=== PATIENT | female | born 1930 | race Caucasian/White ===

== ENCOUNTER 2016-12-06 07:14 | Observation (INO) ==
--- NOTE | 2016-12-06 07:37 | Emergency Department Note ---
Disposition Clinical Impression: Left arm pain, Chest pain, rule out acute myocardial infarction Disposition: Admitted As Inpatient Referrals: Denis Pulido MD [Primary Care Provider] - Forms: ED Satisfaction Letter Time of Disposition: 08:32 Extremity Problem HPI - General Chief complaint: ED Extremity Problem,Nontraumatic Stated complaint: Left Arm Pain Time Seen by Provider: 12/06/16 07:24 Source: patient, family Limitations: no limitations Nursing Notes Reviewed: Yes Vital Signs Reviewed: Yes - History of Present Illness HPI Narrative: 86-year-old nontoxic-appearing female presents to the emergency department for a chief complaint of left arm pain. The patient denies any known injury or trauma that could account for this pain. Of note, the patient is a rather poor historian, there is a history of dementia documented. She is unable to describe or rate her pain, however when asked specifically where the pain is located, she points to her elbow and motions from the elbow to her wrist. She does however deny any chest pain, shortness of breath, cough, or fever. The patient's caregiver is at the bedside during my examination. The patient's caregiver states that she is given the patient her regularly prescribed medication without relief of symptoms. Pt Subjective Complaint: extremity pain (Left upper extremity pain) Onset (ago): day(s) (3 days) Consistency: constant Injury Location: left, upper extremity Pain Scale: 0 Radiation: distal (From the elbow distally) Improves with: nothing Worsens with: nothing Associated symptoms: Denies: chest pain, shortness of breath, abdominal pain, back pain, fever - Related Data Home Medications Medication Instructions Recorded Confirmed Atenolol [Tenormin] 100 mg PO DAILY 10/29/15 11/27/16 Cholecalciferol (Vitamin D3) 2,000 unit PO DAILY 10/29/15 11/27/16 [Vitamin D3] Cranberry Fruit Extract [Cranberry] 250 mg PO BID 10/29/15 11/27/16 Docusate Sodium [Colace] 100 mg PO BID PRN 10/29/15 11/27/16 Donepezil [Aricept] 10 mg PO HS 10/29/15 11/27/16 Folic Acid/Multivit-Min/Lutein 1 each PO DAILY 10/29/15 11/27/16 [Adult Multivitamin Gummies] Levothyroxine [Synthroid] 25 mcg PO DAILY 10/29/15 11/27/16 Memantine HCl [Namenda Xr] 21 mg PO DAILY 10/29/15 11/27/16 Ferrous Sulfate 325 mg PO BID 02/28/16 11/27/16 Mirabegron [Myrbetriq] 50 mg PO DAILY 07/04/16 11/27/16 Previous Rx's Medication Instructions Recorded Aspirin 81 mg PO DAILY tab.chew 03/02/16 Amlodipine [Norvasc] 5 mg PO DAILY #30 tablet 07/07/16 Anastrozole [Arimidex] 1 mg PO DAILY #90 tablet 08/28/16 Nitrofurantoin (BID) [Macrobid] 100 mg PO BID #14 capsule 11/27/16 Allergies Allergy/AdvReac Type Severity Reaction Status Date / Time No Known Allergies Allergy Verified 11/27/16 16:07 All systems ED: reviewed and negative except as stated. Constitutional: Denies: fever, chills, weakness, weight change Eyes: Denies: eye pain, eye discharge, vision change ENT ED: Denies: ear pain, throat pain, dental pain, hearing loss, epistaxis, congestion, dysphagia Cardiovascular: Denies: chest pain, palpitations, dyspnea on exertion, edema, syncope Respiratory: Denies: cough, dyspnea, wheezes, hemoptysis, stridor Gastrointestinal: Denies: abdominal pain, nausea, vomiting, diarrhea, constipation, hematemesis, melena, hematochezia Genitourinary: Denies: dysuria, frequency, hematuria, discharge Musculoskeletal: Reports: as per HPI, arthralgia (Left elbow pain), myalgia ( left Arm pain). Denies: back pain, neck pain Integumentary: Denies: rash, abrasion, lesions Neurological: Denies: headache, weakness, numbness, paresthesias, confusion, abnormal gait, vertigo Psychiatric: Denies: anxiety, depression, suicidal thoughts, homicidal thoughts , auditory hallucinations, visual hallucinations Endocrine: Denies: fatigue Hematological/Lymphatic: Denies: easy bleeding, easy bruising Allergic/Immunologic: Denies: facial swelling, urticaria Past Medical History - Past Medical History Attestation: Yes The following information was validated with the patient. 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 Absent: nystagmus - ENT ENT exam: mucous membranes moist - Neck Neck exam: Present: normal inspection, full ROM, trachea midline - Chest Chest inspection: Present: normal inspection, symmetric chest wall rise - Respiratory Respiratory exam: Present: normal lung sounds bilaterally. Absent: respiratory distress, wheezes, stridor, accessory muscle use, prolonged expiratory phase - Cardiovascular Cardiovascular exam: Present: normal rhythm, bradycardia (Ventricular rate of 49 bpm. The patient's caregiver has documentation from the patient's most recent visit at her primary care provider's office, where her heart rate was documented as 50 bpm.), normal heart sounds - Abdominal Exam Abdominal exam: Present: soft, Non-Tender, normal bowel sounds. Absent: tenderness, distention, guarding, rebound, rigidity - Expanded Upper Extremity Exam Shoulder exam: Present: normal inspection, full ROM. Absent: tenderness, tenderness over AC joint Arm exam: Present: normal inspection, full ROM. Absent: tenderness, swelling, abrasion, ecchymosis, deformity, erythema Elbow exam: Present: normal inspection, full ROM. Absent: tenderness (No tenderness to palpation), swelling, ecchymosis, deformity, crepitus, dislocation , erythema, effusion, pain w/ pronation/supination, tenderness over radial head Forearm/Wrist exam: Present: normal inspection, full ROM. Absent: tenderness, swelling, ecchymosis, deformity, crepitus, dislocation, erythema, tenderness over anatomical snuff box, pain with axial thumb loading Hand exam: Present: normal inspection, full ROM. Absent: tenderness, swelling Neuromotor exam: Normal: wrist extension, thumb opposition, fingers 2-5 abduction Neurosensory exam: Normal: radial nerve, ulnar nerve, 2-point discrimination Hand tendon exam: Normal: flexor digitorum profundus (location), extensor tendon (location) Vascular exam: Normal: capillary refill, radial pulse, ulnar pulse - Neurological Exam Neurological exam: Present: alert - Psychiatric Psychiatric exam: Present: normal affect, normal mood - Skin Skin exam: Present: warm, dry, intact, normal color Course Course Narrative: I have discussed with the patient's daughter who is at bedside that has the patient's complaint of nontraumatic left arm pain, we must rule out a cardiac origin of her pain. The patient's daughter is in agreement with this plan. The patient's daughter states she is given her her regularly prescribed extra strength Tylenol without relief of symptoms. The patient's daughter does state that the patient has complained of pain that radiates from the elbow down. We will obtain x-ray imaging of the elbow forearm and wrist as well as a complete cardiac workup. The patient denies any neck, jaw, or left shoulder pain. The patient's daughter he remains in the room states that the patient has not complained of any nausea, vomiting, worsening shortness of breath, or any other complaints at this time. I have discussed this patient's case with Dr. Jack, who recommends admission to the hospital service for observation. I discussed this plan with the patient 's daughter and the patient's daughter is in agreement. 0832: I spoke with Dr. Tellez of the hospital service who accepts the patient for admission for observation. Vital Signs Temperature 98.5 F 12/06/16 07:21 Pulse Rate 50 12/06/16 07:21 Respiratory Rate 18 12/06/16 07:21 Blood Pressure 112/87 12/06/16 07:21 O2 Sat by Pulse Oximetry 97 12/06/16 07:21 Temperature 98.5 F 12/06/16 07:21 Pulse Rate 44 12/06/16 08:34 Respiratory Rate 16 12/06/16 08:34 Blood Pressure 153/92 12/06/16 08:34 O2 Sat by Pulse Oximetry 96 12/06/16 08:34 Oxygen Delivery Oxygen Delivery Room Air Extremity Problem, Nontraumati - MDM Narrative Medical decision making narrative: The patient has a heart-MACE score of 5. - Medical Records Medical records reviewed: Yes I reviewed the patient's medical records. - Lab Data Lab results reviewed: Yes I reviewed the patient's lab results. Lab results narrative: Laboratory Last Values WBC 3.5 K/mcL (4.3-11.1) L 12/06/16 07:37 RBC 3.42 M/mcL (3.82-4.97) L 12/06/16 07:37 Hgb 11.4 g/dL (11.5-15.4) L 12/06/16 07:37 Hct 34.7 % (35.3-44.9) L 12/06/16 07:37 MCV 101.5 fL (83.0-100.0) H 12/06/16 07:37 MCH 33.3 pg (28.0-33.3) 12/06/16 07:37 MCHC 32.9 g/dL (31.6-35.5) 12/06/16 07:37 RDW 13.0 % (11.5-14.5) 12/06/16 07:37 Plt Count 136 K/mcL (140-400) L 12/06/16 07:37 MPV 10.1 fL (9.4-12.4) 12/06/16 07:37 Immature Gran % 0.3 % (0-4) 12/06/16 07:37 Seg Neutrophils % 62.3 % 12/06/16 07:37 Lymphocytes % 23.1 % 12/06/16 07:37 Monocytes % 11.7 % 12/06/16 07:37 Eosinophils % 2.3 % 12/06/16 07:37 Basophils % 0.3 % 12/06/16 07:37 Neutrophils # 2.2 K/mcL (1.6-8.9) 12/06/16 07:37 Lymphocytes # 0.8 K/mcL (0.6-4.6) 12/06/16 07:37 Monocytes # 0.4 K/mcL (0.0-1.3) 12/06/16 07:37 Eosinophils # 0.1 K/mcL (0.0-0.6) 12/06/16 07:37 Basophils # 0.0 K/mcL (0.0-0.2) 12/06/16 07:37 PT 10.6 Seconds (9.4-12.1) 12/06/16 07:37 INR 1.0 12/06/16 07:37 APTT 28.1 Seconds (26.0-36.0) 12/06/16 07:37 Sodium 140 mEq/L (136-145) 12/06/16 07:37 Potassium 4.1 mEq/L (3.5-4.5) 12/06/16 07:37 Chloride 105 mEq/L (98-109) 12/06/16 07:37 Carbon Dioxide 26 mEq/L (19-29) 12/06/16 07:37 BUN 31 mg/dL (7-20) H 12/06/16 07:37 Creatinine 1.55 mg/dL (0.57-1.11) H 12/06/16 07:37 Est GFR ( Amer) 39 (> 60) L 12/06/16 07:37 Est GFR (Non-Af Amer) 32 (> 60) L 12/06/16 07:37 BUN/Creatinine Ratio 20 (6-26) 12/06/16 07:37 Glucose 123 mg/dL (70-99) H 12/06/16 07:37 POC Glucose 148 (58-89) H 12/06/16 08:03 Calculated Osmolality 298 (280-300) 12/06/16 07:37 Calcium 9.3 mg/dL (8.6-10.8) 12/06/16 07:37 Troponin I 0.02 ng/mL (0-0.03) 12/06/16 07:37 Result diagrams: 12/06/16 07:37 12/06/16 07:37 Lab Results 12/06/16 12/06/16 12/06/16 Range/Units 07:37 07:37 07:37 WBC 3.5 L (4.3-11.1) K/mcL RBC 3.42 L (3.82-4.97) M/mcL Hgb 11.4 L (11.5-15.4) g/dL Hct 34.7 L (35.3-44.9) % MCV 101.5 H (83.0-100.0) fL MCH 33.3 (28.0-33.3) pg MCHC 32.9 (31.6-35.5) g/dL RDW 13.0 (11.5-14.5) % Plt Count 136 L (140-400) K/mcL MPV 10.1 (9.4-12.4) fL Immature Gran % 0.3 (0-4) % Seg Neutrophils % 62.3 % Lymphocytes % 23.1 % Monocytes % 11.7 % Eosinophils % 2.3 % Basophils % 0.3 % Neutrophils # 2.2 (1.6-8.9) K/mcL Lymphocytes # 0.8 (0.6-4.6) K/mcL Monocytes # 0.4 (0.0-1.3) K/mcL Eosinophils # 0.1 (0.0-0.6) K/mcL Basophils # 0.0 (0.0-0.2) K/mcL PT 10.6 (9.4-12.1) Seconds INR 1.0 APTT 28.1 (26.0-36.0) Seconds Sodium 140 (136-145) mEq/L Potassium 4.1 (3.5-4.5) mEq/L Chloride 105 (98-109) mEq/L Carbon Dioxide 26 (19-29) mEq/L BUN 31 H (7-20) mg/dL Creatinine 1.55 H (0.57-1.11) mg/dL Est GFR ( Amer) 39 L (> 60) Est GFR (Non-Af Amer) 32 L (> 60) BUN/Creatinine Ratio 20 (6-26) Glucose 123 H (70-99) mg/dL POC Glucose (58-89) Calculated Osmolality 298 (280-300) Calcium 9.3 (8.6-10.8) mg/dL Troponin I (0-0.03) ng/mL 12/06/16 12/06/16 Range/Units 07:37 08:03 WBC (4.3-11.1) K/mcL RBC (3.82-4.97) M/mcL Hgb (11.5-15.4) g/dL Hct (35.3-44.9) % MCV (83.0-100.0) fL MCH (28.0-33.3) pg MCHC (31.6-35.5) g/dL RDW (11.5-14.5) % Plt Count (140-400) K/mcL MPV (9.4-12.4) fL Immature Gran % (0-4) % Seg Neutrophils % % Lymphocytes % % Monocytes % % Eosinophils % % Basophils % % Neutrophils # (1.6-8.9) K/mcL Lymphocytes # (0.6-4.6) K/mcL Monocytes # (0.0-1.3) K/mcL Eosinophils # (0.0-0.6) K/mcL Basophils # (0.0-0.2) K/mcL PT (9.4-12.1) Seconds INR APTT (26.0-36.0) Seconds Sodium (136-145) mEq/L Potassium (3.5-4.5) mEq/L Chloride (98-109) mEq/L Carbon Dioxide (19-29) mEq/L BUN (7-20) mg/dL Creatinine (0.57-1.11) mg/dL Est GFR ( Amer) (> 60) Est GFR (Non-Af Amer) (> 60) BUN/Creatinine Ratio (6-26) Glucose (70-99) mg/dL POC Glucose 148 H (58-89) Calculated Osmolality (280-300) Calcium (8.6-10.8) mg/dL Troponin I 0.02 (0-0.03) ng/mL - Radiology Data Radiology results reviewed: Yes I reviewed the patient's radiology results. Chest X-Ray 12/06/16 07:25 IMPRESSION: 1. Pulmonary vascular congestion and mild cardiomegaly. 2. At least trace left pleural effusion. 3. Bibasilar atelectasis. D/ / Moncho Robles MD / Moncho Robles MD Interpreting Provider: Moncho Robles MD Elbow X-Ray 12/06/16 07:48 IMPRESSION: No acute osseous abnormality of the left elbow. D/ / Bird Randle MD / Bird Randle MD Interpreting Provider: Bird Randle MD Wrist X-Ray 12/06/16 07:48 IMPRESSION: 1. Osteopenia. No acute osseous abnormality of the left wrist. 2. Stable postsurgical changes of the distal left radius and ulna. No evidence of hardware complication. 3. Malalignment of the carpus, with volar displacement of the lunate, similar to 2012. Findings are consistent with ligamentous injury. D/ / Bird Randle MD / Bird Randle MD Interpreting Provider: Bird Randle MD - EKG Data EKG attestation: Yes I reviewed and interpreted this EKG. EKG results narrative: EKG reviewed by Dr. Jack as well. EKG shows a sinus bradycardia with borderline left axis deviation at a rate of 49 beats per minute. No ectopy noted. No STEMI. Attestation Statement - Attestation Attestation: I examined this patient and my medical decision-making was reviewed with the Advanced Practice Nurse. I agree with the documented findings, disposition and treatment plan as described except to the extent set forth below. Clinical suspicion for ischemia is low, but she is a very poor historian who is high-risk for heart disease, HEART score 5. Admit for observation and further evaluation.
[2016-12-06 07:45] LABS: Basophils % 0.3 %; Eosinophils # 0.1 K/mcL (0.0-0.6); Eosinophils % 2.3 %; Hematocrit 34.7 % (35.3-44.9); Hemoglobin 11.4 g/dL (11.5-15.4); Immature Granulocytes % 0.3 % (0-4); Lymphocytes # 0.8 K/mcL (0.6-4.6); Lymphocytes % 23.1 %; Mean Corpuscular HGB Conc 32.9 g/dL (31.6-35.5); Mean Corpuscular Hemoglobin 33.3 pg (28.0-33.3); Mean Corpuscular Volume 101.5 fL (83.0-100.0); Mean Platelet Volume 10.1 fL (9.4-12.4); Monocytes # 0.4 K/mcL (0.0-1.3); Monocytes % 11.7 %; Neutrophils # 2.2 K/mcL (1.6-8.9); Platelet Count 136 K/mcL (140-400); Red Blood Count 3.42 M/mcL (3.82-4.97); Segmented Neutrophils % 62.3 %
[2016-12-06 07:49] LABS: Prothrombin Time 10.6 Seconds (9.4-12.1)
[2016-12-06 07:51] LABS: Activated Partial Thrombo Time 28.1 Seconds (26.0-36.0)
[2016-12-06 07:55] LABS: Calcium 9.3 mg/dL (8.6-10.8); Potassium 4.1 mEq/L (3.5-4.5)
[2016-12-06] MEDS ORDERED: Naloxone 0.4 MG/ML INJ IVP PRN (10:31)
--- NOTE | 2016-12-06 10:42 | Internal Med History&Physical ---
<Weaver,Cintia J - Last Filed: 12/06/16 11:44> Date of Encounter: 12/06/16 Time of Encounter: 10:51 Assessment and Plan (1) Diastolic CHF, acute Current visit: Yes Status: Acute suspected. CXR with pulmonary vascular congestion. With rales and lower extremity edema on exam. Last TTE 02/2016 with EF 60%, normal systolic and diastolic fx. Not on diuretics at home. STAT BNP, repeat echo. (2) Left arm pain Current visit: Yes Status: Acute known left wrist injury with hardware placement in 2011. Now with reported worsening left arm pain however pain resolved on admission. Left wrist x-ray consistent with ligament injury, no hardware displacement. Suspect pain related to known injury, however will trend troponin to rule out ACS. Initial tropoin negative. EKG with SB, no acute ST changes. Cont supportive care with Tylenol, LIZA wrap/splint for left wrist pain. Can follow-up outpatient with PCP (3) CKD (chronic kidney disease), stage III Current visit: No Status: Chronic per hx. Cr 1.5; baseline variable ranging from 1.3-1.9 over the last last year. No further work-up needed. (4) Essential (primary) hypertension Current visit: Yes Status: Acute per hx. BP variable but acceptable. Holding home BB with bradycardia (HRs in 40' s). Hold BB for now, resume at 50mg when HR improved. Cont home amlodipine. Monitor BP and titrate PRN (5) Anemia Current visit: No Status: Chronic per hx. Hgb 11.4 which appears at baseline. Cont home iron supplement Qualifiers: Anemia type: iron deficiency Iron deficiency anemia type: unspecified iron deficiency Qualified Code(s): D50.9 - Iron deficiency anemia, unspecified (6) Hypothyroidism Current visit: No Status: Chronic per hx. Cont home synthyroid Qualifiers: Hypothyroidism type: unspecified Qualified Code(s): E03.9 - Hypothyroidism , unspecified (7) Dementia Current visit: No Status: Chronic per hx. Appears at baseline. Cont home aricept. Supportive care Qualifiers: Dementia type: vascular dementia Dementia behavioral disturbance: without behavioral disturbance Qualified Code(s): F01.50 - 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 disturbance (8) DVT prophylaxis Current visit: No Status: Acute heparin Internal Medicine - H&P: HPI Chief complaint: left arm pain Admitted From: Home Plans for Post Hospital Care: Home History of present illness: Ms. Nice is a 86 year old female with PMH HTN, hypothyroidism, anemia, CKD, dementia and known left wrist injury who presents to [facility] on 12/06/2016 with complaints of left wrist pain. CXR showed pulm congestion and exam revaled lower ext edema. She was placed in observation status to trend toponin and repeat echo to evaluate for acute CHF. Information obtained from chart review and daughter as patient has dementia and is poor historian. Per daughter, patient complained of left arm pain from elbow to wrist. Daughter gave extra strength Tylenol and used topical numbing spray which typically alleviates pain. Pain persisted so daughter brought to ED. On my exam, the patient has no complaints. Denies left arm pain, no CP, no SOB, no ABD pain, no N/V/D. Daughter does endorses and intermittent dry cough, has not noticed SOB Past Med Surg Social Fam HX - Past Medical History Medical history: CHF, dementia, hypertension, renal disease, thyroid disease Psychiatric history: no psych history - Past Surgical History Surgical History: orthopedic, other, other, vascular surgery - Social History Smoking Status: Never smoker Smokeless Tobacco Status: No Alcohol use: none Drug use: none - Family History Mother Living Status: Hx Family Cardiac Disorders: Yes Internal Medicine - H&P: Meds RX: Atenolol [Tenormin] 100 mg PO DAILY 10/29/15 [History] RX: Cholecalciferol (Vitamin D3) [Vitamin D3] 2,000 unit PO DAILY 10/29/15 [ History] RX: Cranberry Fruit Extract [Cranberry] 250 mg PO BID 10/29/15 [History] RX: Docusate Sodium [Colace] 100 mg PO BID PRN 10/29/15 [History] RX: Donepezil [Aricept] 10 mg PO HS 10/29/15 [History] RX: Folic Acid/Multivit-Min/Lutein [Adult Multivitamin Gummies] 1 tab PO DAILY 10/29/15 [History] RX: Levothyroxine [Synthroid] 25 mcg PO DAILY 10/29/15 [History] RX: Memantine HCl [Namenda Xr] 21 mg PO DAILY 10/29/15 [History] RX: Ferrous Sulfate 325 mg PO BID 02/28/16 [History] RX: Aspirin 81 mg PO DAILY tab.chew 03/02/16 [Rx] RX: Amlodipine [Norvasc] 5 mg PO DAILY #30 tablet 07/07/16 [Rx] Anastrozole [Arimidex] 1 mg PO DAILY #90 tablet 08/28/16 [Rx] Allergies No Known Allergies Allergy (Verified 11/27/16 16:07) All Systems PM: A 10-system review of systems was performed and is negative for pertinent findings except as documented above in the HPI. - Constitutional Constitutional: no chills, no fever(s), no night sweats - EENT Eyes: no change in vision, no discharge, no pain, no photophobia Ears: no ear discharge, no ear pain, no tinnitus Nose, mouth and throat: no dysphagia, no nasal discharge, no neck pain, no sore throat - Cardiovascular Cardiovascular ROS IM: no chest pain, no diaphoresis, no dyspnea, no lightheadedness, no palpitations, no syncope - Respiratory Respiratory: no cough, no dyspnea, no wheezing, no excessive phlegm production - Gastrointestinal Gastrointestinal: no abdominal pain, no diarrhea, no hematemesis, no hematochezia, no melena, no nausea, no vomiting - Genitourinary Genitourinary: no change in urinary stream, no dysuria, no flank pain, no hematuria - Musculoskeletal Musculoskeletal ROS IM: no numbness, no tingling - Integumentary Integumentary IM: no rash, no unusual bruising - Neurological Neurological ROS: no confusion, no convulsions, no focal weakness, no numbness, no tingling, no tremor(s) - Hematologic/Lymphatic Hematologic/Lymphatic: no easy bruising - Constitutional Vitals: Temp Pulse Resp BP Pulse Ox 98.3 F 46 16 169/58 98 12/06/16 09:40 12/06/16 09:40 12/06/16 09:40 12/06/16 09:40 12/06/16 09:40 General appearance: Present: cooperative, A&O X 1, morbidly obese, no acute distress - Head Head exam: Present: atraumatic, normocephalic - Eye Eye exam: Present: PERRL, conjuntiva pink, sclera anicteric Pupils: Present: PERRL - Neck Neck exam general surgery: Present: supple, trachea midline. Absent: lymphadenopathy - Respiratory Respiratory exam: Present: rhonchi, wheezes. Absent: accessory muscle use, rales - Cardiovascular Cardiovascular exam: Present: RRR, +S1, +S2. Absent: diastolic murmur, gallop, rubs, systolic murmur - GI/Abdominal GI/Abdominal exam: Present: normal bowel sounds, soft, no peritoneal signs. Absent: distended, tenderness - Extremities Exam Extremities exam: Present: pedal edema, warm, radial pulses palpable and symetrical. Absent: calf tenderness, cyanotic - Neurological Exam Neurological exam: Present: alert, CN II-XII intact, no focal deficits. Absent : pronater drift, facial droop, speech deficit Additional comments: alert to self only, knows she is in hospital - Skin Skin exam: Present: dry, intact, pallor Internal Med - H&P Results - Labs CBC & Chem 7: 12/06/16 07:37 12/06/16 07:37 <Denisse Tellez - Last Filed: 12/06/16 12:12> Date of Encounter: 12/06/16 Time of Encounter: 11:00 Internal Medicine - H&P: HPI History of present illness: Ms. Nice is a 86 year old female All Systems PM: A 10-system review of systems was performed and is negative for pertinent findings except as documented above in the HPI. - Constitutional Vitals: Temp Pulse Resp BP Pulse Ox 97.9 F 78 17 156/84 99 12/06/16 11:11 12/06/16 11:11 12/06/16 11:11 12/06/16 11:11 12/06/16 11:11 Internal Med - H&P Results - Labs CBC & Chem 7: 12/06/16 07:37 12/06/16 07:37 Labs: Cardiac Enzymes 12/06/16 Range/Units 10:53 Troponin I 0.01 (0-0.03) ng/mL - Attending Attestation I examined this patient and my medical decision-making was reviewed with the nurse practitioner. I agree with the documented history of present illness, review of systems, past medical, surgical social and family histories and examination findings, disposition and treatment plan as described above except to any changes set forth below. 86-year-old female patient with history of hypertension, prior left wrist fracture status post surgery presented with left forearm and hand pain. Chest x -ray done here but shows possible ligamentous injury Which is chronic. Likely cause for the patient's pain. Chest x-ray shows pulmonary congestion and atelectasis and patient does have some rhonchi and pedal edema on exam. No orthopnea or PND. EKG shows sinus bradycardia. Possible chronic diastolic congestive heart failure: Will get 2-D echo. Trend troponins. If troponins are negative, and echo does not show any significant changes compared to the one done last year, patient may be discharged home for follow-up with primary care provider for further management. Left forearm and hand pain: Likely related to chronic ligament injury. Supportive care. Pain control. Outpatient physical therapy. Essential hypertension: Monitor blood pressure. Asymptomatic sinus bradycardia: Asymptomatic. Hold atenolol for now and decrease dosage at discharge.
[2016-12-06] MEDS: *HR* Heparin 5,000 UNIT/ML VIAL SQ SCH ×2 (14:15→20:53)
--- NOTE | 2016-12-06 15:28 | Electrocardiograph Report ---
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
[2016-12-07 05:14] LABS: Basophils % 0.3 %; Eosinophils # 0.1 K/mcL (0.0-0.6); Eosinophils % 2.4 %; Hematocrit 31.5 % (35.3-44.9); Hemoglobin 10.5 g/dL (11.5-15.4); Immature Granulocytes % 0.3 % (0-4); Lymphocytes # 1.1 K/mcL (0.6-4.6); Lymphocytes % 31.9 %; Mean Corpuscular HGB Conc 33.3 g/dL (31.6-35.5); Mean Corpuscular Hemoglobin 33.7 pg (28.0-33.3); Mean Platelet Volume 10.7 fL (9.4-12.4); Monocytes # 0.6 K/mcL (0.0-1.3); Monocytes % 16.7 %; Neutrophils # 1.6 K/mcL (1.6-8.9); Platelet Count 126 K/mcL (140-400); Red Blood Count 3.12 M/mcL (3.82-4.97); Red Cell Distribution Width 13.1 % (11.5-14.5); Segmented Neutrophils % 48.4 %
[2016-12-07 05:52] LABS: Calcium 9.2 mg/dL (8.6-10.8); Chol/HDL Ratio 6.6 (0-4.9); Potassium 4.2 mEq/L (3.5-4.5)
[2016-12-07] MEDS: *HR* Heparin 5,000 UNIT/ML VIAL SQ SCH ×3 (06:28→21:11)
[2016-12-07] MEDS: MEMANTINE HCL 21 MG PO SCH (08:12)
[2016-12-07] MEDS: Levothyroxine 25 MCG TABLET PO SCH (08:19)
[2016-12-07] MEDS: Anastrozole 1 MG TABLET PO SCH (08:19)
[2016-12-07] MEDS: Aspirin 81 MG TAB.CHEW PO SCH (08:19)
[2016-12-07] MEDS: Multivit/Ca/Min/Fe/FA 1 TAB TABLET PO SCH (08:19)
[2016-12-07] MEDS: Cholecalciferol (D-3) 1,000 UNIT TABLET PO SCH (08:19)
[2016-12-07] MEDS: amLODIPine 5 MG TABLET PO SCH (08:19)
--- NOTE | 2016-12-07 08:51 | Electrocardiograph Report ---
[place] [id number] Test Date: 2016-12-06 Pat Name: Sary Nice Department: 102 Room: 3B47 Gender: F [employer] Instructor: Malissa : 1930 Requested By: Asia Nash Order Number: [id number] Reading MD: Adri Roche Measurements Intervals [place] Rate: 49 P: 65 VT: 204 QRS: -22 QRSD: 94 T: 67 QT: 453 QTc: 423 Interpretive Statements SINUS BRADYCARDIA BORDERLINE LEFT AXIS DEVIATION [QRS AXIS < -20] LEFT VENTRICULAR HYPERTROPHY AND ST-T CHANGE [VOLTAGE CRITERIA PLUS ST/T ABNORMALITY] Electronically Signed On 12-07-2016 8:50:00 EDT by Adri Roche
--- NOTE | 2016-12-07 10:58 | ECHO - Doppler Report ---
Echocardiogram Name: Sary Nice Date of Study: 12/06/2016 Date: 1930 Ht: 62.0 in Medical Record#: [id number] Age: 86 Wt: 224.0 lb Gender: Female BSA: 2.01 Order #: [id number] Location: [facility] Room #: [facility] Reading Physician: Zackery Lawler DO, FACMarisa, APARNA Pouch Making Machine Operator: Hanh Cisse RDCS Ordering Physician: Cintia Weaver CNP Primary Physician: Denis Pulido MD Indications: Acute heart failure Impressions: LVEF 60%. Normal LV chamber size and function. Mild concentric left ventricular hypertrophy. Mild left ventricular diastolic dysfunction. Atypical septal motion consistent with bundle branch block. Normal right ventricular structure and function. No evidence of pulmonary hypertension identified. Left Ventricular Wall Motion: Rest Echo Findings All wall segments showed normal motion. Findings: Study Quality * Technically sub-optimal due to poor echocardiographic windows. ECG Findings * Sinus bradycardia. Left Ventricle * LVEF 60%. * Normal LV chamber size and function. * Mild concentric left ventricular hypertrophy. * Mild left ventricular diastolic dysfunction. * Atypical septal motion consistent with bundle branch block. Right Ventricle * Normal right ventricular structure and function. Left Atrium * Mildly dilated left atrium. Right Atrium * Normal right atrial size. Interatrial Septum * Interatrial septum not well evaluated. Aortic Valve * Aortic valve not well visualized. * No aortic regurgitation. * No aortic stenosis. Mitral Valve * Normal mitral valve structure and function. * No mitral regurgitation. * No mitral stenosis. Tricuspid Valve * Normal tricuspid valve structure and function. * Trace tricuspid regurgitation. * No evidence of pulmonary hypertension. Pulmonic Valve * Normal pulmonic valve structure and function. * No pulmonic regurgitation. Aorta * Normally sized aortic root. Pericardium * The pericardium appears normal. IVC * Normal IVC dimensions and inspiratory collapse. Pulmonary Artery * Normal visualized portions of the main pulmonary artery. History Hypertension Family History of CAD Congestive Heart Failure 02/29/2016 a Previous Echo was performed. Measurements: BP: 161/ 72 2D Normal Values RVIDd: 4.12 cm <2.7 cm IVSd: 1.20 cm 0.6 - 1.0 cm LVIDd: 4.15 cm 3.7 - 5.6 cm LVPWd: 1.21 cm 0.6 - 1.1 cm LVIDs: 2.27 cm 1.5 - 3.6 cm AO: 2.80 cm < 4.0 cm LA: 3.60 cm 2.0 - 4.0cm %FS: 45.30 cm >25 % LA volume: 60 Mitral Valve Peak E:.57 m/sec Peak A:.63 m/sec E/A Ratio:0.9 Peak E' Lat Bhupendra:7.71 cm/s Peak E' Med Bhupendra:6.59 cm/s E/E' Lat Ratio:7.4 E/E' Med Ratio:8.7 Tricuspid Valve TV Regurg Peak Grad: 20.00mmHg TV Regurg Peak Bhupendra: 2.25m/sec Updated by Zackery Lawler DO, FACMarisa, APARNA, KETTY on 12/07/2016 10:54:35 AM electronically signed on 12/07/2016 10:54:55 AM with status of Final Wall Motion Martin: 1=Normal, 2=Hypokinesis, 3=Akinesis, 4=Dyskinesis, 5=Aneurysmal, 6=Hyperkinetic, X=Not Visualized (Blank)=Missing
[2016-12-07] MEDS ORDERED: Albuterol 2.5 MG/3 ML NEBULIZER IH PRN (13:27)
[2016-12-07] MEDS ORDERED: Albuterol 2.5 MG/3 ML NEBULIZER IH ONE (13:28)
--- NOTE | 2016-12-07 13:29 | Internal Med Progress Note ---
Date of Encounter: 12/07/16 Time of Encounter: 08:55 - Assessment and plan (1) Diastolic CHF, acute Current Visit: Yes Status: Acute Assessment and plan: BNP> 300. CXR with pulmonary vascular congestion. Patient had rails on admission exam. Today she has diminished lung sounds with expiratory wheezing audibly. Patient does have minimal lower extremity edema. Patient daughter both say that her legs look unchanged from normal. He is not take diuretics at home. Echocardiogram shows LVEF of 60%, normal LV size and function. Mild concentric LV hypertrophy, mild LV diastolic dysfunction. Atypical septal motion consistent with bundle branch block. She has normal right ventricular structure and function, no evidence of pulmonary hypertension. Patient denies chest pain. (2) Left arm pain Current Visit: Yes Status: Resolved Assessment and plan: Patient denies left arm pain today. She says, "it must be the way I have not lying on the table." X-rays of arm are negative from the ER. She has a palpable pulse. She has passive and active range of motion. Capillary refill is brisk. Continue to monitor (3) Essential (primary) hypertension Current Visit: Yes Status: Chronic Assessment and plan: Chronic. Continue home medications. Within normal limits in inpatient setting. (4) Dementia Current Visit: No Status: Chronic Assessment and plan: Patient is alert and oriented to name. Chronic. Continue Aricept. Qualifiers: Dementia type: vascular dementia Dementia behavioral disturbance: without behavioral disturbance Qualified Code(s): F01.50 - 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 disturbance (5) Anemia Current Visit: Yes Status: Chronic Assessment and plan: Hemoglobin 10.5 today. Appears to be near patient's baseline. Continue iron supplementation. Continue to monitor labs Prepared to transfuse if hemoglobin less than 8. Qualifiers: Anemia type: iron deficiency Iron deficiency anemia type: unspecified iron deficiency Qualified Code(s): D50.9 - Iron deficiency anemia, unspecified (6) Hypothyroidism Current Visit: No Status: Chronic Assessment and plan: Chronic. Continue home medication. Qualifiers: Hypothyroidism type: unspecified Qualified Code(s): E03.9 - Hypothyroidism , unspecified (7) DVT prophylaxis Current Visit: No Status: Acute Assessment and plan: Subcutaneous heparin daily. - Time Spent With Patient less than 15 minutes - Subjective Interval history: Patient was seen and examined at about 8:55 AM. Patient is sitting up in her bed alert answers questions appropriately. Daughter at bedside answers most questions for patient, despite the fact patient can answer some questions by herself. Patient has intermittent, infrequent dry cough. Effort is cough is weak. She does have audible faint expiratory wheezing. Daughter states that she is very concerned about patient's cough. I did order 1 albuterol treatment for now and when necessary wheezing. I also will order Mucinex when necessary cough. I did discuss patient's lipid panel results with patient and daughter. Daughter states the patient was on Lipitor for a short time and had very bad leg pain. I said we could change classifications if she was interested, and explained that with patient's age that the side effects may not necessarily be worth it. She was unwilling to discuss anything else and said they would talk about it tomorrow. Daughter lives with patient and is resistant to any assistance from social research assistant. To me she said she did not want PT or OT, however, to the primary nurse she did agree to PT and OT. - Constitutional Vitals: Temp Pulse Resp BP Pulse Ox 98.2 F 52 16 149/81 95 12/07/16 11:50 12/07/16 11:50 12/07/16 11:50 12/07/16 11:50 12/07/16 11:50 General appearance: Present: cooperative, A&O X 1, morbidly obese, no acute distress - Head Head exam: Present: normal inspection - Eye Eye exam: Present: normal appearance, conjuntiva pink - ENT ENT exam: Present: mucous membranes moist, normal exam - Neck Neck exam general surgery: Present: normal inspection. Absent: lymphadenopathy , tenderness - Respiratory Respiratory exam: Present: wheezes. Absent: accessory muscle use, decreased breath sounds, respiratory distress, rhonchi, stridor - Cardiovascular Cardiovascular exam: Present: RRR, +S1, +S2. Absent: diastolic murmur, systolic murmur - GI/Abdominal GI/Abdominal exam: Present: normal bowel sounds. Absent: distended, hepatomegaly, tenderness - Extremities Exam Extremities exam: Present: normal capillary refill, normal inspection, pedal edema, warm, radial pulses palpable and symetrical. Absent: tenderness Additional comments: Minimal pedal edema, perhaps +1, nonpitting - Neurological Exam Neurological exam: Present: alert, no focal deficits, strengths equal and symetr throughout. Absent: oriented X3, facial droop, speech deficit Internal Medicine: Result - Labs CBC & Chem 7: 12/07/16 04:48 12/07/16 04:48 Labs: Short CBC 12/07/16 Range/Units 04:48 WBC 3.4 L (4.3-11.1) K/mcL Hgb 10.5 L (11.5-15.4) g/dL Hct 31.5 L (35.3-44.9) % Plt Count 126 L (140-400) K/mcL Neutrophils # 1.6 (1.6-8.9) K/mcL BMP 12/07/16 04:48 Sodium 139 Potassium 4.2 Chloride 107 Carbon Dioxide 21 BUN 27 H Creatinine 1.46 H Glucose 90 Calcium 9.2 Cardiac Enzymes 12/06/16 12/06/16 Range/Units 16:47 22:46 Troponin I 0.01 0.02 (0-0.03) ng/mL - ABG Interpretation ABG results: PT/INR, D-dimer PT 10.6 Seconds (9.4-12.1) 12/06/16 07:37 Consult Discharge Plan - Plan Referrals: Karen Salomon, [facility] [Advanced Practice Nurse] - 12/14/16 3:00 pm
[2016-12-07 18:40] LABS: Basophils % 0.6 %; Eosinophils # 0.1 K/mcL (0.0-0.6); Eosinophils % 1.4 %; Hematocrit 32.7 % (35.3-44.9); Immature Granulocytes % 0.3 % (0-4); Lymphocytes # 1.1 K/mcL (0.6-4.6); Lymphocytes % 29.6 %; Mean Corpuscular HGB Conc 33.6 g/dL (31.6-35.5); Mean Corpuscular Hemoglobin 33.5 pg (28.0-33.3); Mean Corpuscular Volume 99.7 fL (83.0-100.0); Mean Platelet Volume 10.9 fL (9.4-12.4); Monocytes # 0.6 K/mcL (0.0-1.3); Monocytes % 17.5 %; Neutrophils # 1.8 K/mcL (1.6-8.9); Platelet Count 135 K/mcL (140-400); Red Blood Count 3.28 M/mcL (3.82-4.97); Segmented Neutrophils % 50.6 %
[2016-12-07 18:52] LABS: Calcium 9.3 mg/dL (8.6-10.8); Potassium 4.1 mEq/L (3.5-4.5)
[2016-12-08] MEDS: *HR* Heparin 5,000 UNIT/ML VIAL SQ SCH (05:53)
[2016-12-08 08:27] LABS: Basophils % 0.3 %; Hematocrit 31.8 % (35.3-44.9); Hemoglobin 10.6 g/dL (11.5-15.4); Immature Granulocytes % 0.3 % (0-4); Lymphocytes # 1.1 K/mcL (0.6-4.6); Lymphocytes % 35.7 %; Mean Corpuscular HGB Conc 33.3 g/dL (31.6-35.5); Mean Corpuscular Hemoglobin 33.5 pg (28.0-33.3); Mean Corpuscular Volume 100.6 fL (83.0-100.0); Mean Platelet Volume 10.8 fL (9.4-12.4); Monocytes # 0.6 K/mcL (0.0-1.3); Monocytes % 19.5 %; Neutrophils # 1.3 K/mcL (1.6-8.9); Platelet Count 124 K/mcL (140-400); Red Blood Count 3.16 M/mcL (3.82-4.97); Segmented Neutrophils % 43.2 %
[2016-12-08 08:38] LABS: Calcium 9.1 mg/dL (8.6-10.8); Potassium 4.1 mEq/L (3.5-4.5)
[2016-12-08 08:57] LABS: Anisocytosis 1+ (Not Present); Platelet Estimate Slight Decrease (Normal)
[2016-12-08] MEDS: Anastrozole 1 MG TABLET PO SCH (09:13)
[2016-12-08] MEDS: amLODIPine 5 MG TABLET PO SCH (09:13)
[2016-12-08] MEDS: Levothyroxine 25 MCG TABLET PO SCH (09:13)
[2016-12-08] MEDS: Cholecalciferol (D-3) 1,000 UNIT TABLET PO SCH (09:13)
[2016-12-08] MEDS: Aspirin 81 MG TAB.CHEW PO SCH (09:13)
[2016-12-08] MEDS: Multivit/Ca/Min/Fe/FA 1 TAB TABLET PO SCH (09:13)
[2016-12-08] MEDS: MEMANTINE HCL 21 MG PO SCH (09:16)
[2016-12-08 11:45] VITALS: BP 167/83
--- NOTE | 2016-12-08 12:08 | Discharge Summary ---
Date of Encounter: 12/08/16 Time of Encounter: 09:00 - Discharge Diagnosis (1) Diastolic CHF, acute Priority: Primary Status: Acute Comments: BMP was greater than 300 admission. Chest x-ray showed pulmonary vascular congestion. Daughter has been concerned about patient having a cough, site ordered a repeat chest x-ray today. Repeat chest x-ray today shows stable mild bibasilar atelectasis, which was present in the original chest x-ray, left greater than right. Lungs are otherwise clear without acute airspace consolidation. Patient had some faint expiratory wheezing audibly yesterday. There are no rails present today there is no wheezing. Patient does have a dry infrequent cough. Echocardiogram showed LVEF of 60%, normal LV size and function. There is mild concentric LV hypertrophy, mild LV diastolic dysfunction. There is atypical septal wall motion consistent with bundle branch block. Ventricular structure and function, no evidence of pulmonary hypertension. Patient has no peripheral edema. I will send patient home with Mucinex for cough. Labs otherwise are at patient's baseline. (2) Left arm pain Priority: Secondary Status: Resolved Comments: Resolved. Patient denies any arm pain at all today. She says yesterday she feels it was probably just the way she was holding her arm on the bed when she was in the emergency department. X-rays were negative in the emergency department. She does have both active and passive range of motion, she also has good pulses and capillary refill. (3) Essential (primary) hypertension Priority: Secondary Status: Chronic Comments: Chronic. Continue home medications. (4) Dementia Priority: Secondary Status: Chronic Comments: Chronic. Continue Aricept at home . Qualifiers: Dementia type: vascular dementia Dementia behavioral disturbance: without behavioral disturbance Qualified Code(s): F01.50 - 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 disturbance (5) Anemia Priority: Secondary Status: Chronic Comments: Hbg 10.6 today, appears that this is close to pt's baseline. Continue Iron supplementation at home. Follow up with PCP outpatient. Qualifiers: Anemia type: iron deficiency Iron deficiency anemia type: unspecified iron deficiency Qualified Code(s): D50.9 - Iron deficiency anemia, unspecified (6) Hypothyroidism Priority: Secondary Status: Chronic Comments: Chronic. Continue home medications. Qualifiers: Hypothyroidism type: unspecified Qualified Code(s): E03.9 - Hypothyroidism , unspecified (7) DVT prophylaxis Priority: Secondary Status: Acute Comments: Heparin SQ - Discharge Medications Prescriptions: GuaiFENesin ER [Mucinex] 600 mg PO BID PRN #30 tbbp.12hr PRN Reason: Congestion Home Medications: Atenolol [Tenormin] 100 mg PO DAILY 10/29/15 [History] Cholecalciferol (Vitamin D3) [Vitamin D3] 2,000 unit PO DAILY 10/29/15 [History] Cranberry Fruit Extract [Cranberry] 250 mg PO BID 10/29/15 [History] Docusate Sodium [Colace] 100 mg PO BID PRN 10/29/15 [History] Donepezil [Aricept] 10 mg PO HS 10/29/15 [History] Folic Acid/Multivit-Min/Lutein [Adult Multivitamin Gummies] 1 tab PO DAILY 10/28 [History] Levothyroxine [Synthroid] 25 mcg PO DAILY 10/29/15 [History] Memantine HCl [Namenda Xr] 21 mg PO DAILY 10/29/15 [History] Ferrous Sulfate 325 mg PO BID 02/28/16 [History] Aspirin 81 mg PO DAILY tab.chew 03/02/16 [Rx] amLODIPine [Norvasc] 5 mg PO DAILY #30 tablet 07/07/16 [Rx] Anastrozole [Arimidex] 1 mg PO DAILY #90 tablet 08/28/16 [Rx] GuaiFENesin ER [Mucinex] 600 mg PO BID PRN #30 tbbp.12hr 12/08/16 [Rx] Multivit/Ca/Min/Fe/FA [Thera M Plus] 1 tab PO DAILY tablet 12/08/16 [Rx] Allergies/Adverse Reactions: Allergies No Known Allergies Allergy (Verified 11/27/16 16:07) Procedures/tests Complete & Pending: Procedures Performed prior 72 hours Category Date Time Status ECG 12 lead ECG [ECG] Routine Y 12/06/16 07:29 Completed EV echocardiogram Stat Y 12/06/16 10:35 Completed Date of admission: 12/06/16 09:01 Primary care physician: Denis Pulido MD Consults: 12/07/16 10:09 Consult to Occupational Therapy [CONS] Routine Comment: Evaluate, develop and implement POC Reason for Consult: eval and treat Consult to Physical Therapy [CONS] Routine Comment: Evaluate, develop and implement POC Reason for Consult: eval and treat Discharging clinician: Asia Nash Anticipated date of discharge: 12/08/16 - Patient Status Disposition: Home, Self-Care Condition: Fair Functional capacity at discharge: uses cane/walker Overall status at discharge: patient is back to baseline - Discharge Instructions Follow Up With: Karen Salomon [employer] [Advanced Practice Nurse] - 12/14/16 3:00 pm Additional Instructions: Please follow up with your PCP as scheduled for a follow up visit. Return to the ER as needed for any other problems or concerns or if your condition changes or worsens. Take Mucinex as needed only as needed for cough. Use the incentive spirometer 10x hourly while awake. Hospital course: Ms. Nice is a 86 year old female who lives at home with her daughter. She has a PMHx of HTN, Hypothyroidism, anemia, CKD, demenita. She presented to the ED from home with c/o L wrist pain. Xrays were negative. Patient denied wrist pain the last 2 days. She has normal range of motion and palpable pulses bilaterally. There is no bruising or deformity. Initial x-ray showed pulmonary congestion patient was admitted for congestive heart failure. Her troponins were negative 3 and her echocardiogram showed LVEF of 60% with mild concentric left ventricular hypertrophy. There is mild left ventricular diastolic dysfunction. Atypical septal motion is consistent with bundle branch block there is no evidence of pulmonary hypertension. Normal right ventricular structure and function. Daughter is very concerned about patient having a cough. The cough is dry and infrequent. Her lungs are clear anteriorly and posteriorly. Yesterday she did have some audible expiratory wheezing, I ordered albuterol nebulizer 1 and then when necessary. Wheezing has resolved today. Patient has no pedal or pretibial edema bilaterally. Daughter states that her legs look normal and are unchanged. I did do a repeat chest x-ray today that shows stable mild bibasilar atelectasis, left greater than right. Patient has chronic anemia and is on iron supplementation. This will be continued at home. Her hemoglobin today and throughout stay remains right around baseline. White count also remains near what is patient's baseline. Patient was stage III CKD. Creatinine is 1.35 and GFR is 37. Renal function is improved from admission. Daughter has declined help from social media content manager. She says that she cares for at home and does not need help. She did finally consent to PT and OT and the recommendation is that patient go home and continue current care. Patient is stable for discharge. - Time Spent with Patient Total time spent providing and/or coordinating discharge services: Less than 30 minutes - Constitutional Vitals: Temp Pulse Resp BP Pulse Ox 99.0 F 57 16 167/83 96 12/08/16 07:34 12/08/16 07:34 12/08/16 03:40 12/08/16 11:44 12/08/16 08:57 General appearance: Present: cooperative, A&O X 1, morbidly obese, no acute distress, obese. Absent: answers questions appropriately - Head Head exam: Present: normal inspection - Eye Eye exam: Present: normal appearance, PERRL, conjuntiva pink - ENT ENT exam: Present: mucous membranes moist, normal exam, normal external ear exam - Neck Neck exam general surgery: Present: normal inspection. Absent: lymphadenopathy , tenderness - Respiratory Respiratory exam: Present: CTAB. Absent: accessory muscle use, chest wall tenderness, decreased breath sounds, rales, rhonchi, wheezes - Cardiovascular Cardiovascular exam: Present: RRR, +S1, +S2. Absent: diastolic murmur, systolic murmur - GI/Abdominal GI/Abdominal exam: Present: distended, normal bowel sounds, soft. Absent: firm , hepatomegaly, tenderness - Extremities Exam Extremities exam: Present: normal capillary refill, normal inspection, warm, radial pulses palpable and symetrical. Absent: pedal edema, tenderness - Neurological Exam Neurological exam: Present: alert, oriented X3, no focal deficits, strengths equal and symetr throughout. Absent: facial droop, speech deficit
== END 2016-12-08 13:11 | disposition home or self-care (01) ==
LOC: EMEROO 07:14 → 3BNU 07:14
PROVIDERS: ADMIT Internal Medicine; ATTEND Registered Nurse

== ENCOUNTER 2017-07-15 02:33 | Inpatient (IN) ==
[2017-07-15] MEDS ORDERED: 0.9 % Sodium Chloride 1,000 ML IVC ONE ×2 (03:11→05:11)
--- NOTE | 2017-07-15 03:11 | Emergency Department Note ---
Disposition Clinical Impression: Dehydration, Unable to ambulate Diarrhea Qualifiers: Diarrhea type: unspecified type Qualified Code(s): R19.7 - Diarrhea, unspecified Disposition: Admitted As Inpatient Condition: Good Referrals: Karen Salomon CNP [Primary Care Provider] - Forms: ED Satisfaction Letter Time of Disposition: 06:02 Nausea/Vomiting/Diarrhea HPI - General Chief complaint: ED Nausea/Vomiting/Diarrhea Stated complaint: diarrhea Time Seen by Provider: 07/15/17 02:47 Source: patient, family, EMS Mode of arrival: EMS Limitations: no limitations Nursing Notes Reviewed: Yes Vital Signs Reviewed: Yes - History of Present Illness HPI Narrative: Patient is an 86-year-old female with past medical history of hypertension, dementia, thyroid disease. She presents today via EMS accompanied by her daughter. Daughter states that the patient has had diarrhea for the past 2-3 days. She was diagnosed with a UTI about a week ago and finished up a course of ciprofloxacin recently. Daughter states that the patient is near baseline for her dementia. However, she has had decreased food or water intake as of yesterday and has had profuse watery diarrhea. Daughter is concerned that she is very dehydrated. The patient herself is complaining of shortness of breath and generalized weakness. Daughter says that she is usually able to ambulate with a walker. However, patient can no longer even stand due to generalized weakness. Otherwise, she denies any chest pain, abdominal pain, fevers, blood in stool, dysuria, hematuria. - Related Data Home Medications Medication Instructions Recorded Confirmed Atenolol [Tenormin] 100 mg PO DAILY 10/29/15 07/15/17 Cholecalciferol (Vitamin D3) 2,000 unit PO DAILY 10/29/15 07/15/17 [Vitamin D3] Cranberry Fruit Extract [Cranberry] 250 mg PO BID 10/29/15 07/15/17 Docusate Sodium [Colace] 100 mg PO BID PRN 10/29/15 07/15/17 Donepezil [Aricept] 10 mg PO HS 10/29/15 07/15/17 Levothyroxine [Synthroid] 25 mcg PO DAILY 10/29/15 07/15/17 Memantine HCl [Namenda Xr] 21 mg PO DAILY 10/29/15 07/15/17 Ferrous Sulfate 325 mg PO BID 02/28/16 07/15/17 Previous Rx's Medication Instructions Recorded Aspirin 81 mg PO DAILY tab.chew 03/02/16 amLODIPine [Norvasc] 5 mg PO DAILY #30 tablet 07/07/16 Multivit/Ca/Min/Fe/FA [Thera M 1 tab PO DAILY tablet 12/08/16 Plus] Anastrozole [Arimidex] 1 mg PO DAILY #90 tablet 06/06/17 metroNIDAZOLE [Flagyl] 500 mg PO BID #10 tablet 06/27/17 Allergies Allergy/AdvReac Type Severity Reaction Status Date / Time No Known Allergies Allergy Verified 06/27/17 15:43 All systems ED: reviewed and negative except as stated. Constitutional: Denies: fever Cardiovascular: Denies: chest pain, palpitations Respiratory: Reports: dyspnea. Denies: cough Gastrointestinal: Reports: diarrhea. Denies: abdominal pain, nausea, vomiting, constipation, hematemesis, melena, hematochezia Genitourinary: Denies: urgency, dysuria Neurological: Denies: headache, weakness, numbness, paresthesias Endocrine: Reports: fatigue Past Medical History - Past Medical History Attestation: Yes The following information was validated with the patient. Source: patient Medical history: Reports: cancer, dementia, hypertension, thyroid disease Surgical history: Reports: non-contributory, orthopedic, other, other, vascular surgery Psychiatric history: Reports: no psych history MORTGAGE SPECIALIST history: Reports: non-contributory - Social History Smoking Status: Never smoker Smokeless Tobacco Status: No Alcohol use: Reports: none Drug use: Reports: none Physical Exam - General Limitations: other (Dementia) General appearance: alert, in no apparent distress - Head Head exam: atraumatic, normocephalic, normal inspection - Eye Eye exam: Present: normal appearance, PERRL, EOMI - ENT ENT exam: normal oropharynx, mucous membranes dry - Neck Neck exam: Present: normal inspection, full ROM, trachea midline - Chest Chest inspection: Present: normal inspection, symmetric chest wall rise - Respiratory Respiratory exam: Present: normal lung sounds bilaterally - Cardiovascular Cardiovascular exam: Present: regular rate, normal rhythm, normal heart sounds - Abdominal Exam Abdominal exam: Present: soft, Non-Tender. Absent: tenderness, distention, guarding, rebound, rigidity - Extremities Exam Extremities exam: Present: normal inspection, full ROM. Absent: tenderness, pedal edema - Neurological Exam Neurological exam: Present: alert, CN II-XII intact, other. Absent: motor sensory deficit - Psychiatric Psychiatric exam: Present: normal affect, normal mood - Skin Skin exam: Present: warm, dry, intact, normal color Course Course Narrative: Patient mildly hypertensive. Otherwise, the rest of the vitals within normal limits. Physical exam shows a pleasantly demented patient in no acute distress. Heart regular rate and rhythm, lungs clear to auscultation, abdomen soft and benign. She does have very dry mucous membranes on exam. Does appear to be generally weak and is lying on the bed with her eyes closed. I discussed obtaining basic blood work, EKG, chest x-ray, troponin, electrolytes and giving the patient fluids for dehydration. If the patient is still too weak to ambulate, will consider admission for dehydration. 06:00 no elevation in white blood cell count. Hemoglobin within normal limits. LFTs within normal limits. Creatinine near baseline for the patient. Urinalysis negative. Patient is clinically dehydrated, we will give an additional 1 L normal saline bolus. Patient is still unable to ambulate, has generalized weakness. This is not her baseline. She is usually able to ambulate with a walker. We will admit for dehydration, diarrhea, generalized weakness, inability to ambulate. Vital Signs Temperature 99.1 F 07/15/17 02:36 Pulse Rate 56 07/15/17 02:36 Respiratory Rate 18 07/15/17 02:36 Blood Pressure 139/126 07/15/17 02:36 O2 Sat by Pulse Oximetry 95 07/15/17 02:36 Temperature 99.1 F 07/15/17 02:36 Pulse Rate 60 07/15/17 05:32 Respiratory Rate 18 07/15/17 05:32 Blood Pressure 124/60 07/15/17 05:32 O2 Sat by Pulse Oximetry 92 07/15/17 05:32 Oxygen Delivery Oxygen Delivery Room Air Nausea/Vomiting/Diarrhea - MDM Narrative Medical decision making narrative: no elevation in white blood cell count. Hemoglobin within normal limits. LFTs within normal limits. Creatinine near baseline for the patient. Urinalysis negative. Patient is clinically dehydrated, we will give an additional 1 L normal saline bolus. Patient is still unable to ambulate, has generalized weakness. This is not her baseline. She is usually able to ambulate with a walker. We will admit for dehydration, diarrhea, generalized weakness, inability to ambulate - Medical Records Medical records reviewed: Yes I reviewed the patient's medical records. - Lab Data Lab results reviewed: Yes I reviewed the patient's lab results. Result diagrams: 07/15/17 03:50 07/15/17 04:55 Lab Results 07/15/17 07/15/17 07/15/17 Range/Units 03:50 03:50 03:50 WBC 7.6 (4.3-11.1) K/mcL RBC 3.47 L (3.82-4.97) M/mcL Hgb 11.5 (11.5-15.4) g/dL Hct 35.1 L (35.3-44.9) % MCV 101.2 H (83.0-100.0) fL MCH 33.1 (28.0-33.3) pg MCHC 32.8 (31.6-35.5) g/dL RDW 13.0 (11.5-14.5) % Plt Count 143 (140-400) K/mcL MPV 11.7 (9.4-12.4) fL Immature Gran % 0.0 (0-4) % Seg Neutrophils % 76.7 % Lymphocytes % 10.4 % Monocytes % 12.2 % Eosinophils % 0.4 % Basophils % 0.3 % Neutrophils # 5.8 (1.6-8.9) K/mcL Lymphocytes # 0.8 (0.6-4.6) K/mcL Monocytes # 0.9 (0.0-1.3) K/mcL Eosinophils # 0.0 (0.0-0.6) K/mcL Basophils # 0.0 (0.0-0.2) K/mcL Sodium (136-145) mEq/L Potassium (3.5-4.5) mEq/L Chloride (98-109) mEq/L Carbon Dioxide (19-29) mEq/L BUN (7-20) mg/dL Creatinine (0.57-1.11) mg/dL Est GFR ( Amer) (> 60) Est GFR (Non-Af Amer) (> 60) BUN/Creatinine Ratio (6-26) Glucose (70-99) mg/dL Calculated Osmolality (280-300) Lactic Acid 1.3 (0.5-2.2) mmol/L Calcium (8.6-10.8) mg/dL Total Bilirubin (0.2-1.2) mg/dL AST (5-34) Units/L ALT (0-55) Units/L Alkaline Phosphatase (38-126) Units/L Troponin I 0.02 (0-0.03) ng/mL B-Natriuretic Peptide (0-100) pg/mL Serum Total Protein (6.0-8.3) g/dL Albumin (3.5-5.0) g/dL Globulin (2.4-3.5) g/dL Albumin/Globulin Ratio (1.1-2.2) Lipase (8-78) Units/L Urine Color (Yellow) Urine Clarity (Clear) Urine pH (5.0-8.0) pH Units Ur Specific [place] (1.010-1.025) Urine Protein (Neg-Trace) mg/dL Urine Glucose (UA) (Normal) mg/dL Urine Ketones (Negative) mg/dL Urine Blood (Negative) Urine Nitrite (Negative) Urine Bilirubin (Negative) Urine Urobilinogen (Normal) mg/dL Ur Leukocyte Esterase (Negative) Urine Microscopic RBC (0-3) per hpf Urine Microscopic WBC (0-3) per hpf Ur Squamous Epith Cells (None-Few) per lpf Urine Bacteria (None-Few) per hpf Hyaline Casts (None-Few) per lpf Ur Culture Indicated? (NO) 07/15/17 07/15/17 07/15/17 Range/Units 03:50 04:20 04:55 WBC (4.3-11.1) K/mcL RBC (3.82-4.97) M/mcL Hgb (11.5-15.4) g/dL Hct (35.3-44.9) % MCV (83.0-100.0) fL MCH (28.0-33.3) pg MCHC (31.6-35.5) g/dL RDW (11.5-14.5) % Plt Count (140-400) K/mcL MPV (9.4-12.4) fL Immature Gran % (0-4) % Seg Neutrophils % % Lymphocytes % % Monocytes % % Eosinophils % % Basophils % % Neutrophils # (1.6-8.9) K/mcL Lymphocytes # (0.6-4.6) K/mcL Monocytes # (0.0-1.3) K/mcL Eosinophils # (0.0-0.6) K/mcL Basophils # (0.0-0.2) K/mcL Sodium 141 (136-145) mEq/L Potassium 3.7 (3.5-4.5) mEq/L Chloride 107 (98-109) mEq/L Carbon Dioxide 25 (19-29) mEq/L BUN 21 H (7-20) mg/dL Creatinine 1.37 H (0.57-1.11) mg/dL Est GFR ( Amer) 45 L (> 60) Est GFR (Non-Af Amer) 37 L (> 60) BUN/Creatinine Ratio 15 (6-26) Glucose 107 H (70-99) mg/dL Calculated Osmolality 295 (280-300) Lactic Acid (0.5-2.2) mmol/L Calcium 9.4 (8.6-10.8) mg/dL Total Bilirubin 0.8 (0.2-1.2) mg/dL AST 18 (5-34) Units/L ALT 18 (0-55) Units/L Alkaline Phosphatase 84 (38-126) Units/L Troponin I (0-0.03) ng/mL B-Natriuretic Peptide 474 H (0-100) pg/mL Serum Total Protein 6.1 (6.0-8.3) g/dL Albumin 3.0 L (3.5-5.0) g/dL Globulin 3.1 (2.4-3.5) g/dL Albumin/Globulin Ratio 1.0 L (1.1-2.2) Lipase < 10 (8-78) Units/L Urine Color Yellow (Yellow) Urine Clarity Clear (Clear) Urine pH 6.0 (5.0-8.0) pH Units Ur Specific [place] 1.021 (1.010-1.025) Urine Protein 30 H (Neg-Trace) mg/dL Urine Glucose (UA) Normal (Normal) mg/dL Urine Ketones Negative (Negative) mg/dL Urine Blood Trace H (Negative) Urine Nitrite Negative (Negative) Urine Bilirubin Negative (Negative) Urine Urobilinogen Normal (Normal) mg/dL Ur Leukocyte Esterase Trace H (Negative) Urine Microscopic RBC 0-3 (0-3) per hpf Urine Microscopic WBC 3-5 H (0-3) per hpf Ur Squamous Epith Cells Many H (None-Few) per lpf Urine Bacteria None Seen (None-Few) per hpf Hyaline Casts Few (None-Few) per lpf Ur Culture Indicated? NO (NO) 07/15/17 Range/Units 04:55 WBC (4.3-11.1) K/mcL RBC (3.82-4.97) M/mcL Hgb (11.5-15.4) g/dL Hct (35.3-44.9) % MCV (83.0-100.0) fL MCH (28.0-33.3) pg MCHC (31.6-35.5) g/dL RDW (11.5-14.5) % Plt Count (140-400) K/mcL MPV (9.4-12.4) fL Immature Gran % (0-4) % Seg Neutrophils % % Lymphocytes % % Monocytes % % Eosinophils % % Basophils % % Neutrophils # (1.6-8.9) K/mcL Lymphocytes # (0.6-4.6) K/mcL Monocytes # (0.0-1.3) K/mcL Eosinophils # (0.0-0.6) K/mcL Basophils # (0.0-0.2) K/mcL Sodium (136-145) mEq/L Potassium (3.5-4.5) mEq/L Chloride (98-109) mEq/L Carbon Dioxide (19-29) mEq/L BUN (7-20) mg/dL Creatinine (0.57-1.11) mg/dL Est GFR ( Amer) (> 60) Est GFR (Non-Af Amer) (> 60) BUN/Creatinine Ratio (6-26) Glucose (70-99) mg/dL Calculated Osmolality (280-300) Lactic Acid 1.2 (0.5-2.2) mmol/L Calcium (8.6-10.8) mg/dL Total Bilirubin (0.2-1.2) mg/dL AST (5-34) Units/L ALT (0-55) Units/L Alkaline Phosphatase (38-126) Units/L Troponin I (0-0.03) ng/mL B-Natriuretic Peptide (0-100) pg/mL Serum Total Protein (6.0-8.3) g/dL Albumin (3.5-5.0) g/dL Globulin (2.4-3.5) g/dL Albumin/Globulin Ratio (1.1-2.2) Lipase (8-78) Units/L Urine Color (Yellow) Urine Clarity (Clear) Urine pH (5.0-8.0) pH Units Ur Specific [place] (1.010-1.025) Urine Protein (Neg-Trace) mg/dL Urine Glucose (UA) (Normal) mg/dL Urine Ketones (Negative) mg/dL Urine Blood (Negative) Urine Nitrite (Negative) Urine Bilirubin (Negative) Urine Urobilinogen (Normal) mg/dL Ur Leukocyte Esterase (Negative) Urine Microscopic RBC (0-3) per hpf Urine Microscopic WBC (0-3) per hpf Ur Squamous Epith Cells (None-Few) per lpf Urine Bacteria (None-Few) per hpf Hyaline Casts (None-Few) per lpf Ur Culture Indicated? (NO) - Radiology Data Radiology results reviewed: Yes I reviewed the patient's radiology results. Chest X-Ray 07/15/17 03:10 IMPRESSION: No acute cardiopulmonary pathology. D/ / Prince Jung MD / Prince Jung MD Interpreting Provider: Prince Jung MD - EKG Data EKG attestation: Yes I reviewed and interpreted this EKG. EKG results narrative: 07/15/2017 at 03:18. Sinus bradycardia. Rate 53. MA 132. QRS 102. QTC 433. Left axis axis deviation. No acute ST elevation or depression. S.B.A.R. - S.B.A.R. Situation: Demographics, MOA Background: Presenting Complaint, Relevant PMH, Meds, & Allergies Assessment: Vital Signs, Course and respsone to treatment, Exam Concerns, Patient/Family Expectation, Pertinant Lab Results, Outstanding Labs Recommendation: Barrier(s) to disposition, Recommendation based on pending studies, treatments, or consults S.B.A.R. Report Given to: Dr. Ata Nolasco Repor Time: 06:02 Attestation Statement - Attestation Attestation: I examined this patient and my medical decision-making was reviewed with the Resident Physician. I agree with the documented findings, disposition and treatment plan as described except to the extent set forth below. Patient ED with diarrhea. Patient recently on Cipro for UTI. Daughter states more confused as well. On exam she is awake alert. With soft nontender abdomen. Plan. Septic workup. Patient appears dehydrated. IV hydration and likely admission.
[2017-07-15 04:00] LABS: Basophils % 0.3 %; Eosinophils % 0.4 %; Hematocrit 35.1 % (35.3-44.9); Hemoglobin 11.5 g/dL (11.5-15.4); Lymphocytes # 0.8 K/mcL (0.6-4.6); Lymphocytes % 10.4 %; Mean Corpuscular HGB Conc 32.8 g/dL (31.6-35.5); Mean Corpuscular Hemoglobin 33.1 pg (28.0-33.3); Mean Corpuscular Volume 101.2 fL (83.0-100.0); Mean Platelet Volume 11.7 fL (9.4-12.4); Monocytes # 0.9 K/mcL (0.0-1.3); Monocytes % 12.2 %; Neutrophils # 5.8 K/mcL (1.6-8.9); Platelet Count 143 K/mcL (140-400); Red Blood Count 3.47 M/mcL (3.82-4.97); Segmented Neutrophils % 76.7 %
[2017-07-15 04:38] LABS: Bilirubin,Urine Negative (Negative); Blood,Urine Trace (Negative); Clarity,Urine Clear (Clear); Color,Urine Yellow (Yellow); Glucose,Urine (UA) Normal (Normal); Ketones,Urine Negative (Negative); Leukocyte Esterase,Urine Trace (Negative); Nitrite,Urine Negative (Negative); Protein,Urine 30 mg/dL (Neg-Trace); Specific Gravity,Urine 1.021 (1.010-1.025); Urobilinogen,Urine Normal (Normal)
[2017-07-15 04:42] LABS: Bacteria,Urine None Seen per hpf (None-Few); RBC,Urine 0-3 per hpf (0-3); Squamous Epithelial Cell,Urine Many per lpf (None-Few)
[2017-07-15 04:59] LABS: Hyaline Casts,Urine Few per lpf (None-Few)
[2017-07-15 05:42] LABS: Alanine Aminotransferase 18 Units/L (0-55); Alkaline Phosphatase 84 Units/L (38-126); Aspartate Amino Transferase 18 Units/L (5-34); BUN/Creatinine Ratio 15 (6-26); Bilirubin,Total 0.8 mg/dL (0.2-1.2); Blood Urea Nitrogen 21 mg/dL (7-20); Calcium 9.4 mg/dL (8.6-10.8); Carbon Dioxide 25 mEq/L (19-29); Chloride 107 mEq/L (98-109); Globulin 3.1 g/dL (2.4-3.5); Glucose 107 mg/dL (70-99); Lipase < 10 Units/L (8-78); Osmolality,Calculated 295 (280-300); Potassium 3.7 mEq/L (3.5-4.5); Sodium 141 mEq/L (136-145); Total Protein 6.1 g/dL (6.0-8.3); eGFR For African Americans 45 (> 60); eGFR For Non-African Americans 37 (> 60)
[2017-07-15] MEDS ORDERED: Naloxone 0.4 MG/ML INJ IVP PRN (06:18)
[2017-07-15] MEDS ORDERED: Acetaminophen 325 MG TABLET PO PRN (06:18)
[2017-07-15] MEDS ORDERED: Ondansetron 4 MG/2 ML VIAL IVP PRN (06:18)
--- NOTE | 2017-07-15 06:30 | Internal Med History&Physical ---
Date of Encounter: 07/15/17 Time of Encounter: 06:00 Assessment and Plan (1) Diarrhea Current visit: Yes Status: Acute Will place the pt into [facility] for observation Since she did take Abx Cirpo recently concerned for C. Diff infection so will send stool sample for c. Diff and cx will start her on symptomatic and supportive care with IV fluids and IV anti emetics Talked to pt's daughter at beside and explained to her about current care Pt's daughter requested for DNR/ DNI code status Qualifiers: Diarrhea type: unspecified type Qualified Code(s): R19.7 - Diarrhea, unspecified (2) Dehydration Current visit: Yes Status: Acute started her on IV Fluids (3) Weakness generalized Current visit: No Status: Chronic PT / OT eval (4) Dementia Current visit: No Status: Acute resumed home meds Qualifiers: Dementia type: Alzheimer's disease Dementia behavioral disturbance: without behavioral disturbance Qualified Code(s): G30.0 - Alzheimer's disease with early onset; F02.80 - Dementia in other diseases classified elsewhere without behavioral disturbance; F02.80 - Dementia in other diseases classified elsewhere without behavioral disturbance; F02.80 - Dementia in other diseases classified elsewhere without behavioral disturbance (5) Hypertension Current visit: No Status: Chronic Resumed all home meds Qualifiers: Hypertension type: essential hypertension Qualified Code(s): I10 - Essential (primary) hypertension Internal Medicine - H&P: HPI Chief complaint: Diarrhea Admitted From: Emergency Dept Plans for Post Hospital Care: Home History of present illness: Ms. Nice is a 86 year old female with past medical history of hypertension, dementia and Hypothyroidism pt presented to ER today via EMS accompanied by her daughter.stating that patient has been having diarrhea for the past 2-3 days. She was diagnosed with a UTI about 1o days ago and finished up a course of ciprofloxacin abx on last Sunday. Daughter states that the patient is near baseline for her dementia. However, she has had decreased food or water intake as of yesterday and has had profuse watery diarrhea. Daughter is concerned that she is very dehydrated. As per daughter she is usually able to ambulate with a walker. However, patient can no longer even stand due to generalized weakness. Otherwise, she denies any chest pain, abdominal pain, fevers, blood in stool, dysuria, hematuria. Past Med Surg Social Fam HX - Past Medical History Medical history: cancer, dementia, hypertension, thyroid disease Psychiatric history: no psych history - Past Surgical History Surgical History: non-contributory, orthopedic, other, other, vascular surgery - Social History Smoking Status: Never smoker Smokeless Tobacco Status: No Alcohol use: none Drug use: none - Family History Mother Living Status: Hx Family Cardiac Disorders: Yes Internal Medicine - H&P: Meds Atenolol [Tenormin] 100 mg PO DAILY 10/29/15 [History] Cholecalciferol (Vitamin D3) [Vitamin D3] 2,000 unit PO DAILY 10/29/15 [History] Cranberry Fruit Extract [Cranberry] 250 mg PO BID 10/29/15 [History] Docusate Sodium [Colace] 100 mg PO BID PRN 10/29/15 [History] Donepezil [Aricept] 10 mg PO HS 10/29/15 [History] Levothyroxine [Synthroid] 25 mcg PO DAILY 10/29/15 [History] Memantine HCl [Namenda Xr] 21 mg PO DAILY 10/29/15 [History] Ferrous Sulfate 325 mg PO BID 02/28/16 [History] Aspirin 81 mg PO DAILY tab.chew 03/02/16 [Rx] amLODIPine [Norvasc] 5 mg PO DAILY #30 tablet 07/07/16 [Rx] Multivit/Ca/Min/Fe/FA [Thera M Plus] 1 tab PO DAILY tablet 12/08/16 [Rx] Anastrozole [Arimidex] 1 mg PO DAILY #90 tablet 06/06/17 [Rx] metroNIDAZOLE [Flagyl] 500 mg PO BID #10 tablet 06/27/17 [Rx] 3 Allergy/AdvReac Type Severity Reaction Status Date / Time No Known Allergies Allergy Verified 06/27/17 15:43 All Systems PM: A 10-system review of systems was performed and is negative for pertinent findings except as documented above in the HPI. Review of systems: All the systems are reviewed everything is benign except the systems and symptoms I mentioned in the history of present illness - Constitutional Vitals: Temp Pulse Resp BP Pulse Ox 99.1 F 60 18 125/64 95 07/15/17 02:36 07/15/17 06:06 07/15/17 06:06 07/15/17 06:06 07/15/17 06:06 General appearance: Present: A&O X 1, no acute distress - Head Head exam: Present: atraumatic, normal inspection - Neck Neck exam general surgery: Present: supple - Respiratory Respiratory exam: Absent: decreased breath sounds, rales, respiratory distress, rhonchi, wheezes - Cardiovascular Cardiovascular exam: Present: RRR, +S1, +S2. Absent: systolic murmur, tachycardia - GI/Abdominal GI/Abdominal exam: Present: normal bowel sounds, soft. Absent: rebound, rigid, tenderness - Extremities Exam Extremities exam: Absent: calf tenderness, pedal edema, tenderness - Neurological Exam Neurological exam: Present: alert Additional comments: Pleasantly demented - Psychiatric Additional comments: Pleasantly demented Internal Med - H&P Results - Labs CBC & Chem 7: 07/15/17 03:50 07/15/17 04:55
[2017-07-15] MEDS: Levothyroxine 25 MCG TABLET PO SCH (07:54)
[2017-07-15] MEDS: Anastrozole 1 MG TABLET PO SCH (07:55)
[2017-07-15] MEDS: amLODIPine 5 MG TABLET PO SCH (07:56)
[2017-07-15] MEDS: Aspirin 81 MG TAB.CHEW PO SCH (07:56)
[2017-07-15] MEDS: Multivit/Ca/Min/Fe/FA 1 TAB TABLET PO SCH (07:56)
[2017-07-15] MEDS: Cholecalciferol (D-3) 1,000 UNIT TABLET PO SCH (07:56)
[2017-07-15] MEDS: 0.9 % Sodium Chloride 1,000 ML IVC SCH ×2 (07:57→21:20)
[2017-07-15] MEDS: CRANBERRY FRUIT EXTRACT 250 MG PO SCH ×2 (08:11→21:21)
[2017-07-15] MEDS: Memantine Hcl [Namenda Xr] 21 MG PO SCH (08:11)
--- NOTE | 2017-07-15 15:41 | Event Note ---
Date of Encounter: 07/15/17 Time of Encounter: 14:50 Patient is an 86y/o female admitted for persistent diarrhea, dehydration, and generalized weakness. Pt seen and examined at bedside. Pt is resting in bed and is pleasantly confused. She is AAO x 0 and has underlying dementia No recurrent diarrhea has been reported since hospitalization continue supportive care, IV fluids, IV anti emetics as needed awaiting PT evaluation labs and vitals reviewed continue home meds
[2017-07-16 04:13] LABS: Basophils % 0.4 %; Eosinophils # 0.1 K/mcL (0.0-0.6); Eosinophils % 2.8 %; Hematocrit 31.3 % (35.3-44.9); Hemoglobin 10.2 g/dL (11.5-15.4); Immature Granulocytes % 0.2 % (0-4); Lymphocytes # 1.3 K/mcL (0.6-4.6); Lymphocytes % 27.1 %; Mean Corpuscular HGB Conc 32.6 g/dL (31.6-35.5); Mean Corpuscular Hemoglobin 33.6 pg (28.0-33.3); Mean Platelet Volume 11.2 fL (9.4-12.4); Monocytes # 0.6 K/mcL (0.0-1.3); Monocytes % 13.6 %; Neutrophils # 2.6 K/mcL (1.6-8.9); Platelet Count 133 K/mcL (140-400); Red Blood Count 3.04 M/mcL (3.82-4.97); Red Cell Distribution Width 13.2 % (11.5-14.5); Segmented Neutrophils % 55.9 %
[2017-07-16 04:22] LABS: Calcium 8.9 mg/dL (8.6-10.8); Magnesium 1.9 mg/dL (1.6-2.6); Phosphorous 2.9 mg/dL (2.3-4.7); Potassium 3.6 mEq/L (3.5-4.5)
[2017-07-16] MEDS: Levothyroxine 25 MCG TABLET PO SCH (06:53)
--- NOTE | 2017-07-16 10:42 | Electrocardiograph Report ---
[address] [place] [address] Test Date: 2017-07-15 Pat Name: Sary Nice Department: [id number] Room: 3A63 Gender: F Protective Clothing Issuer: SANJAY : [id number] Requested By: Jeremy Camp Order Number: [id number] Reading MD: Navneet Uribe MD Measurements Intervals [place] Rate: 53 P: 69 NC: 172 QRS: -31 QRSD: 102 T: 67 QT: 449 QTc: 433 Interpretive Statements SINUS BRADYCARDIA MARKED LEFT AXIS DEVIATION LEFT VENTRICULAR HYPERTROPHY BASELINE ARTIFACT Electronically Signed On 07-16-2017 10:40:55 EST by Navneet Uribe MD
[2017-07-16] MEDS: Anastrozole 1 MG TABLET PO SCH (11:08)
[2017-07-16] MEDS: Cholecalciferol (D-3) 1,000 UNIT TABLET PO SCH (11:09)
[2017-07-16] MEDS: Multivit/Ca/Min/Fe/FA 1 TAB TABLET PO SCH (11:09)
[2017-07-16] MEDS: Aspirin 81 MG TAB.CHEW PO SCH (11:09)
[2017-07-16] MEDS: amLODIPine 5 MG TABLET PO SCH (11:09)
[2017-07-16] MEDS: Memantine Hcl [Namenda Xr] 21 MG PO SCH (11:10)
[2017-07-16] MEDS: CRANBERRY FRUIT EXTRACT 250 MG PO SCH ×2 (11:10→21:28)
--- NOTE | 2017-07-16 16:03 | Internal Med Progress Note ---
Date of Encounter: 07/16/17 Time of Encounter: 15:30 - Assessment and plan (1) C. difficile diarrhea Current Visit: Yes Status: Acute Assessment and plan: stool studies positive for C-diff started Metronidazole 500mg IV q8h contact precautions (2) Essential (primary) hypertension Current Visit: No Status: Chronic Assessment and plan: BP within acceptable range continue home meds (3) Diarrhea Current Visit: Yes Status: Resolved Assessment and plan: diarrhea resolved, however stool positive for C-diff started on Flagyl Qualifiers: Diarrhea type: unspecified type Qualified Code(s): R19.7 - Diarrhea, unspecified (4) Weakness generalized Current Visit: No Status: Chronic Assessment and plan: PT while in house ECF upon discharge director of social work consultation requested for placement (5) Dementia Current Visit: No Status: Chronic Assessment and plan: continue home meds Qualifiers: Dementia type: vascular dementia Dementia behavioral disturbance: without behavioral disturbance Qualified Code(s): F01.50 - 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 disturbance (6) DVT prophylaxis Current Visit: No Status: Acute Assessment and plan: Heparin SQ (7) CKD (chronic kidney disease), stage III Current Visit: No Status: Chronic Assessment and plan: renal function at baseline will continue to monitor - Subjective Interval history: Patient seen and examined with daughter present at bedside. Pt remains at her baseline mental status, pleasantly confused, but weak. PT evaluation recommended ECF, daughter in agreement for placement at this time. Pt's daughter states that the patient requires assistance with feeding, the nursing staff informed Stool studies positive for C-diff, started metronidazole 500mg IV q8h - Constitutional Vitals: Temp Pulse Resp BP Pulse Ox 99.1 F 55 17 146/64 96 07/16/17 14:57 07/16/17 14:57 07/16/17 14:57 07/16/17 14:57 07/16/17 14:57 General appearance: Present: A&O X 0, no acute distress, obese - Head Head exam: Present: atraumatic, normocephalic - Eye Eye exam: Present: conjuntiva pink, sclera anicteric - Respiratory Respiratory exam: Present: CTAB. Absent: accessory muscle use, respiratory distress, wheezes - Cardiovascular Cardiovascular exam: Present: RRR, +S1, +S2. Absent: diastolic murmur, gallop, rubs, systolic murmur - GI/Abdominal GI/Abdominal exam: Present: normal bowel sounds, soft, no peritoneal signs. Absent: distended, tenderness - Extremities Exam Extremities exam: Present: warm, radial pulses palpable and symmetrical. Absent : calf tenderness - Neurological Exam Neurological exam: Present: alert Internal Medicine: Result - Labs CBC & Chem 7: 07/16/17 03:32 07/16/17 03:32 Labs: Short CBC 07/16/17 Range/Units 03:32 WBC 4.7 (4.3-11.1) K/mcL Hgb 10.2 L (11.5-15.4) g/dL Hct 31.3 L (35.3-44.9) % Plt Count 133 L (140-400) K/mcL Neutrophils # 2.6 (1.6-8.9) K/mcL BMP 07/16/17 03:32 Sodium 141 Potassium 3.6 Chloride 110 H Carbon Dioxide 22 BUN 19 Creatinine 1.12 H Glucose 91 Calcium 8.9 Consult Discharge Plan - Plan Referrals: Karen Salomon, [employer] [Primary Care Provider] -
[2017-07-16] MEDS: MetroNIDAZOLE 500 MG/100 ML 500 MG/100 ML BAG IVPB SCH (17:06)
[2017-07-16] MEDS: *HR* Heparin 5,000 UNIT/ML VIAL SQ SCH (17:08)
[2017-07-17] MEDS: MetroNIDAZOLE 500 MG/100 ML 500 MG/100 ML BAG IVPB SCH ×4 (00:29→23:25)
[2017-07-17] MEDS: Levothyroxine 25 MCG TABLET PO SCH (06:32)
[2017-07-17] MEDS: *HR* Heparin 5,000 UNIT/ML VIAL SQ SCH ×2 (06:32→17:26)
[2017-07-17 07:25] LABS: Basophils % 0.4 %; Eosinophils # 0.2 K/mcL (0.0-0.6); Eosinophils % 3.5 %; Hematocrit 33.5 % (35.3-44.9); Hemoglobin 11.1 g/dL (11.5-15.4); Immature Granulocytes % 0.4 % (0-4); Lymphocytes # 1.1 K/mcL (0.6-4.6); Lymphocytes % 24.6 %; Mean Corpuscular HGB Conc 33.1 g/dL (31.6-35.5); Mean Corpuscular Hemoglobin 33.7 pg (28.0-33.3); Mean Corpuscular Volume 101.8 fL (83.0-100.0); Monocytes # 0.6 K/mcL (0.0-1.3); Monocytes % 12.1 %; Neutrophils # 2.7 K/mcL (1.6-8.9); Platelet Count 141 K/mcL (140-400); Red Blood Count 3.29 M/mcL (3.82-4.97); Red Cell Distribution Width 12.9 % (11.5-14.5)
[2017-07-17 07:28] LABS: Calcium 9.1 mg/dL (8.6-10.8); Magnesium 1.8 mg/dL (1.6-2.6); Phosphorous 2.9 mg/dL (2.3-4.7); Potassium 3.6 mEq/L (3.5-4.5)
[2017-07-17] MEDS: Aspirin 81 MG TAB.CHEW PO SCH (08:49)
[2017-07-17] MEDS: amLODIPine 5 MG TABLET PO SCH (08:49)
[2017-07-17] MEDS: Multivit/Ca/Min/Fe/FA 1 TAB TABLET PO SCH (08:49)
[2017-07-17] MEDS: Cholecalciferol (D-3) 1,000 UNIT TABLET PO SCH (08:49)
[2017-07-17] MEDS: Anastrozole 1 MG TABLET PO SCH (08:50)
[2017-07-17] MEDS: MEMANTINE HCL 21 MG PO SCH (08:50)
[2017-07-17] MEDS: CRANBERRY FRUIT EXTRACT 250 MG PO SCH ×2 (08:51→20:29)
--- NOTE | 2017-07-17 14:54 | Internal Med Progress Note ---
Date of Encounter: 07/17/17 Time of Encounter: 12:10 (.) - Assessment and plan (1) C. difficile diarrhea Current Visit: Yes Status: Acute Assessment and plan: stool studies positive for C-diff continue Metronidazole 500mg IV q8h (Day 2, start date: 07/16/17) contact precautions (2) Essential (primary) hypertension Current Visit: No Status: Chronic Assessment and plan: BP within acceptable range continue home meds (3) Diarrhea Current Visit: Yes Status: Resolved Assessment and plan: diarrhea resolved, however stool positive for C-diff continue Flagyl Qualifiers: Diarrhea type: unspecified type Qualified Code(s): R19.7 - Diarrhea, unspecified (4) Weakness generalized Current Visit: No Status: Chronic Assessment and plan: PT while in house ECF upon discharge social work therapist consultation requested for placement (5) Dementia Current Visit: No Status: Chronic Assessment and plan: continue home meds Qualifiers: Dementia type: vascular dementia Dementia behavioral disturbance: without behavioral disturbance Qualified Code(s): F01.50 - 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 disturbance (6) DVT prophylaxis Current Visit: No Status: Acute Assessment and plan: Heparin SQ (7) CKD (chronic kidney disease), stage III Current Visit: No Status: Chronic Assessment and plan: renal function at baseline will continue to monitor - Subjective Interval history: Patient seen and examined with daughter present at bedside. Pt remains at her baseline mental status, pleasantly confused, but weak. PT evaluation recommended ECF, daughter in agreement for placement at this time. Pt tolerating PO Intake well. D/C pending ECF placement - Constitutional Vitals: Temp Pulse Resp BP Pulse Ox 97.6 F 52 18 138/94 96 07/17/17 10:57 07/17/17 10:57 07/17/17 10:57 07/17/17 10:57 07/17/17 10:57 General appearance: Present: A&O X 0, no acute distress, obese - Head Head exam: Present: atraumatic, normocephalic - Respiratory Respiratory exam: Present: CTAB. Absent: respiratory distress, wheezes - Cardiovascular Cardiovascular exam: Present: RRR, +S1, +S2. Absent: diastolic murmur, gallop, rubs, systolic murmur - GI/Abdominal GI/Abdominal exam: Present: normal bowel sounds, soft, no peritoneal signs. Absent: distended, tenderness - Extremities Exam Extremities exam: Present: warm, radial pulses palpable and symmetrical. Absent : calf tenderness, tenderness - Neurological Exam Neurological exam: Present: alert Internal Medicine: Result - Labs CBC & Chem 7: 07/17/17 07:10 07/17/17 07:10 Labs: Short CBC 07/17/17 Range/Units 07:10 WBC 4.6 (4.3-11.1) K/mcL Hgb 11.1 L (11.5-15.4) g/dL Hct 33.5 L (35.3-44.9) % Plt Count 141 (140-400) K/mcL Neutrophils # 2.7 (1.6-8.9) K/mcL BMP 07/17/17 07:10 Sodium 140 Potassium 3.6 Chloride 108 Carbon Dioxide 22 BUN 14 Creatinine 1.09 Glucose 102 H Calcium 9.1 Consult Discharge Plan - Plan Referrals: Karen Salomon, BALANCE SHEET ANALYST [Primary Care Provider] -
[2017-07-17] MEDS ORDERED: Ipratropium/Albuterol Neb 3 ML IH PRN (17:56)
[2017-07-18] MEDS: Levothyroxine 25 MCG TABLET PO SCH (05:12)
[2017-07-18] MEDS: *HR* Heparin 5,000 UNIT/ML VIAL SQ SCH ×2 (05:12→17:35)
[2017-07-18 06:31] LABS: Basophils % 0.4 %; Eosinophils # 0.1 K/mcL (0.0-0.6); Eosinophils % 1.6 %; Hematocrit 32.1 % (35.3-44.9); Hemoglobin 10.5 g/dL (11.5-15.4); Immature Granulocytes % 0.4 % (0-4); Lymphocytes # 0.9 K/mcL (0.6-4.6); Lymphocytes % 17.9 %; Mean Corpuscular HGB Conc 32.7 g/dL (31.6-35.5); Mean Corpuscular Hemoglobin 32.8 pg (28.0-33.3); Mean Corpuscular Volume 100.3 fL (83.0-100.0); Mean Platelet Volume 11.1 fL (9.4-12.4); Monocytes # 0.7 K/mcL (0.0-1.3); Monocytes % 13.3 %; Neutrophils # 3.4 K/mcL (1.6-8.9); Nucleated Red Blood Cells 0.4 /100 WBC (0); Platelet Count 145 K/mcL (140-400); Red Cell Distribution Width 12.8 % (11.5-14.5); Segmented Neutrophils % 66.4 %
[2017-07-18 06:44] LABS: Calcium 8.7 mg/dL (8.6-10.3); Phosphorous 3.5 mg/dL (2.7-4.5); Potassium 3.4 mEq/L (3.5-5.1)
[2017-07-18] MEDS: MetroNIDAZOLE 500 MG/100 ML 500 MG/100 ML BAG IVPB SCH ×2 (07:36→15:43)
[2017-07-18] MEDS: Aspirin 81 MG TAB.CHEW PO SCH (07:38)
[2017-07-18] MEDS: Anastrozole 1 MG TABLET PO SCH (07:38)
[2017-07-18] MEDS: MEMANTINE HCL 21 MG PO SCH (07:39)
[2017-07-18] MEDS: amLODIPine 5 MG TABLET PO SCH (07:39)
[2017-07-18] MEDS: CRANBERRY FRUIT EXTRACT 250 MG PO SCH ×2 (07:40→22:15)
[2017-07-18] MEDS: Multivit/Ca/Min/Fe/FA 1 TAB TABLET PO SCH (07:40)
[2017-07-18] MEDS: Cholecalciferol (D-3) 1,000 UNIT TABLET PO SCH (07:40)
[2017-07-18] MEDS ORDERED: Acetaminophen 325 MG TABLET PO PRN (13:25)
--- NOTE | 2017-07-18 15:35 | Internal Med Progress Note ---
Date of Encounter: 07/18/17 Time of Encounter: 13:55 - Assessment and plan (1) Pneumonia Current Visit: Yes Status: Acute Assessment and plan: Due to low grade fever, change in mental status, and clinical exam, STAT CXR was obtained CXR consistent with b/l lower lobe infiltrates blood cultures sent started IV Zosyn will closely monitor and de-escalate therapy as per clinical response and culture results Qualifiers: Pneumonia type: due to unspecified organism Laterality: bilateral Lung location: lower lobe of lung Qualified Code(s): J18.9 - Pneumonia, unspecified organism (2) C. difficile diarrhea Current Visit: Yes Status: Acute Assessment and plan: stool studies positive for C-diff continue Metronidazole 500mg IV q8h (Day 3, start date: 07/16/17) contact precautions (3) Essential (primary) hypertension Current Visit: No Status: Chronic Assessment and plan: BP within acceptable range continue home meds (4) Diarrhea Current Visit: Yes Status: Resolved Assessment and plan: diarrhea resolved, however stool positive for C-diff continue Flagyl Qualifiers: Diarrhea type: unspecified type Qualified Code(s): R19.7 - Diarrhea, unspecified (5) Weakness generalized Current Visit: No Status: Chronic Assessment and plan: as per daughter, pt currently close to baseline, physical therapy recommending return to prior living situation with home health daughter refusing home health services (6) Dementia Current Visit: No Status: Chronic Assessment and plan: continue home meds Qualifiers: Dementia type: vascular dementia Dementia behavioral disturbance: without behavioral disturbance Qualified Code(s): F01.50 - 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 disturbance (7) DVT prophylaxis Current Visit: No Status: Acute Assessment and plan: Heparin SQ (8) CKD (chronic kidney disease), stage III Current Visit: No Status: Chronic Assessment and plan: renal function at baseline will continue to monitor - Subjective Interval history: Patient seen and examined with daughter present at bedside. Pt reported to be more somnolent today, as per daughter, she has been refusing meals. Noted to be febrile, with Tmax of 100.2 STAT CXR was done, which reported lower lobe infiltrates bilaterally Pt stated on empiric IV abx Pt did not get approved for [facility] and family refusing home health services. - Constitutional Vitals: Temp Pulse Resp BP Pulse Ox 99.2 F 56 14 154/83 93 07/18/17 15:17 07/18/17 15:17 07/18/17 15:17 07/18/17 15:17 07/18/17 15:17 General appearance: Present: A&O X 0 (somnolent but easily arousable), no acute distress, obese - Head Head exam: Present: atraumatic, normocephalic - Eye Eye exam: Present: conjuntiva pink, sclera anicteric - Respiratory Respiratory exam: Present: decreased breath sounds. Absent: respiratory distress, wheezes - Cardiovascular Cardiovascular exam: Present: RRR, +S1, +S2. Absent: diastolic murmur, gallop, rubs, systolic murmur - GI/Abdominal GI/Abdominal exam: Present: normal bowel sounds, soft, no peritoneal signs. Absent: distended, tenderness - Extremities Exam Extremities exam: Present: warm, radial pulses palpable and symmetrical. Absent : calf tenderness Internal Medicine: Result - Labs CBC & Chem 7: 07/18/17 06:17 07/18/17 06:17 Labs: Short CBC 07/18/17 Range/Units 06:17 WBC 5.0 (4.3-11.1) K/mcL Hgb 10.5 L (11.5-15.4) g/dL Hct 32.1 L (35.3-44.9) % Plt Count 145 (140-400) K/mcL Neutrophils # 3.4 (1.6-8.9) K/mcL BMP 07/18/17 06:17 Sodium 139 Potassium 3.4 L Chloride 108 H Carbon Dioxide 24 BUN 16 Creatinine 1.14 Glucose 102 Calcium 8.7 - Impressions Impressions Chest X-Ray 07/18/17 13:24 IMPRESSION: Bilateral lower lobe infiltrates and small left pleural effusion. D/ / 07/18/2017 14:19:16 Nicola Kinney MD / [place] Interpreting Provider: Nicola Kinney MD Consult Discharge Plan - Plan Referrals: Karen Salomon CNP [Primary Care Provider] -
[2017-07-18] MEDS: Piperacillin/Tazobactam 3.375 GM/200 ML BAG IVPB SCH (16:47)
[2017-07-19] MEDS: MetroNIDAZOLE 500 MG/100 ML 500 MG/100 ML BAG IVPB SCH ×3 (01:34→16:17)
[2017-07-19] MEDS: Piperacillin/Tazobactam 3.375 GM/200 ML BAG IVPB SCH ×3 (01:34→16:18)
[2017-07-19 06:05] LABS: Basophils % 0.2 %; Eosinophils # 0.2 K/mcL (0.0-0.6); Eosinophils % 2.7 %; Hematocrit 34.1 % (35.3-44.9); Hemoglobin 11.5 g/dL (11.5-15.4); Immature Granulocytes % 0.4 % (0-4); Lymphocytes # 1.1 K/mcL (0.6-4.6); Lymphocytes % 18.7 %; Mean Corpuscular HGB Conc 33.7 g/dL (31.6-35.5); Mean Corpuscular Hemoglobin 33.9 pg (28.0-33.3); Mean Corpuscular Volume 100.6 fL (83.0-100.0); Mean Platelet Volume 11.5 fL (9.4-12.4); Monocytes # 0.7 K/mcL (0.0-1.3); Monocytes % 12.2 %; Neutrophils # 3.7 K/mcL (1.6-8.9); Platelet Count 144 K/mcL (140-400); Red Blood Count 3.39 M/mcL (3.82-4.97); Red Cell Distribution Width 12.8 % (11.5-14.5); Segmented Neutrophils % 65.8 %
[2017-07-19] MEDS: *HR* Heparin 5,000 UNIT/ML VIAL SQ SCH ×2 (06:30→18:22)
[2017-07-19] MEDS: Levothyroxine 25 MCG TABLET PO SCH (06:30)
[2017-07-19] MEDS: Cholecalciferol (D-3) 1,000 UNIT TABLET PO SCH (09:06)
[2017-07-19] MEDS: amLODIPine 5 MG TABLET PO SCH (09:06)
[2017-07-19] MEDS: Multivit/Ca/Min/Fe/FA 1 TAB TABLET PO SCH (09:07)
[2017-07-19] MEDS: Anastrozole 1 MG TABLET PO SCH (09:07)
[2017-07-19] MEDS: Aspirin 81 MG TAB.CHEW PO SCH (09:08)
[2017-07-19] MEDS: MEMANTINE HCL 21 MG PO SCH (09:09)
[2017-07-19] MEDS: CRANBERRY FRUIT EXTRACT 250 MG PO SCH ×2 (09:10→21:26)
[2017-07-19 09:17] LABS: Calcium 8.5 mg/dL (8.6-10.3); Magnesium 2.1 mg/dL (1.6-2.6); Phosphorous 2.8 mg/dL (2.7-4.5); Potassium 3.5 mEq/L (3.5-5.1)
--- NOTE | 2017-07-19 09:27 | Internal Med Progress Note ---
Date of Encounter: 07/19/17 Time of Encounter: 08:55 - Assessment and plan (1) Pneumonia Current Visit: Yes Status: Acute Assessment and plan: CXR consistent with b/l lower lobe infiltrates blood cultures sent continue IV Zosyn (day 2) will closely monitor and de-escalate therapy as per clinical response and culture results Qualifiers: Pneumonia type: due to unspecified organism Laterality: bilateral Lung location: lower lobe of lung Qualified Code(s): J18.9 - Pneumonia, unspecified organism (2) C. difficile diarrhea Current Visit: Yes Status: Acute Assessment and plan: stool studies positive for C-diff continue Metronidazole 500mg IV q8h (Day 4, start date: 07/16/17) contact precautions (3) Essential (primary) hypertension Current Visit: No Status: Chronic Assessment and plan: Noted to remain hypertensive increased amlodipine dose to 10mg PO qd will closely monitor BP (4) Diarrhea Current Visit: Yes Status: Resolved Assessment and plan: diarrhea resolved, however stool positive for C-diff continue Flagyl Qualifiers: Diarrhea type: unspecified type Qualified Code(s): R19.7 - Diarrhea, unspecified (5) Weakness generalized Current Visit: No Status: Chronic Assessment and plan: as per daughter, pt currently close to baseline, physical therapy recommending return to prior living situation with home health daughter refusing home health services (6) Dementia Current Visit: No Status: Chronic Assessment and plan: continue home meds Qualifiers: Dementia type: vascular dementia Dementia behavioral disturbance: without behavioral disturbance Qualified Code(s): F01.50 - 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 disturbance (7) DVT prophylaxis Current Visit: No Status: Acute Assessment and plan: Heparin SQ (8) CKD (chronic kidney disease), stage III Current Visit: No Status: Chronic Assessment and plan: renal function at baseline will continue to monitor - Subjective Interval history: Patient seen and examined at bedside. Pt more awake than previous day Finished her breakfast this morning will continue empiric IV abx tentative d/c in am if continues to clinically improve Pt did not get approved for [facility] and family refusing home health services. - Constitutional Vitals: Temp Pulse Resp BP Pulse Ox 98.8 F 59 18 163/89 95 07/19/17 07:32 07/19/17 07:32 07/19/17 07:32 07/19/17 07:32 07/19/17 07:32 General appearance: Present: A&O X 0 (pleasantly confused ), no acute distress, obese - Head Head exam: Present: atraumatic, normocephalic - Eye Eye exam: Present: conjuntiva pink, sclera anicteric - Respiratory Respiratory exam: Absent: respiratory distress, wheezes (equal air entry bilaterally) - Cardiovascular Cardiovascular exam: Present: RRR, +S1, +S2. Absent: diastolic murmur, gallop, rubs, systolic murmur - GI/Abdominal GI/Abdominal exam: Present: distended, normal bowel sounds, tenderness - Extremities Exam Extremities exam: Present: calf tenderness, warm, radial pulses palpable and symmetrical - Neurological Exam Neurological exam: Present: alert Internal Medicine: Result - Labs CBC & Chem 7: 07/19/17 05:34 07/19/17 06:29 Labs: Short CBC 07/19/17 Range/Units 05:34 WBC 5.7 (4.3-11.1) K/mcL Hgb 11.5 (11.5-15.4) g/dL Hct 34.1 L (35.3-44.9) % Plt Count 144 (140-400) K/mcL Neutrophils # 3.7 (1.6-8.9) K/mcL BMP 07/19/17 06:29 Sodium 139 Potassium 3.5 Chloride 108 H Carbon Dioxide 24 BUN 18 Creatinine 1.16 Glucose 95 Calcium 8.5 L - Impressions Impressions Chest X-Ray 07/18/17 13:24 IMPRESSION: Bilateral lower lobe infiltrates and small left pleural effusion. D/ / 07/18/2017 14:19:16 Nicola Kinney MD / [place] Interpreting Provider: Nicola Kinney MD Consult Discharge Plan - Plan Referrals: Karen Salomon CNP [Primary Care Provider] -
[2017-07-20] MEDS: MetroNIDAZOLE 500 MG/100 ML 500 MG/100 ML BAG IVPB SCH ×2 (01:09→09:03)
[2017-07-20] MEDS: Piperacillin/Tazobactam 3.375 GM/200 ML BAG IVPB SCH (01:10)
[2017-07-20 05:47] LABS: Calcium 8.8 mg/dL (8.6-10.3); Magnesium 2.3 mg/dL (1.6-2.6); Phosphorous 3.4 mg/dL (2.7-4.5); Potassium 3.5 mEq/L (3.5-5.1)
[2017-07-20 05:57] LABS: Basophils % 0.4 %; Eosinophils # 0.2 K/mcL (0.0-0.6); Eosinophils % 3.1 %; Hematocrit 34.2 % (35.3-44.9); Hemoglobin 11.1 g/dL (11.5-15.4); Immature Granulocytes % 0.2 % (0-4); Lymphocytes # 1.3 K/mcL (0.6-4.6); Lymphocytes % 23.3 %; Mean Corpuscular HGB Conc 32.5 g/dL (31.6-35.5); Mean Corpuscular Hemoglobin 32.6 pg (28.0-33.3); Mean Corpuscular Volume 100.3 fL (83.0-100.0); Mean Platelet Volume 11.2 fL (9.4-12.4); Monocytes # 0.7 K/mcL (0.0-1.3); Monocytes % 11.9 %; Neutrophils # 3.3 K/mcL (1.6-8.9); Platelet Count 165 K/mcL (140-400); Red Blood Count 3.41 M/mcL (3.82-4.97); Red Cell Distribution Width 12.9 % (11.5-14.5); Segmented Neutrophils % 61.1 %
[2017-07-20] MEDS: *HR* Heparin 5,000 UNIT/ML VIAL SQ SCH (06:50)
[2017-07-20] MEDS: Levothyroxine 25 MCG TABLET PO SCH (06:50)
[2017-07-20] MEDS: Multivit/Ca/Min/Fe/FA 1 TAB TABLET PO SCH (09:04)
[2017-07-20] MEDS: amLODIPine 5 MG TABLET PO SCH (09:04)
[2017-07-20] MEDS: Cholecalciferol (D-3) 1,000 UNIT TABLET PO SCH (09:04)
[2017-07-20] MEDS: Anastrozole 1 MG TABLET PO SCH (09:04)
[2017-07-20] MEDS: Aspirin 81 MG TAB.CHEW PO SCH (09:04)
[2017-07-20] MEDS: MEMANTINE HCL 21 MG PO SCH (09:06)
[2017-07-20] MEDS: CRANBERRY FRUIT EXTRACT 250 MG PO SCH (09:07)
[2017-07-20 10:49] VITALS: BP 136/77
--- NOTE | 2017-07-20 13:56 | Discharge Summary ---
Date of Encounter: 07/20/17 Time of Encounter: 13:53 - Discharge Diagnosis (1) Pneumonia Priority: Secondary Status: Acute Qualifiers: Pneumonia type: due to unspecified organism Laterality: bilateral Lung location: lower lobe of lung Qualified Code(s): J18.9 - Pneumonia, unspecified organism (2) C. difficile diarrhea Priority: Primary Status: Acute (3) Essential (primary) hypertension Priority: Secondary Status: Chronic (4) Diarrhea Priority: Secondary Status: Resolved Qualifiers: Diarrhea type: unspecified type Qualified Code(s): R19.7 - Diarrhea, unspecified (5) Weakness generalized Priority: Secondary Status: Chronic (6) Dementia Priority: Secondary Status: Chronic Qualifiers: Dementia type: vascular dementia Dementia behavioral disturbance: without behavioral disturbance Qualified Code(s): F01.50 - 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 disturbance (7) DVT prophylaxis Priority: Secondary Status: Acute (8) CKD (chronic kidney disease), stage III Priority: Secondary Status: Chronic - Discharge Medications Prescriptions: amLODIPine [Norvasc] 10 mg PO DAILY #30 tablet levoFLOXacin [Levaquin] 500 mg PO DAILY #5 tablet metroNIDAZOLE [Flagyl] 500 mg PO TID #16 tablet Home Medications: Atenolol [Tenormin] 100 mg PO DAILY 10/29/15 [History] Cholecalciferol (Vitamin D3) [Vitamin D3] 2,000 unit PO DAILY 10/29/15 [History] Cranberry Fruit Extract [Cranberry] 250 mg PO BID 10/29/15 [History] Docusate Sodium [Colace] 100 mg PO BID PRN 10/29/15 [History] Donepezil [Aricept] 10 mg PO HS 10/29/15 [History] Levothyroxine [Synthroid] 25 mcg PO DAILY 10/29/15 [History] Memantine HCl [Namenda Xr] 21 mg PO DAILY 10/29/15 [History] Ferrous Sulfate 325 mg PO BID 02/28/16 [History] Aspirin 81 mg PO DAILY tab.chew 03/02/16 [Rx] Multivit/Ca/Min/Fe/FA [Thera M Plus] 1 tab PO DAILY tablet 12/08/16 [Rx] Anastrozole [Arimidex] 1 mg PO DAILY #90 tablet 06/06/17 [Rx] amLODIPine [Norvasc] 10 mg PO DAILY #30 tablet 07/20/17 [Rx] levoFLOXacin [Levaquin] 500 mg PO DAILY #5 tablet 07/20/17 [Rx] metroNIDAZOLE [Flagyl] 500 mg PO TID #16 tablet 07/20/17 [Rx] Allergies/Adverse Reactions: 3 Allergy/AdvReac Type Severity Reaction Status Date / Time No Known Allergies Allergy Verified 06/27/17 15:43 Date of admission: 07/16/17 18:43 Primary care physician: Karen Salomon CNP Discharging clinician: Naye Abreu Anticipated date of discharge: 07/20/17 - Patient Status Disposition: Home, Self-Care Condition: Good Functional capacity at discharge: uses cane/walker Overall status at discharge: patient is back to baseline - Discharge Instructions Follow Up With: Karen Salomon CNP [Primary Care Provider] - Additional Instructions: Please follow up with your primary care physician within five days after your discharge from the hospital. Please continue oral antibiotics as prescribed. Your home dose of Amlodipine has been increased to 10mg once a day. Closely monitor your blood pressure at home. Resume all other home medications as prescribed by your primary care physician. - Diet and Activity Activity: increase activity as tolerated Diet: low fat, low cholesterol, low salt diet Hospital course: Ms. Nice is a 86 year old female with PMH of hypertension, advance dementia, hypothyroidism admitted for nausea, vomiting, diarrhea and was found to have Cdiff. She was started on IV abx and supportive care. She improved initially however her hospital course was complicated by b/l Lower lobe pneumonia for which she was started on IV abx. She responded well to therapy and is currently back to her baseline status. Diarrhea resolved, she is tolerating PO intake well. Saturating well on room air. She was evaluated by physical therapy and home health was recommended. Pt's daughter (FUNMILAYO) refused home health services. She reported of living with her mother and taking care of her daily ADLs. Pt is stable for discharge. She will be discharged to home today with follow up with primary care physician. - Time Spent with Patient Total time spent providing and/or coordinating discharge services: Less than 30 minutes - Constitutional Vitals: Temp Pulse Resp BP Pulse Ox 98.4 F 64 18 136/77 95 07/20/17 10:43 07/20/17 10:43 07/20/17 10:43 07/20/17 10:43 07/20/17 10:43 General appearance: Present: A&O X 0 (pleasantly confused ), morbidly obese, no acute distress - Head Head exam: Present: atraumatic, normocephalic - Eye Eye exam: Present: conjuntiva pink, sclera anicteric - Respiratory Respiratory exam: Present: CTAB. Absent: accessory muscle use, rales, rhonchi, wheezes - Cardiovascular Cardiovascular exam: Present: RRR, +S1, +S2. Absent: diastolic murmur, gallop, rubs, systolic murmur - GI/Abdominal GI/Abdominal exam: Present: normal bowel sounds, soft, no peritoneal signs. Absent: distended, tenderness - Extremities Exam Extremities exam: Present: warm, radial pulses palpable and symmetrical. Absent : calf tenderness - Neurological Exam Neurological exam: Present: alert
[2017-07-20] MEDS ORDERED: Piperacillin/Tazobactam 3.375 GM/200 ML BAG IVPB SCH (16:00)
== END 2017-07-20 15:50 | disposition home or self-care (01) | DRG 371 ==
LOC: 3ANU 02:33 → EMEROO 02:33 → SUATTDRO 06:09 → 3ANU 06:26
PROVIDERS: ADMIT Family Medicine; ATTEND Internal Medicine

== ENCOUNTER 2018-08-02 18:25 | Inpatient (IN) ==
--- NOTE | 2018-08-02 18:42 | Emergency Department Note ---
Disposition Clinical Impression: Altered mental status Qualifiers: Altered mental status type: delirium Qualified Code(s): R41.0 - Disorientation, unspecified Pneumonia Qualifiers: Pneumonia type: due to unspecified organism Laterality: left Lung location: lower lobe of lung Qualified Code(s): J18.1 - Lobar pneumonia, unspecified organism Disposition: Admitted As Inpatient Condition: Undetermined Time of Disposition: 22:19 Altered Mental Status HPI - General Chief Complaint: ED Altered Mental Status Stated Complaint: uti, confusion Time Seen by Provider: 08/02/18 18:30 Source: EMS Mode of arrival: EMS Limitations: altered mental status Nursing Notes Reviewed: Yes Vital Signs Reviewed: Yes - History of Present Illness HPI Narrative: 87-year-old female with history of baseline dementia who lives at home with daughter arrives to the emergency department after experiencing a recent diagnosis of urinary tract infection the daughter's concern is worsening. The patient was being brought out here by the daughter and the patient had a mechanical fall. The patient slipped on the steps in the daughter caught her as she was falling backwards. The patient did not strike her head on the ground. There was no loss of consciousness. The patient is complaining of no pain other than mild suprapubic pain. The patient is a very poor historian due to alteration in mentation and history of dementia. The patient is afebrile. She is not tachycardic. She denies any other complaints at this time. - Related Data Home Medications Medication Instructions Recorded Confirmed Atenolol [Tenormin] 100 mg PO DAILY 10/29/15 08/02/18 Cholecalciferol (Vitamin D3) 2,000 unit PO DAILY 10/29/15 08/02/18 [Vitamin D3] Cranberry Fruit Extract [Cranberry] 250 mg PO BID 10/29/15 08/02/18 Donepezil [Aricept] 10 mg PO HS 10/29/15 08/02/18 Levothyroxine [Synthroid] 25 mcg PO DAILY 10/29/15 08/02/18 Memantine HCl [Namenda Xr] 21 mg PO DAILY 10/29/15 08/02/18 Ferrous Sulfate 325 mg PO BID 02/28/16 08/02/18 amLODIPine [Norvasc] 5 mg PO DAILY 06/03/18 08/02/18 Previous Rx's Medication Instructions Recorded Aspirin 81 mg PO DAILY tab.chew 08/04/16 Multivit/Ca/Min/Fe/FA [Thera M 1 tab PO DAILY tablet 12/08/16 Plus] Anastrozole [Arimidex] 1 mg PO DAILY 30 Days #30 tablet 06/10/18 Promethazine [Phenergan] 25 mg PO Q6HR PRN #10 tablet 07/08/18 Sulfamethoxazole/Trimeth DS 1 each PO BID #14 tablet 07/29/18 [Bactrim DS] Allergies Allergy/AdvReac Type Severity Reaction Status Date / Time ciprofloxacin [From Cipro] AdvReac Diarrhea Verified 07/29/18 16:08 Limitations: ROS unobtainable due to patients medical condition Past Medical History - Past Medical History Source: old records reviewed Medical history: Reports: cancer, CHF, dementia, hypertension, renal disease, other Surgical history: Reports: non-contributory, orthopedic, other, other, vascular surgery Psychiatric history: Reports: no psych history DISPLAY DECORATOR history: Reports: non-contributory - Social History Smoking Status: Never smoker Smokeless Tobacco Status: No Alcohol use: Reports: none Drug use: Reports: none Physical Exam - General Limitations: altered mental status General appearance: alert, in no apparent distress - Head Head exam: atraumatic, normocephalic, normal inspection - Eye Eye exam: Present: normal appearance, PERRL, EOMI - ENT ENT exam: normal exam, normal oropharynx, mucous membranes moist - Neck Neck exam: Present: normal inspection, full ROM, trachea midline - Chest Chest inspection: Present: normal inspection, symmetric chest wall rise - Respiratory Respiratory exam: Present: normal lung sounds bilaterally - Cardiovascular Cardiovascular exam: Present: normal rhythm, bradycardia, normal heart sounds - Abdominal Exam Abdominal exam: Present: soft, Non-Tender. Absent: tenderness, distention, guarding, rebound, rigidity - Extremities Exam Extremities exam: Present: normal inspection, full ROM. Absent: tenderness, pedal edema - Neurological Exam Neurological exam: Present: alert - Expanded Neurological Exam Patient oriented to: Present: person Speech: Present: fluid speech Motor strength - LUE: 4/5 Motor strength - RUE: 4/5 Motor strength - LLE: 4/5 Motor strength - RLE: 4/5 Coma Scale Eye Opening: Spontaneous Coma Scale Motor Response: Obeys Commands Coma Scale Verbal Response: Confused Coma Scale Total: 14 - Skin Skin exam: Present: warm, dry, intact, normal color Course Vital Signs Temperature 98.5 F 08/02/18 18:28 Pulse Rate 52 08/02/18 18:28 Respiratory Rate 16 08/02/18 18:28 Blood Pressure 153/63 08/02/18 18:28 O2 Sat by Pulse Oximetry 99 08/02/18 18:28 Temperature 98.5 F 08/02/18 18:28 Pulse Rate 53 08/02/18 22:00 Respiratory Rate 16 08/02/18 22:00 Blood Pressure 135/69 08/02/18 22:00 O2 Sat by Pulse Oximetry 100 08/02/18 22:00 Oxygen Delivery Oxygen Delivery Nasal Cannula Altered Mental Status - MDM Narrative Medical decision making narrative: Patient's work-up in the ED demonstrates findings consistent with a pneumonia. Patient was given azithromycin and Rocephin. The patient remains altered more than baseline. This is likely secondary metabolic. Head CT is negative. Patient will be admitted to the hospital for workup and care. No further questions or concerns noted. Accepted by Dr. Dalton. - Lab Data Lab results reviewed: Yes I reviewed the patient's lab results. Result diagrams: 08/02/18 19:17 08/02/18 19:17 Lab Results 08/02/18 08/02/18 08/02/18 Range/Units 19:14 19:17 19:17 WBC 4.5 (4.3-11.1) K/mcL RBC 3.29 L (3.82-4.97) M/mcL Hgb 11.1 L (11.5-15.4) g/dL Hct 33.7 L (35.3-44.9) % MCV 102.4 H (83.0-100.0) fL MCH 33.7 H (28.0-33.3) pg MCHC 32.9 (31.6-35.5) g/dL RDW 12.6 (11.5-14.5) % Plt Count 138 L (140-400) K/mcL MPV 10.7 (9.4-12.4) fL Immature Gran % 0.2 (0-4) % Seg Neutrophils % 55.2 % Lymphocytes % 27.4 % Monocytes % 15.2 % Eosinophils % 1.6 % Basophils % 0.4 % Neutrophils # 2.5 (1.6-8.9) K/mcL Lymphocytes # 1.2 (0.6-4.6) K/mcL Monocytes # 0.7 (0.0-1.3) K/mcL Eosinophils # 0.1 (0.0-0.6) K/mcL Basophils # 0.0 (0.0-0.2) K/mcL PT 11.4 (9.4-12.1) Seconds INR 1.0 APTT 27.6 (26.0-36.0) Seconds Sodium (136-145) mEq/L Potassium (3.5-5.1) mEq/L Chloride (98-107) mEq/L Carbon Dioxide (23-29) mEq/L BUN (8-23) mg/dL Creatinine (0.60-1.20) mg/dL Est GFR ( Amer) (> 60) Est GFR (Non-Af Amer) (> 60) BUN/Creatinine Ratio (6-26) Glucose (70-105) mg/dL Calculated Osmolality (280-300) Lactic Acid (0.5-2.2) mmol/L Calcium (8.6-10.3) mg/dL Magnesium (1.6-2.6) mg/dL Total Bilirubin (0.3-1.0) mg/dL Direct Bilirubin (0.0-0.2) mg/dL Indirect Bilirubin (0.0-1.2) mg/dL AST (13-39) Units/L ALT (7-52) Units/L Alkaline Phosphatase (34-104) Units/L Troponin I (< 0.04) ng/mL Serum Total Protein (6.4-8.9) g/dL Albumin (3.5-5.7) g/dL Globulin (2.4-3.5) g/dL Albumin/Globulin Ratio (1.1-2.2) Urine Color Yellow (Yellow) Urine Clarity Clear (Clear) Urine pH 6.0 (5.0-8.0) pH Units Ur Specific [place] 1.016 (1.010-1.025) Urine Protein 30 H (Neg-Trace) mg/dL Urine Glucose (UA) Normal (Normal) mg/dL Urine Ketones Negative (Negative) mg/dL Urine Blood Moderate H (Negative) Urine Nitrite Negative (Negative) Urine Bilirubin Negative (Negative) Urine Urobilinogen Normal (Normal) mg/dL Ur Leukocyte Esterase Negative (Negative) Urine Microscopic RBC 15-30 H (0-3) per hpf Urine Microscopic WBC 0-3 (0-3) per hpf Ur Squamous Epith Cells Many H (None-Few) per lpf Ur Transition Epith Cell Moderate H (None-Few) per hpf Urine Bacteria None Seen (None-Few) per hpf Hyaline Casts Few (None-Few) per lpf Ur Culture Indicated? NO (NO) Salicylates (15.0-30.0) mg/dL 08/02/18 08/02/18 08/02/18 Range/Units 19:17 19:17 19:17 WBC (4.3-11.1) K/mcL RBC (3.82-4.97) M/mcL Hgb (11.5-15.4) g/dL Hct (35.3-44.9) % MCV (83.0-100.0) fL MCH (28.0-33.3) pg MCHC (31.6-35.5) g/dL RDW (11.5-14.5) % Plt Count (140-400) K/mcL MPV (9.4-12.4) fL Immature Gran % (0-4) % Seg Neutrophils % % Lymphocytes % % Monocytes % % Eosinophils % % Basophils % % Neutrophils # (1.6-8.9) K/mcL Lymphocytes # (0.6-4.6) K/mcL Monocytes # (0.0-1.3) K/mcL Eosinophils # (0.0-0.6) K/mcL Basophils # (0.0-0.2) K/mcL PT (9.4-12.1) Seconds INR APTT (26.0-36.0) Seconds Sodium 137 (136-145) mEq/L Potassium 3.9 (3.5-5.1) mEq/L Chloride 103 (98-107) mEq/L Carbon Dioxide 24 (23-29) mEq/L BUN 19 (8-23) mg/dL Creatinine 1.66 H (0.60-1.20) mg/dL Est GFR ( Amer) 36 L (> 60) Est GFR (Non-Af Amer) 29 L (> 60) BUN/Creatinine Ratio 11 (6-26) Glucose 109 H (70-105) mg/dL Calculated Osmolality 287 (280-300) Lactic Acid 1.4 (0.5-2.2) mmol/L Calcium 9.8 (8.6-10.3) mg/dL Magnesium 2.3 (1.6-2.6) mg/dL Total Bilirubin 0.3 (0.3-1.0) mg/dL Direct Bilirubin 0.1 (0.0-0.2) mg/dL Indirect Bilirubin 0.2 (0.0-1.2) mg/dL AST 21 (13-39) Units/L ALT 11 (7-52) Units/L Alkaline Phosphatase 84 (34-104) Units/L Troponin I 0.03 (< 0.04) ng/mL Serum Total Protein 6.3 L (6.4-8.9) g/dL Albumin 3.9 (3.5-5.7) g/dL Globulin 2.4 (2.4-3.5) g/dL Albumin/Globulin Ratio 1.6 (1.1-2.2) Urine Color (Yellow) Urine Clarity (Clear) Urine pH (5.0-8.0) pH Units Ur Specific [place] (1.010-1.025) Urine Protein (Neg-Trace) mg/dL Urine Glucose (UA) (Normal) mg/dL Urine Ketones (Negative) mg/dL Urine Blood (Negative) Urine Nitrite (Negative) Urine Bilirubin (Negative) Urine Urobilinogen (Normal) mg/dL Ur Leukocyte Esterase (Negative) Urine Microscopic RBC (0-3) per hpf Urine Microscopic WBC (0-3) per hpf Ur Squamous Epith Cells (None-Few) per lpf Ur Transition Epith Cell (None-Few) per hpf Urine Bacteria (None-Few) per hpf Hyaline Casts (None-Few) per lpf Ur Culture Indicated? (NO) Salicylates < 2.5 L (15.0-30.0) mg/dL - Radiology Data Radiology results reviewed: Yes I reviewed the patient's radiology results. Chest X-Ray 08/02/18 18:34 IMPRESSION: Left lower lobe opacification and possible effusion, concerning for pneumonia. D/ / Stewart Ordonez MD / Stewart Ordonez MD Interpreting Provider: Stewart Ordonez MD Head CT 08/02/18 18:35 IMPRESSION: No acute intracranial abnormality. Generalized atrophy and moderate chronic small vessel ischemic white matter disease. D/ / Mundo Malik MD / Mundo Malik MD Interpreting Provider: Mundo Malik MD - EKG Data EKG attestation: Yes I reviewed and interpreted this EKG. EKG results narrative: Heart rate 53 bpm. Sinus bradycardia. No ST elevation or ST depression noted. Is a QRS associated with every P wave. No other acute abnormalities noted. TPA Checklist - LKW: 3-4.5 hrs Add. Warnings/Precautions Patient/family understanding: The patient/family members have been counseled and understood the risk, benefit, and alternatives of treatment. Attestation Statement - Attestation Attestation: I, Denis Villa, examined this patient and my medical decision-making was reviewed with the AUTOMOTIVE PARTS COUNTER ASSISTANT/PA/Advanced Practice Nurse/Resident Physician. I agree with the documented findings, disposition and treatment plan as described except to the extent set forth below. 87-year-old female presents emergency department for evaluation of possible urinary tract infection versus confusion. Daughter states patient was recently treated for a urinary tract infection with the IM shot of ceftriaxone as well as started on Bactrim. She is currently taking Bactrim and her symptoms have not improved. Microbiology results are preliminary recent resulted in aerococcus urinae. Patient also has a possible pneumonia on chest x-ray. She was given antibiotics emergency department she will be admitted to the hospitalist for further care and evaluation. Patient has not been admitted to the hospital and over the past 3 months.
[2018-08-02 19:29] LABS: Bilirubin,Urine Negative (Negative); Blood,Urine Moderate (Negative); Clarity,Urine Clear (Clear); Color,Urine Yellow (Yellow); Glucose,Urine (UA) Normal (Normal); Ketones,Urine Negative (Negative); Leukocyte Esterase,Urine Negative (Negative); Nitrite,Urine Negative (Negative); Protein,Urine 30 mg/dL (Neg-Trace); Specific Gravity,Urine 1.016 (1.010-1.025); Urobilinogen,Urine Normal (Normal)
[2018-08-02 19:31] LABS: Bacteria,Urine None Seen per hpf (None-Few); Hyaline Casts,Urine Few per lpf (None-Few); RBC,Urine 15-30 per hpf (0-3); Squamous Epithelial Cell,Urine Many per lpf (None-Few); WBC,Urine 0-3 per hpf (0-3)
[2018-08-02 19:35] LABS: Basophils % 0.4 %; Eosinophils # 0.1 K/mcL (0.0-0.6); Eosinophils % 1.6 %; Hematocrit 33.7 % (35.3-44.9); Hemoglobin 11.1 g/dL (11.5-15.4); Immature Granulocytes % 0.2 % (0-4); Lymphocytes # 1.2 K/mcL (0.6-4.6); Lymphocytes % 27.4 %; Mean Corpuscular HGB Conc 32.9 g/dL (31.6-35.5); Mean Corpuscular Hemoglobin 33.7 pg (28.0-33.3); Mean Corpuscular Volume 102.4 fL (83.0-100.0); Mean Platelet Volume 10.7 fL (9.4-12.4); Monocytes # 0.7 K/mcL (0.0-1.3); Monocytes % 15.2 %; Neutrophils # 2.5 K/mcL (1.6-8.9); Platelet Count 138 K/mcL (140-400); Red Blood Count 3.29 M/mcL (3.82-4.97); Red Cell Distribution Width 12.6 % (11.5-14.5); Segmented Neutrophils % 55.2 %
[2018-08-02 19:41] LABS: Prothrombin Time 11.4 Seconds (9.4-12.1)
[2018-08-02 19:43] LABS: Activated Partial Thrombo Time 27.6 Seconds (26.0-36.0)
[2018-08-02 19:45] LABS: Transitional Epi Cells,Urine Moderate per hpf (None-Few)
[2018-08-02] MEDS ORDERED: Azithromycin 500 MG in D5% in Water 250 ML IVPB ONE (19:50)
[2018-08-02] MEDS ORDERED: cefTRIAXone 1,000 MG in Water for inj. (sterile) 20 ML 10 ML IVP ONE (19:50)
[2018-08-02 19:56] LABS: Troponin I 0.03 ng/mL (< 0.04)
[2018-08-02 19:57] LABS: Albumin 3.9 g/dL (3.5-5.7); Albumin/Globulin Ratio 1.6 (1.1-2.2); Bilirubin,Direct 0.1 mg/dL (0.0-0.2); Bilirubin,Indirect 0.2 mg/dL (0.0-1.2); Bilirubin,Total 0.3 mg/dL (0.3-1.0); Calcium 9.8 mg/dL (8.6-10.3); Globulin 2.4 g/dL (2.4-3.5); Magnesium 2.3 mg/dL (1.6-2.6); Potassium 3.9 mEq/L (3.5-5.1); Total Protein 6.3 g/dL (6.4-8.9)
[2018-08-02] MEDS ORDERED: 0.9 % Sodium Chloride 1,000 ML IVC ONE (20:17)
[2018-08-02] MEDS ORDERED: Haloperidol Lactate 5 MG/ML VIAL IVP ONE (20:56)
[2018-08-02] MEDS ORDERED: 3% Sodium Chloride Inhalation 4 ML VIAL.NEB IH STA (20:57)
[2018-08-02] MEDS ORDERED: Ringers Solution, Lactated 1,000 ML IVC SCH (23:00)
--- NOTE | 2018-08-03 00:36 | Internal Med History&Physical ---
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 She is brought in now again with complaints of worsening mental status from her baseline. As per the daughter she frequently gets more confused when she has an infection but this time it has been progressing in spite of therapy. She says she has not noticed any fever or chills and her mother and that she has not been coughing or producing phlegm. She also states that she has not reported any abdominal pain as she would notice because her mother has a very low pain tolerance. In the ER she was seen clinically and hemodynamically stable. Work was grossly unrevealing with normal hematologic parameters and chemistry showing a slight elevation in creatinine to 1.66 from a baseline of 1.3. UA was not suggestive of an active infection. A chest x-ray was done with the suggestion that there was a lower left lobe opacification which prompted the initiation of ceftriaxone and azithromycin for possible community-acquired pneumonia. She is now admitted for further care. On my assessment the patient is in no acute distress and responds appropriate lead to some questions that she knows the answers to. She offers no complaints at this time. Past Med Surg Social Fam HX - Past Medical History Medical history: cancer, CHF, dementia, hypertension, renal disease, other Additional medical history: NADIRA. Chronic venous insufficiency. Alzheimers Psychiatric history: no psych history - Past Surgical History Surgical History: non-contributory, orthopedic, other, other, vascular surgery Additional surgical history: vein stripping. left wrist - Social History Smoking Status: Never smoker Smokeless Tobacco Status: No Alcohol use: none Drug use: none - Family History Father History Unknown: Yes Mother Living Status: Hx Family Cardiac Disorders: (CHF) Internal Medicine - H&P: Meds Atenolol [Tenormin] 100 mg PO DAILY 10/29/15 [History] Cholecalciferol (Vitamin D3) [Vitamin D3] 2,000 unit PO DAILY 10/29/15 [History] Cranberry Fruit Extract [Cranberry] 250 mg PO BID 10/29/15 [History] Donepezil [Aricept] 10 mg PO HS 10/29/15 [History] Levothyroxine [Synthroid] 25 mcg PO DAILY 10/29/15 [History] Memantine HCl [Namenda Xr] 21 mg PO DAILY 10/29/15 [History] Ferrous Sulfate 325 mg PO BID 02/28/16 [History] Aspirin 81 mg PO DAILY tab.chew 03/02/16 [Rx] Multivit/Ca/Min/Fe/FA [Thera M Plus] 1 tab PO DAILY tablet 12/08/16 [Rx] amLODIPine [Norvasc] 5 mg PO DAILY 06/03/18 [History] Anastrozole [Arimidex] 1 mg PO DAILY 30 Days #30 tablet 06/10/18 [Rx] Promethazine [Phenergan] 25 mg PO Q6HR PRN #10 tablet 07/08/18 [Rx] Sulfamethoxazole/Trimeth DS [Bactrim DS] 1 each PO BID #14 tablet 07/29/18 [Rx] Allergy/AdvReac Type Severity Reaction Status Date / Time ciprofloxacin [From Cipro] AdvReac Diarrhea Verified 07/29/18 16:08 All Systems PM: A 10-system review of systems was performed and is negative for pertinent findings except as documented above in the HPI. - Constitutional Vitals: Temp Pulse Resp BP Pulse Ox 98.2 F 49 16 132/72 95 08/02/18 23:43 08/02/18 23:43 08/02/18 23:43 08/02/18 23:43 08/02/18 23:43 Exam: Vitals: Reviewed General: Well appearing, NAD Skin: Warm and supple HEENT: Dry oral mucous membranes. No conjunctivae pallor. Neck: No lymphadenopathy. No JVD. No carotid bruits. No palpable thyroid. Chest: Normal thoracic expansion. Normal breath sounds. Clear to auscultation. Heart: Normal S1 & S2; rhythmic. No rubs or murmurs. Abdomen: Non-distended, soft and non-tender to palpation. No peritoneal reaction. . Extremities: No calf tenderness. Normal distal pulses. Neurological: Awake, alert and oriented to person. No focal deficits. Psych: Affect appropriate. Internal Med - H&P Results - Labs CBC & Chem 7: 08/02/18 19:17 08/02/18 19:17 Labs: Short CBC 08/02/18 Range/Units 19:17 WBC 4.5 (4.3-11.1) K/mcL Hgb 11.1 L (11.5-15.4) g/dL Hct 33.7 L (35.3-44.9) % Plt Count 138 L (140-400) K/mcL Neutrophils # 2.5 (1.6-8.9) K/mcL BMP 08/02/18 19:17 Sodium 137 Potassium 3.9 Chloride 103 Carbon Dioxide 24 BUN 19 Creatinine 1.66 H Glucose 109 H Calcium 9.8 Cardiac Enzymes 08/02/18 Range/Units 19:17 Troponin I 0.03 (< 0.04) ng/mL Liver Function 08/02/18 Range/Units 19:17 Total Bilirubin 0.3 (0.3-1.0) mg/dL Direct Bilirubin 0.1 (0.0-0.2) mg/dL AST 21 (13-39) Units/L ALT 11 (7-52) Units/L Alkaline Phosphatase 84 (34-104) Units/L Albumin 3.9 (3.5-5.7) g/dL Urine 08/02/18 Range/Units 19:14 Urine Color Yellow (Yellow) Urine Clarity Clear (Clear) Urine pH 6.0 (5.0-8.0) pH Units Ur Specific [place] 1.016 (1.010-1.025) Urine Protein 30 H (Neg-Trace) mg/dL Urine Glucose (UA) Normal (Normal) mg/dL - Impressions ITS Impressions Chest X-Ray 08/02/18 18:34 IMPRESSION: Left lower lobe opacification and possible effusion, concerning for pneumonia. D/ / Stewart Ordonze MD / Stewart Ordonez MD Interpreting Provider: Stewart Ordonez MD Head CT 08/02/18 18:35 IMPRESSION: No acute intracranial abnormality. Generalized atrophy and moderate chronic small vessel ischemic white matter disease. D/ / Mundo Malik MD / Mundo Malik MD Interpreting Provider: Mundo Malik MD - Assessment and plan (1) Acute encephalopathy Current Visit: Yes Status: Acute Assessment and plan: Concern for an underlying infection as the trigger. Currently she has no signs of skin/soft tissue infection, her UA does not correlate with infection and 3 days of TMP/SMX is sufficient for a simple cystitis, she has no respiratory symptoms and on my review of the CXR, it was not overly revealing of an infiltrate. Will order a chest CT w/o contrast for evaluation of consolidation. In the interim she has received ceftriaxone and azithromycin which will provide sufficient coverage for the next 24 hours pending further results and clinical evolution. Blood cultures sent too. Non-infectious causes such as medications (tmp/smx) and dehydration (has had poor oral intake with evidence of ROSS) are also differentials to be considered in tandem which will be tackled accordingly. (2) Acute renal failure superimposed on stage 3 chronic kidney disease Current Visit: Yes Status: Acute Assessment and plan: Likely pre-renal secondary to poor oral intake. Will provide IVF resuscitation and recheck BMP. Qualifiers: Acute renal failure type: unspecified Qualified Code(s): N17.9 - Acute kidney failure, unspecified; N18.3 - Chronic kidney disease, stage 3 (moderate) (3) Breast cancer, right Current Visit: Yes Status: Acute Assessment and plan: Continue daily Arimidex. Qualifiers: Breast location: central portion of breast Estrogen receptor status: posit jorden Patient sex: female Qualified Code(s): C50.111 - Malignant neoplasm of central portion of right female breast; Z17.0 - Estrogen receptor positive status [ER+] (4) Dementia Current Visit: Yes Status: Acute Assessment and plan: Continue donepezil and memantine. Frequent re-orientation. Code status checked with the patient's daughter but refused to specify stating "she has a living will and all that stuff was scanned into the system so that's all I know". Will place on full code. Qualifiers: Dementia type: unspecified type Dementia behavioral disturbance: without behavioral disturbance Qualified Code(s): F03.90 - Unspecified dementia without behavioral disturbance (5) DVT prophylaxis Current Visit: Yes Status: Acute Assessment and plan: SubQ heparin - Time Spent With Patient Total time spent is greater than 50% in coordination of care (as documented) at patient's floor/unit and/or counseling patient: Greater than 35 minutes
[2018-08-03 05:13] LABS: Basophils % 0.3 %; Hematocrit 29.6 % (35.3-44.9); Immature Granulocytes % 0.3 % (0-4); Lymphocytes % 24.5 %; Mean Corpuscular HGB Conc 32.1 g/dL (31.6-35.5); Mean Corpuscular Hemoglobin 33.5 pg (28.0-33.3); Mean Corpuscular Volume 104.2 fL (83.0-100.0); Monocytes # 0.6 K/mcL (0.0-1.3); Monocytes % 14.1 %; Neutrophils # 2.4 K/mcL (1.6-8.9); Platelet Count 103 K/mcL (140-400); Red Blood Count 2.84 M/mcL (3.82-4.97); Red Cell Distribution Width 12.8 % (11.5-14.5); Segmented Neutrophils % 59.8 %
[2018-08-03 05:23] LABS: Calcium 9.1 mg/dL (8.6-10.3); Potassium 3.9 mEq/L (3.5-5.1)
[2018-08-03 05:35] LABS: Hemoglobin 9.5 g/dL (11.5-15.4)
[2018-08-03] MEDS: *HR* Heparin 5,000 UNIT/ML VIAL SQ SCH ×3 (05:51→21:18)
[2018-08-03] MEDS: Levothyroxine 25 MCG TABLET PO SCH (05:52)
[2018-08-03] MEDS: MEMANTINE HCL 21 MG PO SCH (08:15)
[2018-08-03] MEDS: Aspirin 81 MG TAB.CHEW PO SCH (08:25)
[2018-08-03] MEDS: Cholecalciferol (D-3) 1,000 UNIT TABLET PO SCH (08:25)
[2018-08-03] MEDS: Anastrozole 1 MG TABLET PO SCH (08:25)
[2018-08-03] MEDS: Multivit/Ca/Min/Fe/FA 1 TAB TABLET PO SCH (08:25)
[2018-08-03] MEDS: amLODIPine 5 MG TABLET PO SCH (08:25)
--- NOTE | 2018-08-03 13:34 | Event Note ---
Date of Encounter: 08/03/18 Time of Encounter: 13:34 Patient was seen earlier this morning by the hospitalist- currently patient daughter is at bedside- patient is agitated and screaming at times- we will obtain GI panel since patient does have some diarrhea as well as resp panel- she has been coughing and goes to an adult daycare during the day . I discussed treatment plan with daughter who verbalized understanding
[2018-08-04] MEDS: *HR* Heparin 5,000 UNIT/ML VIAL SQ SCH ×3 (07:21→21:14)
[2018-08-04] MEDS: Levothyroxine 25 MCG TABLET PO SCH (07:21)
[2018-08-04] MEDS: Cholecalciferol (D-3) 1,000 UNIT TABLET PO SCH (08:38)
[2018-08-04] MEDS: Anastrozole 1 MG TABLET PO SCH (08:38)
[2018-08-04] MEDS: amLODIPine 5 MG TABLET PO SCH (08:38)
[2018-08-04] MEDS: Aspirin 81 MG TAB.CHEW PO SCH (08:38)
[2018-08-04] MEDS: Multivit/Ca/Min/Fe/FA 1 TAB TABLET PO SCH (08:38)
[2018-08-04 08:58] LABS: Adenovirus Not Detected (Not Detect); Bordetella Pertussis Not Detected (Not Detect); Chlamydophila pneumoniae Not Detected (Not Detect); Coronavirus 229E Not Detected (Not Detect); Coronavirus HKU1 Not Detected (Not Detect); Coronavirus NL63 Not Detected (Not Detect); Coronavirus OC43 Not Detected (Not Detect); Human Metapneumovirus Not Detected (Not Detect); Human Rhinovirus/Enterovirus Not Detected (Not Detect); Influenza A Subtype 2009 H1 Not Detected (Not Detect); Influenza A Untypeable Not Detected (Not Detect); Influenza B Not Detected (Not Detect); Mycoplasma pneumoniae Not Detected (Not Detect); Parainfluenza Virus 1 Not Detected (Not Detect); Parainfluenza Virus 2 Not Detected (Not Detect); Parainfluenza Virus 3 Not Detected (Not Detect); Parainfluenza Virus 4 Not Detected (Not Detect); Respiratory Syncytial Virus Not Detected (Not Detect)
--- NOTE | 2018-08-04 09:36 | Internal Med Progress Note ---
Hospitalist Progress Note - Encounter Date of Encounter: 08/04/18 Time of Encounter: 09:36 - Subjective Interval History: Patient was seen and examined earlier this AM She was pleasanrt and cooperative Oriented to name and place As the day progressed she became more confused and agitated screaming and striking out at staff. - Exam Vitals: Temp Pulse Resp BP Pulse Ox 98.4 F 57 15 175/83 97 08/04/18 06:12 08/04/18 06:12 08/04/18 06:12 08/04/18 06:12 08/04/18 08:46 Exam: Vitals: Reviewed General: Well appearing, NAD Skin: Warm and supple HEENT: Dry oral mucous membranes. No conjunctivae pallor. Neck: No lymphadenopathy. No JVD. No carotid bruits. No palpable thyroid. Chest: Normal thoracic expansion. Normal breath sounds. Clear to auscultation. Heart: Normal S1 & S2; rhythmic. No rubs or murmurs. Abdomen: Non-distended, soft and non-tender to palpation. No peritoneal reaction. . Extremities: No calf tenderness. Normal distal pulses. Neurological: Awake, alert and oriented to person. No focal deficits. Psych: Affect appropriate. - Assessment and Plan (1) DVT prophylaxis Current Visit: Yes Status: Acute Assessment and Plan: SubQ heparin (2) Dementia Current Visit: Yes Status: Acute Assessment and Plan: Continue donepezil and memantine. Frequent re-orientation. Code status checked with the patient's daughter but refused to specify stating "she has a living will and all that stuff was scanned into the system so that's all I know". Will place on full code. 08/04/2018 Cont with donepezil and memantine-she has been pleasant and cooperative this am however as day has progressed she has become more agitated- I suspect that her dementia maybe advancing and I discussed this with the daughter- we will have her evaluated by PT/OT and speech- also director global development - I noticed she is not eating well - will have nursing assist with feeding the patient (3) Acute encephalopathy Current Visit: Yes Status: Acute Assessment and Plan: Concern for an underlying infection as the trigger. Currently she has no signs of skin/soft tissue infection, her UA does not correlate with infection and 3 days of TMP/SMX is sufficient for a simple cystitis, she has no respiratory symptoms and on my review of the CXR, it was not overly revealing of an infiltrate. Will order a chest CT w/o contrast for evaluation of consolidation. In the interim she has received ceftriaxone and azithromycin which will provide sufficient coverage for the next 24 hours pending further results and clinical evolution. Blood cultures sent too. Non-infectious causes such as medications (tmp/smx) and dehydration (has had poor oral intake with evidence of ROSS) are also differentials to be considered in tandem which will be tackled accordingly 1 No signs of infectious process- no fever white count is not elevated blood cultures negative to date CT of chest wo contrast Marked technical limitations are present relating to extensive respiratory motion artifact. Within this limitation, there is no focal dense intrapulmonary consolidative process. Mild basilar ground-glass atelectatic changes are noted. Left lower lobe retrocardiac subtle airspace disease would be difficult to exclude. Heavy atherosclerotic calcifications are noted. The sheet mill supervisor film for this CT scan demonstrates loops of bowel, likely colon which appear to demonstrate nonspecific mild gaseous distention. This is of uncertain significance. Consider correlating with dedicated abdominal imaging such as flat and upright abdominal series. -Worsening dementia? -rt dehydration ? she seems to be improving but she has poor oral intake (4) Acute renal failure superimposed on stage 3 chronic kidney disease Current Visit: Yes Status: Acute Assessment and Plan: Likely pre-renal secondary to poor oral intake. Will provide IVF resuscitation and recheck BMP 08/04/2018 Improving - appears to be back to baseline .(1.4-1.2) monitor electrolytes, creatinine monitor I?O daily weights avoid nephrotoxins (5) Breast cancer, right Current Visit: Yes Status: Acute Assessment and Plan: Continue daily Arimidex. - Time Spent with Patient Total time spent is greater than 50% in coordination of care (as documented) at patient's floor/unit and/or counseling patient: Internal Medicine: Result - Labs CBC & Chem 7: 08/04/18 10:44 08/04/18 10:44 - ABG Interpretation ABG results: PT/INR, D-dimer PT 11.4 Seconds (9.4-12.1) 08/02/18 19:17 - Impressions Impressions Chest CT 08/03/18 00:15 IMPRESSION: Marked technical limitations are present relating to extensive respiratory motion artifact. Within this limitation, there is no focal dense intrapulmonary consolidative process. Mild basilar ground-glass atelectatic changes are noted. Left lower lobe retrocardiac subtle airspace disease would be difficult to exclude. Heavy atherosclerotic calcifications are noted. The sheet mill supervisor film for this CT scan demonstrates loops of bowel, likely colon which appear to demonstrate nonspecific mild gaseous distention. This is of uncertain significance. Consider correlating with dedicated abdominal imaging such as flat and upright abdominal series. Nonobstructing left intrarenal stones are noted. The findings were sent to the [facility] at 2:26 pm on 08/03/2018to be communicated to a licensed caregiver. D/ / 08/03/2018 14:30:29 Cisco Tovar MD / noé Interpreting Provider: Cisco Tovar MD Consult Discharge Plan - Plan Referrals: NONE,PCP [Primary Care Provider] - (2) Dementia Qualifiers: Dementia type: unspecified type Dementia behavioral disturbance: without behavioral disturbance Qualified Code(s): F03.90 - Unspecified dementia without behavioral disturbance (4) Acute renal failure superimposed on stage 3 chronic kidney disease Qualifiers: Acute renal failure type: unspecified Qualified Code(s): N17.9 - Acute kidney failure, unspecified; N18.3 - Chronic kidney disease, stage 3 (moderate) (5) Breast cancer, right Qualifiers: Breast location: central portion of breast Estrogen receptor status: positive Patient sex: female Qualified Code(s): C50.111 - Malignant neoplasm of central portion of right female breast; Z17.0 - Estrogen receptor positive status [ER+]
[2018-08-04] MEDS: MEMANTINE HCL 21 MG PO SCH (09:39)
[2018-08-04 11:29] LABS: Basophils % 0.4 %; Eosinophils # 0.1 K/mcL (0.0-0.6); Eosinophils % 2.2 %; Hematocrit 29.2 % (35.3-44.9); Hemoglobin 9.5 g/dL (11.5-15.4); Immature Granulocytes % 0.2 % (0-4); Lymphocytes % 22.6 %; Mean Corpuscular HGB Conc 32.5 g/dL (31.6-35.5); Mean Corpuscular Hemoglobin 33.3 pg (28.0-33.3); Mean Corpuscular Volume 102.5 fL (83.0-100.0); Mean Platelet Volume 11.4 fL (9.4-12.4); Monocytes # 0.5 K/mcL (0.0-1.3); Monocytes % 11.1 %; Neutrophils # 2.9 K/mcL (1.6-8.9); Platelet Count 107 K/mcL (140-400); Red Blood Count 2.85 M/mcL (3.82-4.97); Red Cell Distribution Width 12.7 % (11.5-14.5); Segmented Neutrophils % 63.5 %
[2018-08-04 11:46] LABS: Calcium 8.8 mg/dL (8.6-10.3); Potassium 3.8 mEq/L (3.5-5.1)
[2018-08-04 19:59] LABS: Adenovirus F 40/41 PCR Not detected (Not detect); Astrovirus PCR Not detected (Not detect); Campylobacter by PCR Not detected (Not detect); Cryptosporidium by PCR Not detected (Not detect); Cyclospora cayetanensis PCR Not detected (Not detect); E. coli O157 by PCR Not detected (Not detect); Entamoeba histolytica PCR Not detected (Not detect); Enteroaggregative E.coli(EAEC) Not detected (Not detect); Enteropathogenic E.coli(EPEC) Not detected (Not detect); Enterotoxigenic E.coli (ETEC) Not detected (Not detect); Giardia lamblia PCR Not detected (Not detect); Norovirus GI/GII PCR Not detected (Not detect); Plesiomonas shigelloides PCR Not detected (Not detect); Rotavirus A PCR Not detected (Not detect); Salmonella PCR Not detected (Not detect); Sapovirus PCR Not detected (Not detect); Shig/EnteroinvasiveE coli EIEC Not detected (Not detect); Shigalike tox-prod E coli STEC Not detected (Not detect); Vibrio PCR Not detected (Not detect); Vibrio cholerae PCR Not detected (Not detect); Yersinia enterocolitica PCR Not detected (Not detect)
[2018-08-04 20:03] LABS: C.difficile Toxin A/B Gene PCR DETECTED (Not detect)
[2018-08-04] MEDS: Vancomycin Oral Soln 125 MG/2.5 ML UDC PO SCH (21:14)
[2018-08-05] MEDS: MetroNIDAZOLE 500 MG/100 ML 500 MG/100 ML BAG IVPB SCH ×4 (00:15→17:57)
--- NOTE | 2018-08-05 02:11 | Event Note ---
Date of Encounter: 08/04/18 Time of Encounter: 20:05 Alerted by patient's nurse that lab had called to report that patient is positive for C. difficile. Oral vancomycin and IVPB Flagyl ordered. Continue contact precautions.
[2018-08-05] MEDS: Acetaminophen 325 MG TABLET PO PRN ×2 (04:29→20:25)
[2018-08-05 05:25] LABS: Basophils % 0.5 %; Eosinophils # 0.1 K/mcL (0.0-0.6); Eosinophils % 1.9 %; Hematocrit 30.5 % (35.3-44.9); Hemoglobin 9.8 g/dL (11.5-15.4); Immature Granulocytes % 0.5 % (0-4); Lymphocytes # 1.1 K/mcL (0.6-4.6); Lymphocytes % 24.6 %; Mean Corpuscular HGB Conc 32.1 g/dL (31.6-35.5); Mean Corpuscular Hemoglobin 33.8 pg (28.0-33.3); Mean Corpuscular Volume 105.2 fL (83.0-100.0); Mean Platelet Volume 11.2 fL (9.4-12.4); Monocytes # 0.5 K/mcL (0.0-1.3); Monocytes % 11.7 %; Neutrophils # 2.6 K/mcL (1.6-8.9); Platelet Count 106 K/mcL (140-400); Red Cell Distribution Width 12.6 % (11.5-14.5); Segmented Neutrophils % 60.8 %
[2018-08-05 05:42] LABS: Calcium 8.7 mg/dL (8.6-10.3); Potassium 3.3 mEq/L (3.5-5.1)
[2018-08-05] MEDS: *HR* Heparin 5,000 UNIT/ML VIAL SQ SCH ×3 (06:17→20:26)
[2018-08-05] MEDS: Levothyroxine 25 MCG TABLET PO SCH (06:18)
[2018-08-05] MEDS: Multivit/Ca/Min/Fe/FA 1 TAB TABLET PO SCH (11:09)
[2018-08-05] MEDS: Cholecalciferol (D-3) 1,000 UNIT TABLET PO SCH (11:09)
[2018-08-05] MEDS: Aspirin 81 MG TAB.CHEW PO SCH (11:09)
[2018-08-05] MEDS: Anastrozole 1 MG TABLET PO SCH (11:09)
[2018-08-05] MEDS: amLODIPine 5 MG TABLET PO SCH (11:10)
[2018-08-05] MEDS: Vancomycin Oral Soln 125 MG/2.5 ML UDC PO SCH ×4 (11:16→20:26)
[2018-08-05] MEDS: MEMANTINE HCL 21 MG PO SCH (11:17)
[2018-08-05] MEDS ORDERED: Potassium Chloride 20 MEQ, Lidocaine 1% 2 ML in D5% in Water 250 ML IVPB ONE (13:18)
--- NOTE | 2018-08-05 13:22 | Internal Med Progress Note ---
Hospitalist Progress Note - Encounter Date of Encounter: 08/05/18 Time of Encounter: 13:22 - Subjective Interval History: Patient was seen and examined at bedside. Currently patient is oriented to name only she becomes very agitated easily and at times will strike out at staff -GI pain was not completed dissociative patient will receive vancomycin and Flagyl. I anticipate patient to be discharged home tomorrow no further stools today - Exam Vitals: Temp Pulse Resp BP Pulse Ox 98.2 F 63 16 145/75 98 08/05/18 11:54 08/05/18 11:54 08/05/18 11:54 08/05/18 11:54 08/05/18 11:54 Exam: Vitals: Reviewed General: Well appearing, NAD Skin: Warm and supple HEENT: Dry oral mucous membranes. No conjunctivae pallor. Neck: No lymphadenopathy. No JVD. No carotid bruits. No palpable thyroid. Chest: Normal thoracic expansion. Normal breath sounds. Clear to auscultation. Heart: Normal S1 & S2; rhythmic. No rubs or murmurs. Abdomen: Non-distended, soft and non-tender to palpation. No peritoneal reaction. . Extremities: No calf tenderness. Normal distal pulses. Neurological: Awake, alert and oriented to person. No focal deficits. Psych: Affect appropriate. - Assessment and Plan (1) DVT prophylaxis Current Visit: Yes Status: Acute Assessment and Plan: SubQ heparin (2) Dementia Current Visit: Yes Status: Acute Assessment and Plan: Continue donepezil and memantine. Frequent re-orientation. Code status checked with the patient's daughter but refused to specify stating "she has a living will and all that stuff was scanned into the system so that's all I know". Will place on full code. 08/04/2018 Cont with donepezil and memantine-she has been pleasant and cooperative this am however as day has progressed she has become more agitated- I suspect that her dementia maybe advancing and I discussed this with the daughter- we will have her evaluated by PT/OT and speech- also hvac maintenance technician - I noticed she is not eating well - will have nursing assist with feeding the patient 08/05/2018 Continue with -donepezil and memantine- patient has not been eating well however since she is positive for C. difficile will continue to monitor oral intake (3) Acute encephalopathy Current Visit: Yes Status: Acute Assessment and Plan: Concern for an underlying infection as the trigger. Currently she has no signs of skin/soft tissue infection, her UA does not correlate with infection and 3 d ays of TMP/SMX is sufficient for a simple cystitis, she has no respiratory symptoms and on my review of the CXR, it was not overly revealing of an infiltrate. Will order a chest CT w/o contrast for evaluation of consolidation. In the interim she has received ceftriaxone and azithromycin which will provide sufficient coverage for the next 24 hours pending further results and clinical evolution. Blood cultures sent too. Non-infectious causes such as medications (tmp/smx) and dehydration (has had poor oral intake with evidence of ROSS) are also differentials to be considered in tandem which will be tackled accordingly 1 No signs of infectious process- no fever white count is not elevated blood cultures negative to date CT of chest wo contrast Marked technical limitations are present relating to extensive respiratory motion artifact. Within this limitation, there is no focal dense intrapulmonary consolidative process. Mild basilar ground-glass atelectatic changes are noted. Left lower lobe retrocardiac subtle airspace disease would be difficult to exclude. Heavy atherosclerotic calcifications are noted. The product representative film for this CT scan demonstrates loops of bowel, likely colon which appear to demonstrate nonspecific mild gaseous distention. This is of uncertain significance. Consider correlating with dedicated abdominal imaging such as flat and upright abdominal series. -Worsening dementia? -rt dehydration ? she seems to be improving but she has poor oral intake 08/05/2018 Appears patient has C. difficile-infectious process could be contributing to acute encephalopathy-however patient does have underlying dementia so is difficult to evaluate her baseline (4) Acute renal failure superimposed on stage 3 chronic kidney disease Current Visit: Yes Status: Acute Assessment and Plan: Likely pre-renal secondary to poor oral intake. Will provide IVF resuscitation and recheck BMP 08/04/2018 Improving - appears to be back to baseline .(1.4-1.2) monitor electrolytes, creatinine monitor I?O daily weights avoid nephrotoxins 08/05/2018 Appears to be back to baseline we will continue to monitor closely Monitor electrolytes and creatinine Monitor intake and output daily weight Avoid nephrotoxins (5) Breast cancer, right Current Visit: Yes Status: Acute Assessment and Plan: Continue daily Arimidex. (6) Hypokalemia Current Visit: Yes Status: Acute Assessment and Plan: Replace and monitor (7) C. difficile diarrhea Current Visit: Yes Status: Acute Assessment and Plan: Panel has been completed positive for C. difficile daughter states patient has had C. difficile in the past approximately year ago? We will continue with vancomycin and Flagyl. Monitor stools anticipate possible discharge in a.m. if stools have slowed and patient is able to take oral medication - Time Spent with Patient Total time spent is greater than 50% in coordination of care (as documented) at patient's floor/unit and/or counseling patient: Internal Medicine: Result - Labs CBC & Chem 7: 08/05/18 04:59 08/05/18 04:59 Labs: Short CBC 08/05/18 Range/Units 04:59 WBC 4.3 (4.3-11.1) K/mcL Hgb 9.8 L (11.5-15.4) g/dL Hct 30.5 L (35.3-44.9) % Plt Count 106 L (140-400) K/mcL Neutrophils # 2.6 (1.6-8.9) K/mcL BMP 08/05/18 04:59 Sodium 138 Potassium 3.3 L Chloride 107 Carbon Dioxide 24 BUN 15 Creatinine 1.21 H Glucose 98 Calcium 8.7 - ABG Interpretation ABG results: PT/INR, D-dimer PT 11.4 Seconds (9.4-12.1) 08/02/18 19:17 - Impressions Impressions KUB X-Ray 08/04/18 18:27 IMPRESSION: Unremarkable KUB. D/ / Naveed Shea / Naveed Shea Interpreting Provider: Naveed Shea Consult Discharge Plan - Plan Referrals: NONE,PCP [Primary Care Provider] - (2) Dementia Qualifiers: Dementia type: unspecified type Dementia behavioral disturbance: without be havioral disturbance Qualified Code(s): F03.90 - Unspecified dementia without behavioral disturbance (4) Acute renal failure superimposed on stage 3 chronic kidney disease Qualifiers: Acute renal failure type: unspecified Qualified Code(s): N17.9 - Acute kidney failure, unspecified; N18.3 - Chronic kidney disease, stage 3 (moderate) (5) Breast cancer, right Qualifiers: Breast location: central portion of breast Estrogen receptor status: positive Patient sex: female Qualified Code(s): C50.111 - Malignant neoplasm of central portion of right female breast; Z17.0 - Estrogen receptor positive status [ER+]
--- NOTE | 2018-08-05 14:33 | Electrocardiograph Report ---
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
[2018-08-06] MEDS: MetroNIDAZOLE 500 MG/100 ML 500 MG/100 ML BAG IVPB SCH ×2 (00:23→05:44)
[2018-08-06] MEDS: *HR* Heparin 5,000 UNIT/ML VIAL SQ SCH ×3 (05:43→21:24)
[2018-08-06] MEDS: Levothyroxine 25 MCG TABLET PO SCH (05:44)
[2018-08-06] MEDS: Aspirin 81 MG TAB.CHEW PO SCH (10:18)
[2018-08-06] MEDS: Cholecalciferol (D-3) 1,000 UNIT TABLET PO SCH (10:18)
[2018-08-06] MEDS: Vancomycin Oral Soln 125 MG/2.5 ML UDC PO SCH ×4 (10:18→21:23)
[2018-08-06] MEDS: MEMANTINE HCL 21 MG PO SCH (10:19)
[2018-08-06] MEDS: amLODIPine 5 MG TABLET PO SCH (10:19)
[2018-08-06] MEDS: Multivit/Ca/Min/Fe/FA 1 TAB TABLET PO SCH (10:19)
[2018-08-06] MEDS: Anastrozole 1 MG TABLET PO SCH (10:19)
--- NOTE | 2018-08-06 14:47 | Internal Med Progress Note ---
Hospitalist Progress Note - Encounter Date of Encounter: 08/06/18 Time of Encounter: 10:30 - Subjective Interval History: Ms. 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 She is brought in now again with complaints of worsening mental status from her baseline. In the ER her UA was not suggestive of an active infection. A chest x-ray was done with the suggestion that there was a lower left lobe opacification , however her CT of chest did not show any infiltrates. Patient did have diarrhea for which we did send for G.I. panel which came back as positive for C diff infection. Patient was placed on oral vancomycin. She still having diarrhea. She denied any abdominal pain and tolerating oral intake well. - Exam Vitals: Temp Pulse Resp BP Pulse Ox 98.0 F 54 18 176/83 94 08/06/18 11:10 08/06/18 11:10 08/06/18 11:10 08/06/18 11:10 08/06/18 11:10 Exam: Gen: Alert, awake, Oriented to self only.. Pleasantly demented Chest: Diminished breath sounds B/L, No wheezing, No crackles, No rales Heart: S1S2+ RRR No murmurs Abd: Soft, NT, BS +, No organomegaly Ext: No edema, pulses are palpable, No calf tenderness Neuro : Benign findings Skin: No rash. - Assessment and Plan (1) C. difficile diarrhea Current Visit: Yes Status: Acute Assessment and Plan: She still has watery diarrhea cont PO vancomycin No need of Flagyl Probiotic ordered Avoid PPI (2) DVT prophylaxis Current Visit: Yes Status: Acute Assessment and Plan: SubQ heparin (3) Dementia Current Visit: Yes Status: Acute Assessment and Plan: Advanced dementia continue symptomatic and supportive care fall precautions Continue with -donepezil and memantine (4) Acute encephalopathy Current Visit: Yes Status: Acute Assessment and Plan: She does have acute toxic encephalopathy with underlying dementia improving continue symptomatic and supportive care (5) Acute renal failure superimposed on stage 3 chronic kidney disease Current Visit: Yes Status: Acute Assessment and Plan: Improved with IV hydration currently at baseline (6) Breast cancer, right Current Visit: Yes Status: Acute Assessment and Plan: Continue daily Arimidex. (7) Hypokalemia Current Visit: Yes Status: Acute Assessment and Plan: Replace and monitor (8) Physical deconditioning Current Visit: Yes Status: Acute Assessment and Plan: pt / ot eval may need ECF placement - Time Spent with Patient Total time spent is greater than 50% in coordination of care (as documented) at patient's floor/unit and/or counseling patient: Internal Medicine: Result - Labs CBC & Chem 7: 08/05/18 04:59 08/05/18 04:59 - ABG Interpretation ABG results: PT/INR, D-dimer PT 11.4 Seconds (9.4-12.1) 08/02/18 19:17 Consult Discharge Plan - Plan Referrals: NONE,PCP [Primary Care Provider] - (3) Dementia Qualifiers: Dementia type: unspecified type Dementia behavioral disturbance: without behavioral disturbance Qualified Code(s): F03.90 - Unspecified dementia without behavioral disturbance (5) Acute renal failure superimposed on stage 3 chronic kidney disease Qualifiers: Acute renal failure type: unspecified Qualified Code(s): N17.9 - Acute kidney failure, unspecified; N18.3 - Chronic kidney disease, stage 3 (moderate) (6) Breast cancer, right Qualifiers: Breast location: central portion of breast Estrogen receptor status: positive Patient sex: female Qualified Code(s): C50.111 - Malignant neoplasm of central portion of right female breast; Z17.0 - Estrogen receptor positive status [ER+]
[2018-08-06] MEDS: Acetaminophen 325 MG TABLET PO PRN (21:24)
[2018-08-07] MEDS: Levothyroxine 25 MCG TABLET PO SCH (06:16)
[2018-08-07] MEDS: *HR* Heparin 5,000 UNIT/ML VIAL SQ SCH (06:16)
[2018-08-07] MEDS: Anastrozole 1 MG TABLET PO SCH (09:39)
[2018-08-07] MEDS: Aspirin 81 MG TAB.CHEW PO SCH (09:39)
[2018-08-07] MEDS: Cholecalciferol (D-3) 1,000 UNIT TABLET PO SCH (09:39)
[2018-08-07] MEDS: Vancomycin Oral Soln 125 MG/2.5 ML UDC PO SCH (09:39)
[2018-08-07] MEDS: amLODIPine 5 MG TABLET PO SCH (09:39)
[2018-08-07] MEDS: Multivit/Ca/Min/Fe/FA 1 TAB TABLET PO SCH (09:39)
[2018-08-07] MEDS: MEMANTINE HCL 21 MG PO SCH (09:40)
--- NOTE | 2018-08-07 13:23 | Discharge Summary ---
- NOTES TO OUTPATIENT PROVIDER Notes to Outpatient Provider: Follow up with PCP in one week Orders not resulted at time of discharge: Pending orders 08/02/18 19:17 Culture,Blood [BC] Stat Date of Encounter: 08/07/18 Time of Encounter: 13:21 - Discharge Diagnosis (1) C. difficile diarrhea Priority: Primary Status: Acute (2) Acute encephalopathy Priority: Primary Status: Acute (3) Acute renal failure superimposed on stage 3 chronic kidney disease Priority: Primary Status: Acute Qualifiers: Acute renal failure type: unspecified Qualified Code(s): N17.9 - Acute kidney failure, unspecified; N18.3 - Chronic kidney disease, stage 3 (moderate) (4) Breast cancer, right Priority: Secondary Status: Acute Qualifiers: Breast location: central portion of breast Estrogen receptor status: positive Patient sex: female Qualified Code(s): C50.111 - Malignant neoplasm of central portion of right female breast; Z17.0 - Estrogen receptor positive status [ER+] (5) Hypokalemia Priority: Secondary Status: Acute (6) Physical deconditioning Priority: Secondary Status: Acute (7) Dementia Priority: Secondary Status: Acute Qualifiers: Dementia type: unspecified type Dementia behavioral disturbance: without behavioral disturbance Qualified Code(s): F03.90 - Unspecified dementia without behavioral disturbance (8) DVT prophylaxis Priority: Secondary Status: Acute Hospital course: Ms. Nice is an 87-year-old woman with grade 2 invasive ductal carcinoma of the right breast diagnosed in July 2016 and received neoadjuvant hormone treatment currently on Arimidex, dementia and frequent UTIs who was taken to urgent care by her daughter 4 days ago for worsening mental status fatigue and complaints of dysuria where she was diagnosed with a UTI and prescribed TMP-SMX. She is brought in now again with complaints of worsening mental status from her baseline. In the ER her UA was not suggestive of an active infection. A chest x-ray was done with the suggestion that there was a lower left lobe opacification , however her CT of chest did not show any infiltrates. Patient did have diarrhea for which we did send for G.I. panel which came back as positive for C diff infection. Patient was placed on oral vancomycin. Her diarrhea improved today. She denied any abdominal pain and tolerating oral intake well. Patient was evaluated by PT/OT who recommended ECF placement for short-term physical therapy. So will discharge her to ECF in a stable condition today. - Time Spent with Patient Total time spent providing and/or coordinating discharge services: - Discharge Medications Prescriptions: Vancomycin Oral Soln [Firvanq] 125 mg PO QID 7 Days [facility] Home Medications: Atenolol [Tenormin] 100 mg PO DAILY 10/29/15 [History] Cholecalciferol (Vitamin D3) [Vitamin D3] 2,000 unit PO DAILY 10/29/15 [History] Cranberry Fruit Extract [Cranberry] 250 mg PO BID 10/29/15 [History] Donepezil [Aricept] 10 mg PO HS 10/29/15 [History] Levothyroxine [Synthroid] 25 mcg PO DAILY 10/29/15 [History] Memantine HCl [Namenda Xr] 21 mg PO DAILY 10/29/15 [History] Ferrous Sulfate 325 mg PO BID 02/28/16 [History] Aspirin 81 mg PO DAILY tab.chew 03/02/16 [Rx] Multivit/Ca/Min/Fe/FA [Thera M Plus] 1 tab PO DAILY tablet 12/08/16 [Rx] amLODIPine [Norvasc] 5 mg PO DAILY 06/03/18 [History] Anastrozole [Arimidex] 1 mg PO DAILY 30 Days #30 tablet 06/10/18 [Rx] Promethazine [Phenergan] 25 mg PO Q6HR PRN #10 tablet 07/08/18 [Rx] Vancomycin Oral Soln [Firvanq] 125 mg PO QID 7 Days [facility] [place] 08/07/18 [Rx] Allergies/Adverse Reactions: Allergy/AdvReac Type Severity Reaction Status Date / Time ciprofloxacin [From Cipro] AdvReac Diarrhea Verified 07/29/18 16:08 Date of admission: 08/05/18 17:01 Primary care physician: PCP NONE Consults: 08/04/18 18:38 Consult to Occupational Therapy [CONS] Routine Comment: Evaluate, develop and implement POC Reason for Consult: weakness Does patient have active BEDREST order?: No Is patient medically & hemodynamically stable?: Yes Patient assessed for mobility or mobilized this visit?: No Consult to Physical Therapy [CONS] Routine Comment: Evaluate, develop and implement POC Reason for Consult: weakness Does patient have active BEDREST order?: No Is patient medically & hemodynamically stable?: Yes Patient assessed for mobility or mobilized this visit?: No 08/04/18 18:39 dietary consult [Consult to Nutrition] [CONS] Routine Comment: Consulting Provider: NUTRITION Reason for Dietary Consult: PO Supplementation - Constitutional Vitals: Temp Pulse Resp BP Pulse Ox 98.1 F 65 18 184/80 95 08/07/18 09:00 08/07/18 09:00 08/07/18 09:00 08/07/18 09:00 08/07/18 09:00 General appearance: Present: cooperative, A&O X 1, no acute distress Exam: Gen: Alert, awake, Oriented to self only.. Pleasantly demented Chest: Diminished breath sounds B/L, No wheezing, No crackles, No rales Heart: S1S2+ RRR No murmurs Abd: Soft, NT, BS +, No organomegaly Ext: No edema, pulses are palpable, No calf tenderness Neuro : Benign findings Skin: No rash. - Patient Status Disposition: Transfer SNF Condition: Good Overall status at discharge: patient is back to baseline - Discharge Instructions Follow Up With: NONE,PCP [Primary Care Provider] - - Diet and Activity Activity: as per physical therapy, increase activity as tolerated Diet: low salt diet
--- NOTE | 2018-08-07 16:08 | Physician Discharge Referral ---
ExtendedCare Referral Info Transfer To: ECF Provider in Charge after Transfer: PCP Institutional Level of Care: Skilled - Diagnosis (1) C. difficile diarrhea Status: Acute (2) Acute encephalopathy Status: Acute (3) Acute renal failure superimposed on stage 3 chronic kidney disease Status: Acute (4) Breast cancer, right Status: Acute (5) Hypokalemia Status: Acute (6) Physical deconditioning Status: Acute (7) Dementia Status: Acute (8) DVT prophylaxis Status: Acute - Transfer Medications Prescriptions: Lactobacillus Acidophilus [Acidophilus] 1 each PO BID #30 capsule Vancomycin Oral Soln [Firvanq] 125 mg PO QID 7 Days udc Home Medications: Atenolol [Tenormin] 100 mg PO DAILY 10/29/15 [History] Cholecalciferol (Vitamin D3) [Vitamin D3] 2,000 unit PO DAILY 10/29/15 [History] Cranberry Fruit Extract [Cranberry] 250 mg PO BID 10/29/15 [History] Donepezil [Aricept] 10 mg PO HS 10/29/15 [History] Levothyroxine [Synthroid] 25 mcg PO DAILY 10/29/15 [History] Memantine HCl [Namenda Xr] 21 mg PO DAILY 10/29/15 [History] Ferrous Sulfate 325 mg PO BID 02/28/16 [History] Aspirin 81 mg PO DAILY tab.chew 03/02/16 [Rx] Multivit/Ca/Min/Fe/FA [Thera M Plus] 1 tab PO DAILY tablet 12/08/16 [Rx] amLODIPine [Norvasc] 5 mg PO DAILY 06/03/18 [History] Anastrozole [Arimidex] 1 mg PO DAILY 30 Days #30 tablet 06/10/18 [Rx] Promethazine [Phenergan] 25 mg PO Q6HR PRN #10 tablet 07/08/18 [Rx] Lactobacillus Acidophilus [Acidophilus] 1 each PO BID #30 capsule 08/07/18 [Rx] Vancomycin Oral Soln [Firvanq] 125 mg PO QID 7 Days udc 08/07/18 [Rx] Allergies/Adverse Reactions: Allergy/AdvReac Type Severity Reaction Status Date / Time ciprofloxacin [From Cipro] AdvReac Diarrhea Verified 07/29/18 16:08 - Respiratory Orders Smoking Cessation: Smoking cessation has been advised. For more information, call the [place] Tobacco Quit Line at 7-395-VQDG-NOW. CERTIFICATION: I certify that the transfer of the above named patient to an Extended Care Facility is necessary for the continuing treatment of the diagnosis listed. The above information is true and accurate reflection of patient's current condition. Confidential - Redisclosure prohibited without a patient's written consent.
[2018-08-07 16:13] VITALS: BP 172/78
== END 2018-08-07 17:15 | DRG 92 ==
LOC: EMEROOARM 18:25 → 3BNU 18:25 → SUATTDRO 08-05 17:01
PROVIDERS: ADMIT Internal Medicine; ATTEND Family Medicine

== ENCOUNTER 2018-11-23 14:21 | Inpatient (IN) ==
[2018-11-23] MEDS ORDERED: Isovue-370 500 ML BOTTLE IVP ONE (14:47)
[2018-11-23] MEDS ORDERED: *HR* FentaNYL (PF) 100 MCG/2 ML VIAL IVP ONE (14:54)
[2018-11-23 15:33] LABS: Basophils % 0.4 %; Eosinophils # 0.1 K/mcL (0.0-0.6); Eosinophils % 2.4 %; Hematocrit 32.1 % (35.3-44.9); Hemoglobin 10.4 g/dL (11.5-15.4); Immature Granulocytes % 0.2 % (0-4); Lymphocytes # 0.9 K/mcL (0.6-4.6); Lymphocytes % 20.8 %; Mean Corpuscular HGB Conc 32.4 g/dL (31.6-35.5); Mean Corpuscular Hemoglobin 34.6 pg (28.0-33.3); Mean Corpuscular Volume 106.6 fL (83.0-100.0); Monocytes # 0.5 K/mcL (0.0-1.3); Monocytes % 11.5 %; Neutrophils # 2.9 K/mcL (1.6-8.9); Platelet Count 146 K/mcL (140-400); Red Blood Count 3.01 M/mcL (3.82-4.97); Red Cell Distribution Width 12.5 % (11.5-14.5); Segmented Neutrophils % 64.7 %
[2018-11-23 15:38] LABS: Bilirubin,Urine Negative (Negative); Blood,Urine Large (Negative); Clarity,Urine Cloudy (Clear); Color,Urine Yellow (Yellow); Glucose,Urine (UA) Normal (Normal); Ketones,Urine Negative (Negative); Leukocyte Esterase,Urine Large (Negative); Nitrite,Urine Negative (Negative); Protein,Urine Trace mg/dL (Neg-Trace); Specific Gravity,Urine 1.023 (1.010-1.025); Urobilinogen,Urine Normal (Normal)
--- NOTE | 2018-11-23 15:39 | Emergency Department Note ---
Disposition Clinical Impression: UTI (urinary tract infection) Qualifiers: Urinary tract infection type: acute cystitis Hematuria presence: with hematuria Qualified Code(s): N30.01 - Acute cystitis with hematuria Altered mental status Qualifiers: Altered mental status type: unspecified Qualified Code(s): R41.82 - Altered mental status, unspecified Disposition: Admitted As Inpatient Condition: Fair Referrals: NONE,PCP [Primary Care Provider] - Forms: ED Satisfaction Letter Time of Disposition: 17:22 General Adult HPI - General Chief complaint: ED Urogenital-Female Stated complaint: UTI Time Seen by Provider: 11/23/18 14:25 Source: family Limitations: altered mental status, age - History of Present Illness Pain Scale: 0 - Related Data Home Medications Medication Instructions Recorded Confirmed Atenolol [Tenormin] 100 mg PO DAILY 10/29/15 11/23/18 Cholecalciferol (Vitamin D3) 2,000 unit PO DAILY 10/29/15 11/23/18 [Vitamin D3] Cranberry Fruit Extract [Cranberry] 405 mg PO BID 10/29/15 10/03/18 Donepezil [Aricept] 10 mg PO HS 10/29/15 11/23/18 Memantine HCl [Namenda Xr] 21 mg PO DAILY 10/29/15 11/23/18 Ferrous Sulfate 325 mg PO BID 02/28/16 11/23/18 amLODIPine [Norvasc] 5 mg PO DAILY 06/03/18 11/23/18 Docusate [Colace] 100 mg PO BID 10/02/18 11/23/18 Polyethylene Glycol 3350 [MiraLAX] 17 gm PO DAILY 10/02/18 11/23/18 Ranitidine Oral Soln [Zantac] 75 mg PO BID 11/15/18 11/23/18 Boost 11/23/18 Previous Rx's Medication Instructions Recorded Aspirin 81 mg PO DAILY tab.chew 03/02/16 Multivit/Ca/Min/Fe/FA [Thera M 1 tab PO DAILY tablet 12/08/16 Plus] Anastrozole [Arimidex] 1 mg PO DAILY 30 Days #30 tablet 06/10/18 Promethazine [Phenergan] 25 mg PO Q6HR PRN #10 tablet 07/08/18 Allergies Allergy/AdvReac Type Severity Reaction Status Date / Time ciprofloxacin [From Cipro] AdvReac Diarrhea Verified 11/23/18 14:35 Past Medical History - Past Medical History Medical history: Reports: CHF, dementia, hyperlipidemia, hypertension, other Surgical history: Reports: orthopedic, other, other, vascular surgery Psychiatric history: Reports: no psych history [employer] history: Reports: non-contributory - Social History Smoking Status: Never smoker Smokeless Tobacco Status: No Alcohol use: Reports: none Drug use: Reports: none Physical Exam - General Limitations: altered mental status, age General appearance: alert, in no apparent distress Course Vital Signs Temperature 98.2 F 11/23/18 14:35 Pulse Rate 53 11/23/18 14:35 Respiratory Rate 20 11/23/18 14:35 Blood Pressure 179/64 11/23/18 14:35 O2 Sat by Pulse Oximetry 100 11/23/18 14:35 Temperature 98.2 F 11/23/18 14:35 Pulse Rate 50 11/23/18 17:18 Respiratory Rate 18 11/23/18 17:18 Blood Pressure 150/70 11/23/18 17:18 O2 Sat by Pulse Oximetry 100 11/23/18 17:18 Oxygen Delivery Oxygen Delivery Nasal Cannula Medical Decision Making - Lab Data Result diagrams: 11/23/18 15:11 11/23/18 15:11 Lab Results 11/23/18 11/23/18 11/23/18 Range/Units 15:11 15:11 15:11 WBC 4.5 (4.3-11.1) K/mcL RBC 3.01 L (3.82-4.97) M/mcL Hgb 10.4 L (11.5-15.4) g/dL Hct 32.1 L (35.3-44.9) % MCV 106.6 H (83.0-100.0) fL MCH 34.6 H (28.0-33.3) pg MCHC 32.4 (31.6-35.5) g/dL RDW 12.5 (11.5-14.5) % Plt Count 146 (140-400) K/mcL MPV 11.0 (9.4-12.4) fL Immature Gran % 0.2 (0-4) % Seg Neutrophils % 64.7 % Lymphocytes % 20.8 % Monocytes % 11.5 % Eosinophils % 2.4 % Basophils % 0.4 % Neutrophils # 2.9 (1.6-8.9) K/mcL Lymphocytes # 0.9 (0.6-4.6) K/mcL Monocytes # 0.5 (0.0-1.3) K/mcL Eosinophils # 0.1 (0.0-0.6) K/mcL Basophils # 0.0 (0.0-0.2) K/mcL PT 11.8 (9.4-12.1) Seconds INR 1.0 Sodium 142 (136-145) mEq/L Potassium 4.2 (3.5-5.1) mEq/L Chloride 108 H (98-107) mEq/L Carbon Dioxide 28 (23-29) mEq/L BUN 28 H (8-23) mg/dL Creatinine 1.34 H (0.60-1.20) mg/dL Est GFR ( Amer) 45 L (> 60) Est GFR (Non-Af Amer) 38 L (> 60) BUN/Creatinine Ratio 21 (6-26) Glucose 100 (70-105) mg/dL Calculated Osmolality 300 (280-300) Calcium 9.3 (8.6-10.3) mg/dL Total Bilirubin 0.4 (0.3-1.0) mg/dL Direct Bilirubin 0.0 (0.0-0.2) mg/dL Indirect Bilirubin 0.4 (0.0-1.2) mg/dL AST 17 (13-39) Units/L ALT 8 (7-52) Units/L Alkaline Phosphatase 71 (34-104) Units/L Ammonia (16-53) mcmol/L Troponin I 0.03 (< 0.04) ng/mL Serum Total Protein 5.6 L (6.4-8.9) g/dL Albumin 3.3 L (3.5-5.7) g/dL Globulin 2.3 L (2.4-3.5) g/dL Albumin/Globulin Ratio 1.4 (1.1-2.2) TSH 2.571 (0.340-5.600) mcIU/mL Urine Color (Yellow) Urine Clarity (Clear) Urine pH (5.0-8.0) pH Units Ur Specific Morley (1.010-1.025) Urine Protein (Neg-Trace) mg/dL Urine Glucose (UA) (Normal) mg/dL Urine Ketones (Negative) mg/dL Urine Blood (Negative) Urine Nitrite (Negative) Urine Bilirubin (Negative) Urine Urobilinogen (Normal) mg/dL Ur Leukocyte Esterase (Negative) Urine Microscopic RBC (0-3) per hpf Urine Microscopic WBC (0-3) per hpf Ur Squamous Epith Cells (None-Few) per lpf Urine Bacteria (None-Few) per hpf Hyaline Casts (None-Few) per lpf Urine Yeast (None Seen) per hpf Ur Culture Indicated? (NO) Salicylates (15.0-30.0) mg/dL Urine Opiates Screen (Nxfgmu=495) ng/mL Acetaminophen (10-20) mcg/mL Ur Barbiturates Screen (Ltvlpg=837) ng/mL Ur Phencyclidine Scrn (Cutoff=25) ng/mL Ur Amphetamines Screen (Zabepa=8164) ng/mL U Benzodiazepines Scrn (Anbfzx=493) ng/mL Urine Cocaine Screen (Cutoff= 300) ng/mL U Marijuana (THC) Screen (Cutoff = 50) ng/mL Ur Drug Screen Interp Ethyl Alcohol < 10 (Less than 10) mg/dL 11/23/18 11/23/18 11/23/18 Range/Units 15:11 15:11 15:21 WBC (4.3-11.1) K/mcL RBC (3.82-4.97) M/mcL Hgb (11.5-15.4) g/dL Hct (35.3-44.9) % MCV (83.0-100.0) fL MCH (28.0-33.3) pg MCHC (31.6-35.5) g/dL RDW (11.5-14.5) % Plt Count (140-400) K/mcL MPV (9.4-12.4) fL Immature Gran % (0-4) % Seg Neutrophils % % Lymphocytes % % Monocytes % % Eosinophils % % Basophils % % Neutrophils # (1.6-8.9) K/mcL Lymphocytes # (0.6-4.6) K/mcL Monocytes # (0.0-1.3) K/mcL Eosinophils # (0.0-0.6) K/mcL Basophils # (0.0-0.2) K/mcL PT (9.4-12.1) Seconds INR Sodium (136-145) mEq/L Potassium (3.5-5.1) mEq/L Chloride (98-107) mEq/L Carbon Dioxide (23-29) mEq/L BUN (8-23) mg/dL Creatinine (0.60-1.20) mg/dL Est GFR ( Amer) (> 60) Est GFR (Non-Af Amer) (> 60) BUN/Creatinine Ratio (6-26) Glucose (70-105) mg/dL Calculated Osmolality (280-300) Calcium (8.6-10.3) mg/dL Total Bilirubin (0.3-1.0) mg/dL Direct Bilirubin (0.0-0.2) mg/dL Indirect Bilirubin (0.0-1.2) mg/dL AST (13-39) Units/L ALT (7-52) Units/L Alkaline Phosphatase (34-104) Units/L Ammonia 32 (16-53) mcmol/L Troponin I (< 0.04) ng/mL Serum Total Protein (6.4-8.9) g/dL Albumin (3.5-5.7) g/dL Globulin (2.4-3.5) g/dL Albumin/Globulin Ratio (1.1-2.2) TSH (0.340-5.600) mcIU/mL Urine Color Yellow (Yellow) Urine Clarity Cloudy A (Clear) Urine pH 5.0 (5.0-8.0) pH Units Ur Specific Morley 1.023 (1.010-1.025) Urine Protein Trace (Neg-Trace) mg/dL Urine Glucose (UA) Normal (Normal) mg/dL Urine Ketones Negative (Negative) mg/dL Urine Blood Large H (Negative) Urine Nitrite Negative (Negative) Urine Bilirubin Negative (Negative) Urine Urobilinogen Normal (Normal) mg/dL Ur Leukocyte Esterase Large H (Negative) Urine Microscopic RBC 0-3 (0-3) per hpf Urine Microscopic WBC TNTC H (0-3) per hpf Ur Squamous Epith Cells Many H (None-Few) per lpf Urine Bacteria Few (None-Few) per hpf Hyaline Casts None Seen (None-Few) per lpf Urine Yeast Many H (None Seen) per hpf Ur Culture Indicated? NO. A (NO) Salicylates < 2.5 L (15.0-30.0) mg/dL Urine Opiates Screen (Nmpcfc=016) ng/mL Acetaminophen < 10 L (10-20) mcg/mL Ur Barbiturates Screen (Aujmug=722) ng/mL Ur Phencyclidine Scrn (Cutoff=25) ng/mL Ur Amphetamines Screen (Uwfgrt=2548) ng/mL U Benzodiazepines Scrn (Skmjvh=028) ng/mL Urine Cocaine Screen (Cutoff= 300) ng/mL U Marijuana (THC) Screen (Cutoff = 50) ng/mL Ur Drug Screen Interp Ethyl Alcohol (Less than 10) mg/dL 11/23/18 Range/Units 15:21 WBC (4.3-11.1) K/mcL RBC (3.82-4.97) M/mcL Hgb (11.5-15.4) g/dL Hct (35.3-44.9) % MCV (83.0-100.0) fL MCH (28.0-33.3) pg MCHC (31.6-35.5) g/dL RDW (11.5-14.5) % Plt Count (140-400) K/mcL MPV (9.4-12.4) fL Immature Gran % (0-4) % Seg Neutrophils % % Lymphocytes % % Monocytes % % Eosinophils % % Basophils % % Neutrophils # (1.6-8.9) K/mcL Lymphocytes # (0.6-4.6) K/mcL Monocytes # (0.0-1.3) K/mcL Eosinophils # (0.0-0.6) K/mcL Basophils # (0.0-0.2) K/mcL PT (9.4-12.1) Seconds INR Sodium (136-145) mEq/L Potassium (3.5-5.1) mEq/L Chloride (98-107) mEq/L Carbon Dioxide (23-29) mEq/L BUN (8-23) mg/dL Creatinine (0.60-1.20) mg/dL Est GFR ( Amer) (> 60) Est GFR (Non-Af Amer) (> 60) BUN/Creatinine Ratio (6-26) Glucose (70-105) mg/dL Calculated Osmolality (280-300) Calcium (8.6-10.3) mg/dL Total Bilirubin (0.3-1.0) mg/dL Direct Bilirubin (0.0-0.2) mg/dL Indirect Bilirubin (0.0-1.2) mg/dL AST (13-39) Units/L ALT (7-52) Units/L Alkaline Phosphatase (34-104) Units/L Ammonia (16-53) mcmol/L Troponin I (< 0.04) ng/mL Serum Total Protein (6.4-8.9) g/dL Albumin (3.5-5.7) g/dL Globulin (2.4-3.5) g/dL Albumin/Globulin Ratio (1.1-2.2) TSH (0.340-5.600) mcIU/mL Urine Color (Yellow) Urine Clarity (Clear) Urine pH (5.0-8.0) pH Units Ur Specific Morley (1.010-1.025) Urine Protein (Neg-Trace) mg/dL Urine Glucose (UA) (Normal) mg/dL Urine Ketones (Negative) mg/dL Urine Blood (Negative) Urine Nitrite (Negative) Urine Bilirubin (Negative) Urine Urobilinogen (Normal) mg/dL Ur Leukocyte Esterase (Negative) Urine Microscopic RBC (0-3) per hpf Urine Microscopic WBC (0-3) per hpf Ur Squamous Epith Cells (None-Few) per lpf Urine Bacteria (None-Few) per hpf Hyaline Casts (None-Few) per lpf Urine Yeast (None Seen) per hpf Ur Culture Indicated? (NO) Salicylates (15.0-30.0) mg/dL Urine Opiates Screen Negative (Slaksl=143) ng/mL Acetaminophen (10-20) mcg/mL Ur Barbiturates Screen Negative (Tpgivr=443) ng/mL Ur Phencyclidine Scrn Negative (Cutoff=25) ng/mL Ur Amphetamines Screen Negative (Ufghmc=4399) ng/mL U Benzodiazepines Scrn Negative (Srnwvb=830) ng/mL Urine Cocaine Screen Negative (Cutoff= 300) ng/mL U Marijuana (THC) Screen Negative (Cutoff = 50) ng/mL Ur Drug Screen Interp See Below Ethyl Alcohol (Less than 10) mg/dL Attestation Statement - Attestation Attestation: I, Arpan Storm DO, examined this patient [id number] and my medical decision-making was reviewed with Dr. Yvon Chow, Resident Physician. I agree with the documented findings, disposition and treatment plan as described except to the extent set forth below. I personally supervised and was present for the arana/critical portions of the procedures completed by the resident documented below. Please see my progress notes for details. 88-year-old female presents emergency room for evaluation of confusion. Patient has had worsening of her baseline dementia home. The daughter says that this happens every time she gets a urinary tract infection. She was seen evaluated and diagnosed with urinary tract infection almost 1 week ago. She been taking antibiotics as they are prescribed. She has had worsening symptoms since of this week. She is seen in urgent care today and they confirm that she still had a urinary tract infection and were concerned about possible septic-like presentation. They recommended that she come to the emergency room for evaluation and management. Patient is pleasantly demented. She denies med st pain or shortness of breath and the daughter says that she has not had any complaints of these at home. She has not had any nausea vomiting or diarrhea according to the daughter. No fevers or chills noted. On physical exam the patient is resting in the bed lying flat. Mucous membranes are moist. Head is atraumatic. Pupils are equal and reactive. Oropharynx is patent. Lungs are clear heart is regular. Abdomen is soft with the patient does wince and grimace with palpation across the entire abdomen at this time. No specific point tenderness guarding or rigidity noted on exam. Extremities are otherwise normal. No visible signs of facial asymmetry or abnormality. Neurologic evalua tion is at baseline according to the daughter says that she is acting appropriate or at her baseline at this point. Detailed workup including urinalysis blood cultures CBC chemistry liver function testing will be collected along with CT imaging the abdomen and CT of the head. EKG will also be resu lted. Chest x-ray will be ordered if needed. Patient otherwise clinically stable despite some decline or progression of her dementia this time. Patient will be monitored here in the emergency department until the treatment course is established. See detailed documentation of the physical exam, medical intervention, medical decision-making and disposition in the resident physician's note. No critical care provider the patient's treatment course at this time. [id number] Patient has urine that is concerning for infection. CT scan shows bilateral nephrolithiasis with no obstruction. Patient does have stable baseline labs at this point. At this time, the presentation is most consistent with progression of her dementia exacerbated by her urinary tract infection. She has completed an outpatient antibiotic regiment with Macrobid with no significant relief in his presenting here today with worsening confusion and persistent symptoms. Patient otherwise has no other acute findings. Discussion will be had with the patient and the family about possible admission for monitoring to make sure that the symptoms resolved. The patient is otherwise clinical stable. Patient was discussed with the hospitalist Dr. Roman. Detailed review the presentation symptoms medical intervention as well as recommendations and findings were noted. No other acute concerns or issues noted during this initial treatment course and evaluation. She is otherwise clinically stable at this time. Patient will be monitoring emergency room until admission process is completed. Patient family was informed and comfortable this plan.
[2018-11-23 15:40] LABS: Prothrombin Time 11.8 Seconds (9.4-12.1)
[2018-11-23 15:42] LABS: Hyaline Casts,Urine None Seen per lpf (None-Few); Squamous Epithelial Cell,Urine Many per lpf (None-Few); WBC,Urine TNTC per hpf (0-3)
[2018-11-23 15:43] LABS: Acetaminophen < 10 mcg/mL (10-20); Salicylate < 2.5 mg/dL (15.0-30.0)
[2018-11-23 15:49] LABS: Amphetamine Screen,Urine Negative ng/mL (Cutoff=1000); Barbiturate Screen,Urine Negative ng/mL (Cutoff=200); Benzodiazepines Screen,Urine Negative ng/mL (Cutoff=200); Cannabinoid Screen,Urine Negative ng/mL (Cutoff = 50); Cocaine Screen,Urine Negative ng/mL (Cutoff= 300); Opiate Screen,Urine Negative ng/mL (Cutoff=300); Phencyclidine Screen,Urine Negative ng/mL (Cutoff=25)
[2018-11-23 15:52] LABS: Alanine Aminotransferase 8 Units/L (7-52); Albumin 3.3 g/dL (3.5-5.7); Albumin/Globulin Ratio 1.4 (1.1-2.2); Alkaline Phosphatase 71 Units/L (34-104); Aspartate Amino Transferase 17 Units/L (13-39); BUN/Creatinine Ratio 21 (6-26); Bilirubin,Indirect 0.4 mg/dL (0.0-1.2); Bilirubin,Total 0.4 mg/dL (0.3-1.0); Blood Urea Nitrogen 28 mg/dL (8-23); Calcium 9.3 mg/dL (8.6-10.3); Carbon Dioxide 28 mEq/L (23-29); Chloride 108 mEq/L (98-107); Ethanol < 10 mg/dL (Less than 10); Globulin 2.3 g/dL (2.4-3.5); Glucose 100 mg/dL (70-105); Osmolality,Calculated 300 (280-300); Potassium 4.2 mEq/L (3.5-5.1); Sodium 142 mEq/L (136-145); Total Protein 5.6 g/dL (6.4-8.9); Troponin I 0.03 ng/mL (< 0.04); eGFR For Non-African Americans 38 (> 60)
[2018-11-23 16:06] LABS: Bacteria,Urine Few per hpf (None-Few); Yeast,Urine Many per hpf (None Seen)
[2018-11-23 16:06] LABS: Thyroid Stimulating Hormone 2.571 mcIU/mL (0.340-5.600)
[2018-11-23 16:07] LABS: RBC,Urine 0-3 per hpf (0-3)
[2018-11-23] MEDS ORDERED: cefTRIAXone 1,000 MG in Water for inj. (sterile) 20 ML 10 ML IVP ONE (16:53)
--- NOTE | 2018-11-23 16:59 | Emergency Department Note ---
Disposition Clinical Impression: UTI (urinary tract infection) Qualifiers: Urinary tract infection type: acute cystitis Hematuria presence: with hematuria Qualified Code(s): N30.01 - Acute cystitis with hematuria Altered mental status Qualifiers: Altered mental status type: unspecified Qualified Code(s): R41.82 - Altered mental status, unspecified Disposition: Admitted As Inpatient Condition: Fair Referrals: NONE,PCP [Primary Care Provider] - Forms: ED Satisfaction Letter Time of Disposition: 17:23 General Adult HPI - General Chief complaint: ED Urogenital-Female Stated complaint: UTI Time Seen by Provider: 11/23/18 14:25 Source: family Limitations: altered mental status, age Nursing Notes Reviewed: Yes Vital Signs Reviewed: Yes - History of Present Illness HPI Narrative: 88 year old female presents emergency department with concern for altered mental status and possible urinary tract infection. Daughter reports that since last Sunday, patient has been acting a little more looney. She states that she talks less than she normally does and when she does talk, she says things that do not make sense.. Denies any trauma or anything. Reports that she was started on Macrobid recently. Patient complained of lower abdominal pain and back pain to her daughter. No fevers, nausea, vomiting. Has reported some dysuria to daughter. Pain Scale: 0 - Related Data Home Medications Medication Instructions Recorded Confirmed Atenolol [Tenormin] 100 mg PO DAILY 10/29/15 11/23/18 Cholecalciferol (Vitamin D3) 2,000 unit PO DAILY 10/29/15 11/23/18 [Vitamin D3] Cranberry Fruit Extract [Cranberry] 405 mg PO BID 10/29/15 10/03/18 Donepezil [Aricept] 10 mg PO HS 10/29/15 11/23/18 Memantine HCl [Namenda Xr] 21 mg PO DAILY 10/29/15 11/23/18 Ferrous Sulfate 325 mg PO BID 02/28/16 11/23/18 amLODIPine [Norvasc] 5 mg PO DAILY 06/03/18 11/23/18 Docusate [Colace] 100 mg PO BID 10/02/18 11/23/18 Polyethylene Glycol 3350 [MiraLAX] 17 gm PO DAILY 10/02/18 11/23/18 Ranitidine Oral Soln [Zantac] 75 mg PO BID 11/15/18 11/23/18 Boost 11/23/18 Previous Rx's Medication Instructions Recorded Aspirin 81 mg PO DAILY tab.chew 03/02/16 Multivit/Ca/Min/Fe/FA [Thera M 1 tab PO DAILY tablet 12/08/16 Plus] Anastrozole [Arimidex] 1 mg PO DAILY 30 Days #30 tablet 06/10/18 Promethazine [Phenergan] 25 mg PO Q6HR PRN #10 tablet 07/08/18 Allergies Allergy/AdvReac Type Severity Reaction Status Date / Time ciprofloxacin [From Cipro] AdvReac Diarrhea Verified 11/23/18 14:35 All systems ED: reviewed and negative except as stated. Review of Systems: As Per HPI Constitutional: Denies: fever Cardiovascular: Denies: chest pain Respiratory: Denies: dyspnea Gastrointestinal: Reports: abdominal pain. Denies: nausea, vomiting Genitourinary: Reports: dysuria. Denies: urgency, frequency Musculoskeletal: Denies: back pain Integumentary: Denies: rash Past Medical History - Past Medical History Attestation: Yes The following information was validated with the patient. Medical history: Reports: CHF, dementia, hyperlipidemia, hypertension, other Surgical history: Reports: orthopedic, other, other, vascular surgery Psychiatric history: Reports: no psych history [employer] history: Reports: non-contributory - Social History Smoking Status: Never smoker Smokeless Tobacco Status: No Alcohol use: Reports: none Drug use: Reports: none Physical Exam - General Limitations: altered mental status, age General appearance: alert, in no apparent distress - Head Head exam: normocephalic - Eye Eye exam: Present: EOMI - ENT ENT exam: mucous membranes moist - Neck Neck exam: Present: trachea midline - Chest Chest inspection: Present: symmetric chest wall rise - Respiratory Respiratory exam: Present: normal lung sounds bilaterally. Absent: respiratory distress, accessory muscle use - Cardiovascular Cardiovascular exam: Present: normal rhythm, bradycardia - Abdominal Exam Abdominal exam: Present: soft, tenderness. Absent: distention, guarding, r ebound, rigidity Abdominal tenderness: Present: suprapubic, moderate - Extremities Exam Extremities exam: Present: normal capillary refill - Back Exam Back exam: Present: full ROM - Neurological Exam Neurological exam: Present: other (No focal neurologic deficits appreciated on physical exam, patient answering some questions, but not all. GCS 15, NIH 0) - Psychiatric Psychiatric exam: Present: normal affect, normal mood - Skin Skin exam: Present: warm, dry, intact, normal color. Absent: rash Course Vital Signs Temperature 98.2 F 11/23/18 14:35 Pulse Rate 53 11/23/18 14:35 Respiratory Rate 20 11/23/18 14:35 Blood Pressure 179/64 11/23/18 14:35 O2 Sat by Pulse Oximetry 100 11/23/18 14:35 Temperature 98.2 F 11/23/18 14:35 Pulse Rate 53 11/23/18 14:35 Respiratory Rate 20 11/23/18 14:35 Blood Pressure 179/64 11/23/18 14:35 O2 Sat by Pulse Oximetry 100 11/23/18 14:35 Oxygen Delivery Oxygen Delivery Room Air Medical Decision Making - MDM Narrative Medical decision making narrative: A social female with altered mental status. Hemodynamically stable not in acute distress. She had suprapubic abdominal tenderness and bilateral flank tenderness on physical exam. Obtain CT scan of abdomen and pelvis. No acute intra-abdominal or pelvic abnormality concerning for need for surgery. There was evidence of small bilateral pleural effusions that were new. Patient has chronic kidney disease, no new renal insufficiency. Hemoglobin within her normal levels. We gave Rocephin for urinary tract infection. We obtained blood cultures prior to administration of antimicrobials. Patient admitted to the hospitalist for further management of her altered status in setting of urinary tract infection. - Lab Data Result diagrams: 11/23/18 15:11 11/23/18 15:11 Lab Results 11/23/18 11/23/18 11/23/18 Range/Units 15:11 15:11 15:11 WBC 4.5 (4.3-11.1) K/mcL RBC 3.01 L (3.82-4.97) M/mcL Hgb 10.4 L (11.5-15.4) g/dL Hct 32.1 L (35.3-44.9) % MCV 106.6 H (83.0-100.0) fL MCH 34.6 H (28.0-33.3) pg MCHC 32.4 (31.6-35.5) g/dL RDW 12.5 (11.5-14.5) % Plt Count 146 (140-400) K/mcL MPV 11.0 (9.4-12.4) fL Immature Gran % 0.2 (0-4) % Seg Neutrophils % 64.7 % Lymphocytes % 20.8 % Monocytes % 11.5 % Eosinophils % 2.4 % Basophils % 0.4 % Neutrophils # 2.9 (1.6-8.9) K/mcL Lymphocytes # 0.9 (0.6-4.6) K/mcL Monocytes # 0.5 (0.0-1.3) K/mcL Eosinophils # 0.1 (0.0-0.6) K/mcL Basophils # 0.0 (0.0-0.2) K/mcL PT 11.8 (9.4-12.1) Seconds INR 1.0 Sodium 142 (136-145) mEq/L Potassium 4.2 (3.5-5.1) mEq/L Chloride 108 H (98-107) mEq/L Carbon Dioxide 28 (23-29) mEq/L BUN 28 H (8-23) mg/dL Creatinine 1.34 H (0.60-1.20) mg/dL Est GFR ( Amer) 45 L (> 60) Est GFR (Non-Af Amer) 38 L (> 60) BUN/Creatinine Ratio 21 (6-26) Glucose 100 (70-105) mg/dL Calculated Osmolality 300 (280-300) Calcium 9.3 (8.6-10.3) mg/dL Total Bilirubin 0.4 (0.3-1.0) mg/dL Direct Bilirubin 0.0 (0.0-0.2) mg/dL Indirect Bilirubin 0.4 (0.0-1.2) mg/dL AST 17 (13-39) Units/L ALT 8 (7-52) Units/L Alkaline Phosphatase 71 (34-104) Units/L Ammonia (16-53) mcmol/L Troponin I 0.03 (< 0.04) ng/mL Serum Total Protein 5.6 L (6.4-8.9) g/dL Albumin 3.3 L (3.5-5.7) g/dL Globulin 2.3 L (2.4-3.5) g/dL Albumin/Globulin Ratio 1.4 (1.1-2.2) TSH 2.571 (0.340-5.600) mcIU/mL Urine Color (Yellow) Urine Clarity (Clear) Urine pH (5.0-8.0) pH Units Ur Specific [employer] (1.010-1.025) Urine Protein (Neg-Trace) mg/dL Urine Glucose (UA) (Normal) mg/dL Urine Ketones (Negative) mg/dL Urine Blood (Negative) Urine Nitrite (Negative) Urine Bilirubin (Negative) Urine Urobilinogen (Normal) mg/dL Ur Leukocyte Esterase (Negative) Urine Microscopic RBC (0-3) per hpf Urine Microscopic WBC (0-3) per hpf Ur Squamous Epith Cells (None-Few) per lpf Urine Bacteria (None-Few) per hpf Hyaline Casts (None-Few) per lpf Urine Yeast (None Seen) per hpf Ur Culture Indicated? (NO) Salicylates (15.0-30.0) mg/dL Urine Opiates Screen (Pxobrg=818) ng/mL Acetaminophen (10-20) mcg/mL Ur Barbiturates Screen (Evjeoi=830) ng/mL Ur Phencyclidine Scrn (Cutoff=25) ng/mL Ur Amphetamines Screen (Oksohl=4310) ng/mL U Benzodiazepines Scrn (Cwteoi=430) ng/mL Urine Cocaine Screen (Cutoff= 300) ng/mL U Marijuana (THC) Screen (Cutoff = 50) ng/mL Ur Drug Screen Interp Ethyl Alcohol < 10 (Less than 10) mg/dL 11/23/18 11/23/18 11/23/18 Range/Units 15:11 15:11 15:21 WBC (4.3-11.1) K/mcL RBC (3.82-4.97) M/mcL Hgb (11.5-15.4) g/dL Hct (35.3-44.9) % MCV (83.0-100.0) fL MCH (28.0-33.3) pg MCHC (31.6-35.5) g/dL RDW (11.5-14.5) % Plt Count (140-400) K/mcL MPV (9.4-12.4) fL Immature Gran % (0-4) % Seg Neutrophils % % Lymphocytes % % Monocytes % % Eosinophils % % Basophils % % Neutrophils # (1.6-8.9) K/mcL Lymphocytes # (0.6-4.6) K/mcL Monocytes # (0.0-1.3) K/mcL Eosinophils # (0.0-0.6) K/mcL Basophils # (0.0-0.2) K/mcL PT (9.4-12.1) Seconds INR Sodium (136-145) mEq/L Potassium (3.5-5.1) mEq/L Chloride (98-107) mEq/L Carbon Dioxide (23-29) mEq/L BUN (8-23) mg/dL Creatinine (0.60-1.20) mg/dL Est GFR ( Amer) (> 60) Est GFR (Non-Af Amer) (> 60) BUN/Creatinine Ratio (6-26) Glucose (70-105) mg/dL Calculated Osmolality (280-300) Calcium (8.6-10.3) mg/dL Total Bilirubin (0.3-1.0) mg/dL Direct Bilirubin (0.0-0.2) mg/dL Indirect Bilirubin (0.0-1.2) mg/dL AST (13-39) Units/L ALT (7-52) Units/L Alkaline Phosphatase (34-104) Units/L Ammonia 32 (16-53) mcmol/L Troponin I (< 0.04) ng/mL Serum Total Protein (6.4-8.9) g/dL Albumin (3.5-5.7) g/dL Globulin (2.4-3.5) g/dL Albumin/Globulin Ratio (1.1-2.2) TSH (0.340-5.600) mcIU/mL Urine Color Yellow (Yellow) Urine Clarity Cloudy A (Clear) Urine pH 5.0 (5.0-8.0) pH Units Ur Specific [employer] 1.023 (1.010-1.025) Urine Protein Trace (Neg-Trace) mg/dL Urine Glucose (UA) Normal (Normal) mg/dL Urine Ketones Negative (Negative) mg/dL Urine Blood Large H (Negative) Urine Nitrite Negative (Negative) Urine Bilirubin Negative (Negative) Urine Urobilinogen Normal (Normal) mg/dL Ur Leukocyte Esterase Large H (Negative) Urine Microscopic RBC 0-3 (0-3) per hpf Urine Microscopic WBC TNTC H (0-3) per hpf Ur Squamous Epith Cells Many H (None-Few) per lpf Urine Bacteria Few (None-Few) per hpf Hyaline Casts None Seen (None-Few) per lpf Urine Yeast Many H (None Seen) per hpf Ur Culture Indicated? NO. A (NO) Salicylates < 2.5 L (15.0-30.0) mg/dL Urine Opiates Screen (Gbwgcz=271) ng/mL Acetaminophen < 10 L (10-20) mcg/mL Ur Barbiturates Screen (Qtgqsq=778) ng/mL Ur Phencyclidine Scrn (Cutoff=25) ng/mL Ur Amphetamines Screen (Clnvvn=3794) ng/mL U Benzodiazepines Scrn (Eowkmn=859) ng/mL Urine Cocaine Screen (Cutoff= 300) ng/mL U Marijuana (THC) Screen (Cutoff = 50) ng/mL Ur Drug Screen Interp Ethyl Alcohol (Less than 10) mg/dL 11/23/18 Range/Units 15:21 WBC (4.3-11.1) K/mcL RBC (3.82-4.97) M/mcL Hgb (11.5-15.4) g/dL Hct (35.3-44.9) % MCV (83.0-100.0) fL MCH (28.0-33.3) pg MCHC (31.6-35.5) g/dL RDW (11.5-14.5) % Plt Count (140-400) K/mcL MPV (9.4-12.4) fL Immature Gran % (0-4) % Seg Neutrophils % % Lymphocytes % % Monocytes % % Eosinophils % % Basophils % % Neutrophils # (1.6-8.9) K/mcL Lymphocytes # (0.6-4.6) K/mcL Monocytes # (0.0-1.3) K/mcL Eosinophils # (0.0-0.6) K/mcL Basophils # (0.0-0.2) K/mcL PT (9.4-12.1) Seconds INR Sodium (136-145) mEq/L Potassium (3.5-5.1) mEq/L Chloride (98-107) mEq/L Carbon Dioxide (23-29) mEq/L BUN (8-23) mg/dL Creatinine (0.60-1.20) mg/dL Est GFR ( Amer) (> 60) Est GFR (Non-Af Amer) (> 60) BUN/Creatinine Ratio (6-26) Glucose (70-105) mg/dL Calculated Osmolality (280-300) Calcium (8.6-10.3) mg/dL Total Bilirubin (0.3-1.0) mg/dL Direct Bilirubin (0.0-0.2) mg/dL Indirect Bilirubin (0.0-1.2) mg/dL AST (13-39) Units/L ALT (7-52) Units/L Alkaline Phosphatase (34-104) Units/L Ammonia (16-53) mcmol/L Troponin I (< 0.04) ng/mL Serum Total Protein (6.4-8.9) g/dL Albumin (3.5-5.7) g/dL Globulin (2.4-3.5) g/dL Albumin/Globulin Ratio (1.1-2.2) TSH (0.340-5.600) mcIU/mL Urine Color (Yellow) Urine Clarity (Clear) Urine pH (5.0-8.0) pH Units Ur Specific [employer] (1.010-1.025) Urine Protein (Neg-Trace) mg/dL Urine Glucose (UA) (Normal) mg/dL Urine Ketones (Negative) mg/dL Urine Blood (Negative) Urine Nitrite (Negative) Urine Bilirubin (Negative) Urine Urobilinogen (Normal) mg/dL Ur Leukocyte Esterase (Negative) Urine Microscopic RBC (0-3) per hpf Urine Microscopic WBC (0-3) per hpf Ur Squamous Epith Cells (None-Few) per lpf Urine Bacteria (None-Few) per hpf Hyaline Casts (None-Few) per lpf Urine Yeast (None Seen) per hpf Ur Culture Indicated? (NO) Salicylates (15.0-30.0) mg/dL Urine Opiates Screen Negative (Tbtlsk=816) ng/mL Acetaminophen (10-20) mcg/mL Ur Barbiturates Screen Negative (Rjlcar=105) ng/mL Ur Phencyclidine Scrn Negative (Cutoff=25) ng/mL Ur Amphetamines Screen Negative (Iucpcx=8229) ng/mL U Benzodiazepines Scrn Negative (Rsjyoz=334) ng/mL Urine Cocaine Screen Negative (Cutoff= 300) ng/mL U Marijuana (THC) Screen Negative (Cutoff = 50) ng/mL Ur Drug Screen Interp See Below Ethyl Alcohol (Less than 10) mg/dL Attestation Statement - Attestation Attestation: I, Arpan Storm DO, examined this patient [id number] and my medical decision-making was reviewed with Dr. Yvon Chow, Resident Physician. I agree with the documented findings, disposition and treatment plan as described except to the extent set forth below. I personally supervised and was present for the arana/critical portions of the procedures completed by the resident documented below. Please see my progress notes for details.
--- NOTE | 2018-11-23 18:09 | Internal Med History&Physical ---
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 difficile infections, dementia, CKD 3 and chronic diastolic heart failure who presents with daughter secondary to patient having altered mental status. Patient not able to give history due to dementia and confusion but daughter who is at bedside states that patient usually gets confused above her baseline when she gets UTI. Daughter states that patient has been complaining of dysuria so she decided to bring her in the ER for further evaluation. Apparently she has recently been treated at the urgent care on 11/09/18 on Levaquin for UTI. She also recently admitted at [facility] found to have urine cultures positive for enterococcus faecalis and on prior admission on 10/03/18 she was found to have urine cultures positive for Enterobacter cloacae complex. In the ER today, patient found to have pyuria on urinalysis without leukocytosis and afebrile. Blood cultures and urine cultures were sent from the ER and patient was given 1 dose of IV ceftriaxone for suspected UTI. Patient will be admitted to the observation unit for suspected UTI while awaiting sensitivities for cultures. Past Med Surg Social Fam HX - Past Medical History Medical history: CHF, dementia, hyperlipidemia, hypertension, other Additional medical history: Kidney disease, heart problems Psychiatric history: no psych history - Past Surgical History Surgical History: orthopedic, other, other, vascular surgery Additional surgical history: vein stripping. left wrist - Social History Smoking Status: Never smoker Smokeless Tobacco Status: No Alcohol use: none Drug use: none - Family History Mother Living Status: Hx Family Cardiac Disorders: (CHF) Internal Medicine - H&P: Meds Atenolol [Tenormin] 100 mg PO DAILY 10/29/15 [History] Cranberry Fruit Extract [Cranberry] 405 mg PO BID 10/29/15 [History] Donepezil [Aricept] 10 mg PO HS 10/29/15 [History] Ferrous Sulfate 325 mg PO BID 02/28/16 [History] Aspirin 81 mg PO DAILY tab.chew 03/02/16 [Rx] amLODIPine [Norvasc] 5 mg PO DAILY 06/03/18 [History] Anastrozole [Arimidex] 1 mg PO DAILY 30 Days #30 tablet 06/10/18 [Rx] Docusate [Colace] 100 mg PO BID 10/02/18 [History] Boost 65 mg PO DAILY 11/23/18 [History] Cholecalciferol (D-3) [Vitamin D] 5,000 unit PO DAILY 11/23/18 [History] Levothyroxine Sodium [Levo-T] 25 mcg PO DAILY 11/23/18 [History] Memantine HCl [Namenda Xr] 21 mg PO DAILY 11/23/18 [History] Multivit-Min/FA/Lycopen/Lutein [Adults 50+ Multivitamin Tablet] 1 each PO DAILY 11/23/18 [History] Polyethylene Glycol 3350 [MiraLAX] 17 gm PO DAILY 11/23/18 [History] Promethazine [Phenergan] 25 mg PO DAILY 11/23/18 [History] Zantac 75 75 mg pe PO HS 11/23/18 [History] Allergy/AdvReac Type Severity Reaction Status Date / Time ciprofloxacin [From Cipro] AdvReac Diarrhea Verified 11/23/18 14:35 ROS unobtainable: due to mental status All Systems PM: A 10-system review of systems was performed and is negative for pertinent findings except as documented above in the HPI. - Constitutional Vitals: Temp Pulse Resp BP Pulse Ox 98.2 F 50 18 150/70 100 11/23/18 14:35 11/23/18 17:18 11/23/18 17:18 11/23/18 17:18 11/23/18 17:18 Exam: General appearance: Present: A&O X 1, no acute distress - Head Head exam: Present: normocephalic - Eye Eye exam: Present: normal appearance - ENT ENT exam: Present: mucous membranes moist - Respiratory Respiratory exam: Present: CTAB. Absent: accessory muscle use, rales, rhonchi, wheezes - Cardiovascular Cardiovascular exam: Present: RRR, +S1, +S2. Absent: diastolic murmur, gallop, rubs, systolic murmur - GI/Abdominal GI/Abdominal exam: Present: normal bowel sounds, soft, no peritoneal signs. Absent: distended, tenderness - Extremities Exam Extremities exam: Absent: pedal edema - Neurological Exam Neurological exam: Present: alert, oriented X3, no focal deficits. Absent: altered - Psychiatric Psychiatric exam: -normal mood Skin exam: -normal color Internal Med - H&P Results - Labs CBC & Chem 7: 11/23/18 15:11 11/23/18 15:11 Labs: Short CBC 11/23/18 Range/Units 15:11 WBC 4.5 (4.3-11.1) K/mcL Hgb 10.4 L (11.5-15.4) g/dL Hct 32.1 L (35.3-44.9) % Plt Count 146 (140-400) K/mcL Neutrophils # 2.9 (1.6-8.9) K/mcL BMP 11/23/18 15:11 Sodium 142 Potassium 4.2 Chloride 108 H Carbon Dioxide 28 BUN 28 H Creatinine 1.34 H Glucose 100 Calcium 9.3 Cardiac Enzymes 11/23/18 Range/Units 15:11 Troponin I 0.03 (< 0.04) ng/mL Liver Function 11/23/18 Range/Units 15:11 Total Bilirubin 0.4 (0.3-1.0) mg/dL Direct Bilirubin 0.0 (0.0-0.2) mg/dL AST 17 (13-39) Units/L ALT 8 (7-52) Units/L Alkaline Phosphatase 71 (34-104) Units/L Albumin 3.3 L (3.5-5.7) g/dL Urine 11/23/18 Range/Units 15:21 Urine Color Yellow (Yellow) Urine Clarity Cloudy A (Clear) Urine pH 5.0 (5.0-8.0) pH Units Ur Specific [place] 1.023 (1.010-1.025) Urine Protein Trace (Neg-Trace) mg/dL Urine Glucose (UA) Normal (Normal) mg/dL - Impressions ITS Impressions Abdomen/Pelvis CT 11/23/18 14:47 IMPRESSION: 1. New trace bilateral pleural effusions. 2. Redemonstration of bilateral nonobstructing renal calculi including a 4 mm left renal pelvis calculus which was previously intrarenal.. 3. No bowel obstruction. D/ / Danyel Gordillo MD / Danyel Gordillo MD Interpreting Provider: Danyel Gordillo MD Chest X-Ray 11/23/18 14:49 IMPRESSION: No acute abnormality detected. D/ / Matty Mathew MD / Matty Mathew MD Interpreting Provider: Matty Mathew MD Head CT 11/23/18 14:50 IMPRESSION: No acute intracranial abnormality detected. D/ / Matty Mathew MD / Matty Mathew MD Interpreting Provider: Matty Mathew MD - Assessment and Plan (1) UTI (urinary tract infection) Current Visit: Yes Status: Acute Assessment and plan: Apparently she has recently been treated at the urgent care on 11/09/18 on Levaquin for UTI. Patient also recently admitted at [facility] found to have urine cultures positive for enterococcus faecalis and on prior admission on 10/03/18 she was found to have urine cultures positive for Enterobacter cloacae complex. In the ER today, patient found to have pyuria on urinalysis without leukocytosis and afebrile. Blood cultures and urine cultures were sent from the ER Will continue IV ceftriaxone started in the ER for suspected UTI and await sen sitivities for cultures. Qualifiers: Urinary tract infection type: acute cystitis Hematuria presence: with hematuria Qualified Code(s): N30.01 - Acute cystitis with hematuria (2) Acute encephalopathy Current Visit: No Status: Acute Assessment and plan: Patient has confusion above baseline dementia per daughter suspect secondary to UTI above Continue to monitor (3) Breast cancer, right Current Visit: No Status: Acute Assessment and plan: Patient with past medical history significant for right breast invasive ductal c arcinoma (HER 2+) on Arimidex managed by hematology/oncology as an outpatient Qualifiers: Qualified Code(s): C50.911 - Malignant neoplasm of unspecified site of right female breast (4) CKD (chronic kidney disease) stage 4, GFR 15-29 ml/min Current Visit: No Status: Acute Assessment and plan: Stable; continue to monitor (5) Chronic diastolic heart failure Current Visit: No Status: Acute Assessment and plan: Patient euvolemic; continue home medications (6) Dementia Current Visit: No Status: Acute Assessment and plan: Continue home medications Qualifiers: Qualified Code(s): F01.50 - 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 disturbance (7) Anemia Current Visit: No Status: Chronic Assessment and plan: Hemoglobin at baseline and stable; continue to monitor Qualifiers: Qualified Code(s): D64.9 - Anemia, unspecified (8) Essential (primary) hypertension Current Visit: No Status: Chronic Assessment and plan: Continue home medications (9) Hyperlipidemia Current Visit: No Status: Chronic Assessment and plan: Continue home medications Qualifiers: Hyperlipidemia type: unspecified Qualified Code(s): E78.5 - Hyperlipidemia, unspecified (10) DVT prophylaxis Current Visit: No Status: Acute Assessment and plan: Subcutaneous heparin - Time Spent With Patient Total time spent is greater than 50% in coordination of care (as documented) at patient's floor/unit and/or counseling patient:
[2018-11-23] MEDS ORDERED: Naloxone 0.4 MG/ML INJ IVP PRN (18:16)
[2018-11-23] MEDS: CRANBERRY FRUIT EXTRACT 405 MG PO SCH (23:30)
[2018-11-23] MEDS: Famotidine 20 MG TABLET PO SCH (23:31)
[2018-11-24 05:23] LABS: Basophils % 0.5 %; Eosinophils # 0.2 K/mcL (0.0-0.6); Eosinophils % 4.2 %; Hematocrit 29.1 % (35.3-44.9); Hemoglobin 9.2 g/dL (11.5-15.4); Immature Granulocytes % 0.2 % (0-4); Lymphocytes # 1.1 K/mcL (0.6-4.6); Lymphocytes % 24.9 %; Mean Corpuscular HGB Conc 31.6 g/dL (31.6-35.5); Mean Corpuscular Hemoglobin 33.9 pg (28.0-33.3); Mean Corpuscular Volume 107.4 fL (83.0-100.0); Mean Platelet Volume 11.2 fL (9.4-12.4); Monocytes # 0.5 K/mcL (0.0-1.3); Neutrophils # 2.5 K/mcL (1.6-8.9); Platelet Count 134 K/mcL (140-400); Red Blood Count 2.71 M/mcL (3.82-4.97); Red Cell Distribution Width 12.5 % (11.5-14.5); Segmented Neutrophils % 58.2 %
[2018-11-24 05:38] LABS: Albumin 2.9 g/dL (3.5-5.7); Albumin/Globulin Ratio 1.4 (1.1-2.2); Bilirubin,Total 0.4 mg/dL (0.3-1.0); Calcium 8.9 mg/dL (8.6-10.3); Globulin 2.1 g/dL (2.4-3.5); Potassium 3.7 mEq/L (3.5-5.1)
[2018-11-24] MEDS: *HR* Heparin 5,000 UNIT/ML VIAL SQ SCH ×3 (06:20→17:39)
[2018-11-24] MEDS: Levothyroxine 25 MCG TABLET PO SCH (07:00)
--- NOTE | 2018-11-24 07:33 | Internal Med Progress Note ---
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 Daughter who is at bedside said that patient is more alert this morning - Exam Vitals: Temp Pulse Resp BP Pulse Ox 98.4 F 60 20 177/72 97 11/24/18 06:37 11/24/18 06:37 11/24/18 06:37 11/24/18 06:37 11/24/18 06:37 Exam: Gen.: Nonacute distress, alert and oriented 1 (patient with baseline dementia) ENT: Mucosal membranes moist Respiratory: Lungs are clear to auscultation bilaterally without any wheezing rhonchi or rales Cardiovascular: Normal S1 and S2 regular rate rhythm no murmurs rubs or gallops Abdomen: Soft, nontender and nondistended with positive bowel sounds Extremities: No lower extremity edema Skin: Normal color - Assessment and Plan (1) UTI (urinary tract infection) Current Visit: Yes Status: Acute Assessment and Plan: Patient has had multiple UTIs per daughter. Apparently she has recently been treated at the urgent care on 11/09/18 on Levaquin for UTI. Patient also recently admitted at [facility] found to have urine cultures positive for enterococcus faecalis and on prior admission on 10/03/18 she was found to have urine cultures positive for Enterobacter cloacae complex. In the ER today, patient found to have pyuria on urinalysis but continues to be without leukocytosis and has remained afebrile. Pulmonary urine cultures positive for yeast and sensitivities pending; blood cultures pending Will therefore initiate therapy with fluconazole and continue day 2 of IV ceftriaxone until sensitivities for cultures finalized. 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+) on Arimidex managed by hematology/oncology as an outpatient (4) CKD (chronic kidney disease) stage 4, GFR 15-29 ml/min Current Visit: No Status: Acute Assessment and Plan: Stable; continue to monitor (5) Chronic diastolic heart failure Current Visit: No Status: Acute Assessment and Plan: Patient euvolemic; continue home medications (6) Dementia Current Visit: No Status: Acute Assessment and Plan: Continue home medications (7) Anemia Current Visit: No Status: Chronic Assessment and Plan: Hemoglobin at baseline and stable; continue to monitor (8) Essential (primary) hypertension Current Visit: No Status: Chronic Assessment and Plan: Continue home medications (9) Hyperlipidemia Current Visit: No Status: Chronic Assessment and Plan: Continue home medications DVT Prophylaxis: Subcutaneous heparin - Time Spent with Patient Total time spent is greater than 50% in coordination of care (as documented) at patient's floor/unit and/or counseling patient: Internal Medicine: Result - Labs CBC & Chem 7: 11/24/18 04:58 11/24/18 04:58 Labs: Short CBC 11/23/18 11/24/18 Range/Units 15:11 04:58 WBC 4.5 4.3 (4.3-11.1) K/mcL Hgb 10.4 L 9.2 L (11.5-15.4) g/dL Hct 32.1 L 29.1 L (35.3-44.9) % Plt Count 146 134 L (140-400) K/mcL Neutrophils # 2.9 2.5 (1.6-8.9) K/mcL BMP 11/23/18 11/24/18 15:11 04:58 Sodium 142 142 Potassium 4.2 3.7 Chloride 108 H 109 H Carbon Dioxide 28 27 BUN 28 H 25 H Creatinine 1.34 H 1.14 Glucose 100 83 Calcium 9.3 8.9 Cardiac Enzymes 11/23/18 Range/Units 15:11 Troponin I 0.03 (< 0.04) ng/mL Liver Function 11/23/18 11/24/18 Range/Units 15:11 04:58 Total Bilirubin 0.4 0.4 (0.3-1.0) mg/dL Direct Bilirubin 0.0 (0.0-0.2) mg/dL AST 17 15 (13-39) Units/L ALT 8 7 (7-52) Units/L Alkaline Phosphatase 71 65 (34-104) Units/L Albumin 3.3 L 2.9 L (3.5-5.7) g/dL Urine 11/23/18 Range/Units 15:21 Urine Color Yellow (Yellow) Urine Clarity Cloudy A (Clear) Urine pH 5.0 (5.0-8.0) pH Units Ur Specific Norris 1.023 (1.010-1.025) Urine Protein Trace (Neg-Trace) mg/dL Urine Glucose (UA) Normal (Normal) mg/dL - ABG Interpretation ABG results: PT/INR, D-dimer PT 11.8 Seconds (9.4-12.1) 11/23/18 15:11 - Impressions Impressions Abdomen/Pelvis CT 11/23/18 14:47 IMPRESSION: 1. New trace bilateral pleural effusions. 2. Redemonstration of bilateral nonobstructing renal calculi including a 4 mm left renal pelvis calculus which was previously intrarenal.. 3. No bowel obstruction. D/ / Danyel Gordillo MD / Danyel Gordillo MD Interpreting Provider: Danyel Gordillo MD Chest X-Ray 11/23/18 14:49 IMPRESSION: No acute abnormality detected. D/ / Matty Mathew MD / Matty Mathew MD Interpreting Provider: Matty Mathew MD Head CT 11/23/18 14:50 IMPRESSION: No acute intracranial abnormality detected. D/ / Matty Mathew MD / Matty Mathew MD Interpreting Provider: Matty Mathew MD Consult Discharge Plan - Plan Referrals: NONE,PCP [Primary Care Provider] - (1) UTI (urinary tract infection) Qualifiers: Urinary tract infection type: acute cystitis Hematuria presence: with hematuria Qualified Code(s): N30.01 - Acute cystitis with hematuria (3) Breast cancer, right Qualifiers: Qualified Code(s): C50.911 - Malignant neoplasm of unspecified site of right female breast (6) Dementia Qualifiers: Qualified Code(s): F01.50 - 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 disturbance (7) Anemia Qualifiers: Qualified Code(s): D64.9 - Anemia, unspecified (9) Hyperlipidemia Qualifiers: Hyperlipidemia type: unspecified Qualified Code(s): E78.5 - Hyperlipidemia, unspecified
[2018-11-24] MEDS: Cholecalciferol (D-3) 1,000 UNIT TABLET PO SCH (08:54)
[2018-11-24] MEDS: amLODIPine 5 MG TABLET PO SCH (08:54)
[2018-11-24] MEDS: Multivit/Ca/Min/Fe/FA 1 TAB TABLET PO SCH (08:54)
[2018-11-24] MEDS: Aspirin 81 MG TAB.CHEW PO SCH (08:55)
[2018-11-24] MEDS: CRANBERRY FRUIT EXTRACT 405 MG PO SCH ×2 (08:55→21:13)
[2018-11-24] MEDS: cefTRIAXone 1,000 MG in Water for inj. (sterile) 20 ML 10 ML IVP SCH (08:55)
[2018-11-24] MEDS: Anastrozole 1 MG TABLET PO SCH (08:59)
[2018-11-24] MEDS ORDERED: BOOST PO SCH (09:00)
--- NOTE | 2018-11-24 10:46 | Electrocardiograph Report ---
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
--- NOTE | 2018-11-24 10:52 | Electrocardiograph Report ---
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
[2018-11-24] MEDS: Fluconazole 100 MG TABLET PO SCH (14:37)
[2018-11-24] MEDS: Famotidine 20 MG TABLET PO SCH (20:07)
[2018-11-25 05:28] LABS: Basophils % 0.4 %; Eosinophils # 0.2 K/mcL (0.0-0.6); Eosinophils % 3.8 %; Hematocrit 29.8 % (35.3-44.9); Hemoglobin 9.6 g/dL (11.5-15.4); Immature Granulocytes % 0.2 % (0-4); Lymphocytes # 1.4 K/mcL (0.6-4.6); Lymphocytes % 27.4 %; Mean Corpuscular HGB Conc 32.2 g/dL (31.6-35.5); Mean Corpuscular Volume 105.7 fL (83.0-100.0); Mean Platelet Volume 11.2 fL (9.4-12.4); Monocytes # 0.6 K/mcL (0.0-1.3); Monocytes % 12.3 %; Neutrophils # 2.8 K/mcL (1.6-8.9); Platelet Count 136 K/mcL (140-400); Red Blood Count 2.82 M/mcL (3.82-4.97); Red Cell Distribution Width 12.2 % (11.5-14.5); Segmented Neutrophils % 55.9 %
[2018-11-25 05:43] LABS: Calcium 8.7 mg/dL (8.6-10.3); Potassium 3.7 mEq/L (3.5-5.1)
[2018-11-25] MEDS: Levothyroxine 25 MCG TABLET PO SCH (06:52)
[2018-11-25] MEDS: *HR* Heparin 5,000 UNIT/ML VIAL SQ SCH ×2 (06:52→17:13)
--- NOTE | 2018-11-25 09:50 | Internal Med Progress Note ---
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 - Exam Vitals: Temp Pulse Resp BP Pulse Ox 97.3 F L 55 18 167/84 99 11/25/18 07:07 11/25/18 07:07 11/25/18 07:07 11/25/18 07:07 11/25/18 07:07 Exam: Gen.: Nonacute distress, alert and oriented 1 (patient with baseline dementia) ENT: Mucosal membranes moist Respiratory: Lungs are clear to auscultation bilaterally without any wheezing rhonchi or rales Cardiovascular: Normal S1 and S2 regular rate rhythm no murmurs rubs or gallops Abdomen: Soft, nontender and nondistended with positive bowel sounds Extremities: No lower extremity edema Skin: Normal color - Assessment and Plan (1) UTI (urinary tract infection) Current Visit: Yes Status: Acute Assessment and Plan: Patient has had multiple UTIs per daughter. Apparently she has recently been treated at the urgent care on 11/09/18 on Levaquin for UTI. Patient also recently admitted at [facility] found to have urine cultures positive for enterococcus faecalis and on prior admission on 10/03/18 she was found to have urine cultures positive for Enterobacter cloacae complex. In the ER today, patient found to have pyuria on urinalysis but continues to be without leukocytosis and has remained afebrile. Pulmonary urine cultures positive for yeast and sensitivities pending; blood cultures pending Will continue day 2 of fluconazole and discontinued IV ceftriaxone 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+) on Arimidex managed by hematology/oncology as an outpatient (4) CKD (chronic kidney disease) stage 4, GFR 15-29 ml/min Current Visit: No Status: Acute Assessment and Plan: Stable; continue to monitor (5) Chronic diastolic heart failure Current Visit: No Status: Acute Assessment and Plan: Patient euvolemic; continue home medications (6) Dementia Current Visit: No Status: Acute Assessment and Plan: Continue home medications (7) Anemia Current Visit: No Status: Chronic Assessment and Plan: Hemoglobin at baseline and stable; continue to monitor (8) Essential (primary) hypertension Current Visit: No Status: Chronic Assessment and Plan: Continue home medications (9) Hyperlipidemia Current Visit: No Status: Chronic Assessment and Plan: Continue home medications DVT Prophylaxis: Subcutaneous heparin - Time Spent with Patient Total time spent is greater than 50% in coordination of care (as documented) at patient's floor/unit and/or counseling patient: Internal Medicine: Result - Labs CBC & Chem 7: 11/25/18 04:44 11/25/18 04:44 Labs: Short CBC 11/25/18 Range/Units 04:44 WBC 5.0 (4.3-11.1) K/mcL Hgb 9.6 L (11.5-15.4) g/dL Hct 29.8 L (35.3-44.9) % Plt Count 136 L (140-400) K/mcL Neutrophils # 2.8 (1.6-8.9) K/mcL BMP 11/25/18 04:44 Sodium 140 Potassium 3.7 Chloride 106 Carbon Dioxide 26 BUN 21 Creatinine 1.07 Glucose 92 Calcium 8.7 - ABG Interpretation ABG results: PT/INR, D-dimer PT 11.8 Seconds (9.4-12.1) 11/23/18 15:11 Consult Discharge Plan - Plan Referrals: NONE,PCP [Primary Care Provider] - (1) UTI (urinary tract infection) Qualifiers: Urinary tract infection type: acute cystitis Hematuria presence: with hematuria Qualified Code(s): N30.01 - Acute cystitis with hematuria (3) Breast cancer, right Qualifiers: Qualified Code(s): C50.911 - Malignant neoplasm of unspecified site of right female breast (6) Dementia Qualifiers: Qualified Code(s): F01.50 - 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 disturbance (7) Anemia Qualifiers: Qualified Code(s): D64.9 - Anemia, unspecified (9) Hyperlipidemia Qualifiers: Hyperlipidemia type: unspecified Qualified Code(s): E78.5 - Hyperlipidemia, unspecified
[2018-11-25] MEDS: Anastrozole 1 MG TABLET PO SCH (10:46)
[2018-11-25] MEDS: Cholecalciferol (D-3) 1,000 UNIT TABLET PO SCH (10:46)
[2018-11-25] MEDS: cefTRIAXone 1,000 MG in Water for inj. (sterile) 20 ML 10 ML IVP SCH (10:47)
[2018-11-25] MEDS: CRANBERRY FRUIT EXTRACT 405 MG PO SCH (10:47)
[2018-11-25] MEDS: Multivit/Ca/Min/Fe/FA 1 TAB TABLET PO SCH (10:47)
[2018-11-25] MEDS: Aspirin 81 MG TAB.CHEW PO SCH (10:47)
[2018-11-25] MEDS: amLODIPine 5 MG TABLET PO SCH (10:47)
[2018-11-25] MEDS: Fluconazole 100 MG TABLET PO SCH (10:49)
[2018-11-25] MEDS: Fluconazole 200 MG/100 ML 200 MG/100 ML BAG IVPB SCH (14:26)
[2018-11-26] MEDS: Famotidine 20 MG TABLET PO SCH ×2 (00:45→20:04)
[2018-11-26 04:39] LABS: Basophils % 0.4 %; Eosinophils # 0.2 K/mcL (0.0-0.6); Eosinophils % 3.5 %; Hematocrit 29.6 % (35.3-44.9); Hemoglobin 9.6 g/dL (11.5-15.4); Immature Granulocytes % 0.2 % (0-4); Lymphocytes # 1.3 K/mcL (0.6-4.6); Lymphocytes % 25.8 %; Mean Corpuscular HGB Conc 32.4 g/dL (31.6-35.5); Mean Platelet Volume 11.3 fL (9.4-12.4); Monocytes # 0.7 K/mcL (0.0-1.3); Monocytes % 13.5 %; Neutrophils # 2.8 K/mcL (1.6-8.9); Platelet Count 127 K/mcL (140-400); Red Blood Count 2.82 M/mcL (3.82-4.97); Red Cell Distribution Width 12.3 % (11.5-14.5); Segmented Neutrophils % 56.6 %
[2018-11-26 04:59] LABS: Calcium 8.7 mg/dL (8.6-10.3); Potassium 3.9 mEq/L (3.5-5.1)
[2018-11-26] MEDS: Cholecalciferol (D-3) 1,000 UNIT TABLET PO SCH (09:45)
[2018-11-26] MEDS: *HR* Heparin 5,000 UNIT/ML VIAL SQ SCH ×2 (09:45→17:32)
[2018-11-26] MEDS: Multivit/Ca/Min/Fe/FA 1 TAB TABLET PO SCH (09:45)
[2018-11-26] MEDS: Aspirin 81 MG TAB.CHEW PO SCH (09:45)
[2018-11-26] MEDS: Anastrozole 1 MG TABLET PO SCH (09:46)
[2018-11-26] MEDS: amLODIPine 5 MG TABLET PO SCH (09:46)
[2018-11-26] MEDS: Levothyroxine 25 MCG TABLET PO SCH (09:46)
[2018-11-26] MEDS: Fluconazole 200 MG/100 ML 200 MG/100 ML BAG IVPB SCH (12:52)
--- NOTE | 2018-11-26 13:04 | Internal Med Progress Note ---
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 Patient's mental status seems to be improving close to baseline dementia Will treat for an additional 24 hours on fluconazole anticipate discharge on 11/27/18 - Exam Vitals: Temp Pulse Resp BP Pulse Ox 98.5 F 86 15 158/65 96 11/26/18 11:43 11/26/18 11:43 11/26/18 11:43 11/26/18 11:43 11/26/18 11:43 Exam: Gen.: Nonacute distress, alert and oriented 1 (patient with baseline dementia) ENT: Mucosal membranes moist Respiratory: Lungs are clear to auscultation bilaterally without any wheezing rhonchi or rales Cardiovascular: Normal S1 and S2 regular rate rhythm no murmurs rubs or gallops Abdomen: Soft, nontender and nondistended with positive bowel sounds Extremities: No lower extremity edema Skin: Normal color - Assessment and Plan (1) UTI (urinary tract infection) Current Visit: Yes Status: Acute Assessment and Plan: Patient has had multiple UTIs per daughter. Apparently she has recently been treated at the urgent care on 11/09/18 on Levaquin for UTI. Patient also recently admitted at [facility] found to have urine cultures positive for enterococcus faecalis and on prior admission on 10/03/18 she was found to have urine cultures positive for Enterobacter cloacae complex. Patient found to have Natalie species on cultures this admission. Will continue day 3 of fluconazole (2) Acute encephalopathy Current Visit: No Status: Acute Assessment and Plan: Patient's confusion due to UTI above seems to have resolved but difficult to d etermine due to her baseline dementia Continue to monitor and management as above (3) Dementia Current Visit: No Status: Acute Assessment and Plan: Continue home medications (4) Breast cancer, right Current Visit: No Status: Acute Assessment and Plan: Patient with past medical history significant for right breast invasive ductal carcinoma (HER 2+) on Arimidex managed by hematology/oncology as an outpatient (5) CKD (chronic kidney disease) stage 4, GFR 15-29 ml/min Current Visit: No Status: Acute Assessment and Plan: Stable; continue to monitor (6) Chronic diastolic heart failure Current Visit: No Status: Acute Assessment and Plan: Patient euvolemic; continue home medications (7) Anemia Current Visit: No Status: Chronic Assessment and Plan: Hemoglobin at baseline and stable; continue to monitor (8) Essential (primary) hypertension Current Visit: No Status: Chronic Assessment and Plan: Continue home medications (9) Hyperlipidemia Current Visit: No Status: Chronic Assessment and Plan: Continue home medications DVT Prophylaxis: Heparin subcutaneous - Time Spent with Patient Total time spent is greater than 50% in coordination of care (as documented) at patient's floor/unit and/or counseling patient: Internal Medicine: Result - Labs CBC & Chem 7: 11/26/18 04:01 11/26/18 04:01 Labs: Short CBC 11/26/18 Range/Units 04:01 WBC 4.9 (4.3-11.1) K/mcL Hgb 9.6 L (11.5-15.4) g/dL Hct 29.6 L (35.3-44.9) % Plt Count 127 L (140-400) K/mcL Neutrophils # 2.8 (1.6-8.9) K/mcL BMP 11/26/18 04:01 Sodium 141 Potassium 3.9 Chloride 105 Carbon Dioxide 27 BUN 20 Creatinine 1.12 Glucose 88 Calcium 8.7 - ABG Interpretation ABG results: PT/INR, D-dimer PT 11.8 Seconds (9.4-12.1) 11/23/18 15:11 Consult Discharge Plan - Plan Referrals: NONE,PCP [Primary Care Provider] - (1) UTI (urinary tract infection) Qualifiers: Urinary tract infection type: acute cystitis Hematuria presence: with hematuria Qualified Code(s): N30.01 - Acute cystitis with hematuria (3) Dementia Qualifiers: Qualified Code(s): F01.50 - 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 disturbance (4) Breast cancer, right Qualifiers: Qualified Code(s): C50.911 - Malignant neoplasm of unspecified site of right female breast (7) Anemia Qualifiers: Qualified Code(s): D64.9 - Anemia, unspecified (9) Hyperlipidemia Qualifiers: Hyperlipidemia type: unspecified Qualified Code(s): E78.5 - Hyperlipidemia, unspecified
[2018-11-27 05:17] LABS: Basophils % 0.4 %; Eosinophils # 0.2 K/mcL (0.0-0.6); Eosinophils % 3.3 %; Immature Granulocytes % 0.4 % (0-4); Lymphocytes # 1.3 K/mcL (0.6-4.6); Lymphocytes % 25.4 %; Mean Corpuscular HGB Conc 32.3 g/dL (31.6-35.5); Mean Corpuscular Hemoglobin 33.9 pg (28.0-33.3); Mean Corpuscular Volume 105.1 fL (83.0-100.0); Mean Platelet Volume 11.1 fL (9.4-12.4); Monocytes # 0.7 K/mcL (0.0-1.3); Neutrophils # 2.9 K/mcL (1.6-8.9); Platelet Count 134 K/mcL (140-400); Red Blood Count 2.95 M/mcL (3.82-4.97); Red Cell Distribution Width 12.4 % (11.5-14.5); Segmented Neutrophils % 57.5 %
[2018-11-27 05:32] LABS: BUN/Creatinine Ratio 16 (6-26); Blood Urea Nitrogen 17 mg/dL (8-23); Calcium 9.1 mg/dL (8.6-10.3); Carbon Dioxide 28 mEq/L (23-29); Chloride 103 mEq/L (98-107); Glucose 88 mg/dL (70-105); Osmolality,Calculated 289 (280-300); Potassium 4.4 mEq/L (3.5-5.1); Sodium 139 mEq/L (136-145); eGFR For Non-African Americans 50 (> 60)
[2018-11-27] MEDS: *HR* Heparin 5,000 UNIT/ML VIAL SQ SCH (05:56)
[2018-11-27] MEDS: Levothyroxine 25 MCG TABLET PO SCH (05:56)
[2018-11-27] MEDS: Multivit/Ca/Min/Fe/FA 1 TAB TABLET PO SCH (08:38)
[2018-11-27] MEDS: amLODIPine 5 MG TABLET PO SCH (08:38)
[2018-11-27] MEDS: Cholecalciferol (D-3) 1,000 UNIT TABLET PO SCH (08:38)
[2018-11-27] MEDS: Aspirin 81 MG TAB.CHEW PO SCH (08:38)
[2018-11-27] MEDS: Anastrozole 1 MG TABLET PO SCH (08:38)
--- NOTE | 2018-11-27 09:35 | Discharge Summary ---
Orders not resulted at time of discharge: Pending orders 11/23/18 16:12 Culture,Blood [BC] Stat Date of Encounter: 11/27/18 Time of Encounter: 09:29 - Discharge Diagnosis (1) Dementia Priority: Secondary Status: Chronic Qualifiers: Dementia type: unspecified type Dementia behavioral disturbance: without behavioral disturbance Qualified Code(s): F03.90 - Unspecified dementia without behavioral disturbance (2) Anemia Priority: Secondary Status: Chronic Qualifiers: Anemia type: unspecified type Qualified Code(s): D64.9 - Anemia, unspecified (3) Acute encephalopathy Priority: Primary Status: Resolved (4) CKD (chronic kidney disease) stage 4, GFR 15-29 ml/min Priority: Secondary Status: Resolved (5) Hyperlipidemia Priority: Secondary Status: Chronic Qualifiers: Hyperlipidemia type: unspecified Qualified Code(s): E78.5 - Hyperlipidemia, unspecified (6) UTI (urinary tract infection) Priority: Primary Status: Acute Qualifiers: Urinary tract infection type: acute cystitis Hematuria presence: with hematuria Qualified Code(s): N30.01 - Acute cystitis with hematuria (7) Breast cancer, right Priority: Secondary Status: Chronic Qualifiers: Breast location: unspecified site of breast Estrogen receptor status: unspecified Patient sex: female Qualified Code(s): C50.911 - Malignant neoplasm of unspecified site of right female breast (8) Essential (primary) hypertension Priority: Secondary Status: Chronic (9) Chronic diastolic heart failure Priority: Secondary Status: Chronic Hospital course: Ms. 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 difficile infections, dementia, CKD 3 and chronic diastolic heart failure who presents with daughter secondary to patient having altered mental status. Daughter states that patient has been complaining of dysuria so she decided to bring her in the ER for further evaluation. UA during this admission diagnostic for a UTI. CT abd/Pelvis: IMPRESSION: 1. New trace bilateral pleural effusions. 2. Redemonstration of bilateral nonobstructing renal calculi including a which was previously intrarenal.. 3. No bowel obstruction. UC grew Yeast species. Due to patient's change in mental status during this presentation the patient was treated with an antifungal. Patient's acute symptoms have resolved and she is hemodynamically stable to be discharged home. Per social services director conversation with patient's daughter, they want the patient to return home with no services. Make an appointment to see an urologist as outpatient for management of 4 mm left renal pelvis calculus - Time Spent with Patient Total time spent providing and/or coordinating discharge services: Time spent: Greater than 30 minutes (35) - Discharge Medications Prescriptions: New Amoxicillin/Clavulanate [Augmentin] 875 mg PO BIDWM 2 Days #4 tablet Fluconazole [Diflucan] 200 mg PO DAILY 4 Days #4 tab Continued Donepezil [Aricept] 10 mg PO HS Cranberry Fruit Extract [Cranberry] 405 mg PO BID Atenolol [Tenormin] 100 mg PO DAILY Ferrous Sulfate 325 mg PO BID Aspirin 81 mg PO DAILY tab.chew amLODIPine [Norvasc] 5 mg PO DAILY Anastrozole [Arimidex] 1 mg PO DAILY 30 Days #30 tablet Docusate [Colace] 100 mg PO BID PRN PRN Reason: Constipation Lactose-Reduced Food [Boost] 237 ml PO AD Levothyroxine Sodium [Levo-T] 25 mcg PO DAILY Cholecalciferol (D-3) [Vitamin D] 2,000 unit PO DAILY Polyethylene Glycol 3350 [MiraLAX] 17 gm PO DAILY Ranitidine Oral Soln [Zantac] 150 mg PO DAILY Promethazine [Phenergan] 25 mg PO Q6H PRN PRN Reason: Nausea And Vomiting Multivit-Min/FA/Lycopen/Lutein [Adults 50+ Multivitamin Tablet] 1 each PO DAILY Memantine HCl [Namenda Xr] 21 mg PO DAILY Home Medications: Atenolol [Tenormin] 100 mg PO DAILY 10/29/15 [History] Cranberry Fruit Extract [Cranberry] 405 mg PO BID 10/29/15 [History] Donepezil [Aricept] 10 mg PO HS 10/29/15 [History] Ferrous Sulfate 325 mg PO BID 02/28/16 [History] Aspirin 81 mg PO DAILY tab.chew 03/02/16 [Rx] amLODIPine [Norvasc] 5 mg PO DAILY 06/03/18 [History] Anastrozole [Arimidex] 1 mg PO DAILY 30 Days #30 tablet 06/10/18 [Rx] Docusate [Colace] 100 mg PO BID PRN 10/02/18 [History] Cholecalciferol (D-3) [Vitamin D] 2,000 unit PO DAILY 11/23/18 [History] Lactose-Reduced Food [Boost] 237 ml PO AD 11/23/18 [History] Levothyroxine Sodium [Levo-T] 25 mcg PO DAILY 11/23/18 [History] Memantine HCl [Namenda Xr] 21 mg PO DAILY 11/23/18 [History] Multivit-Min/FA/Lycopen/Lutein [Adults 50+ Multivitamin Tablet] 1 each PO DAILY 11/23/18 [History] Polyethylene Glycol 3350 [MiraLAX] 17 gm PO DAILY 11/23/18 [History] Promethazine [Phenergan] 25 mg PO Q6H PRN 11/23/18 [History] Ranitidine Oral Soln [Zantac] 150 mg PO DAILY 11/23/18 [History] Amoxicillin/Clavulanate [Augmentin] 875 mg PO BIDWM 2 Days #4 tablet 11/27/18 [Rx] Fluconazole [Diflucan] 200 mg PO DAILY 4 Days #4 tab 11/27/18 [Rx] Allergies/Adverse Reactions: Allergy/AdvReac Type Severity Reaction Status Date / Time ciprofloxacin [From Cipro] AdvReac Diarrhea Verified 11/23/18 14:35 Date of admission: 11/26/18 14:42 Primary care physician: PCP NONE - Constitutional Vitals: Temp Pulse Resp BP Pulse Ox 97.3 F L 54 16 157/63 100 11/27/18 07:26 11/27/18 07:26 11/27/18 07:26 11/27/18 07:26 11/27/18 07:26 Exam: Vitals: Reviewed General: Patient pleasantly demented. In no distress HEENT: Dry mucus membrane, EOM, pupils equal, round and reactive. Cardiovascular: RRR, normal S1 & S2, no rubs, murmurs or gallops. Lungs: CTA b/l, no wheezes or crackles. Abdomen: Obese, soft, non-tender, no rigidity. Extremities: No edema. Neurological: No focal neurological deficits Rest of the physical exam is non contributory - Patient Status Disposition: Home, Self-Care Condition: Good Functional capacity at discharge: independent ambulation Overall status at discharge: patient is back to baseline - Discharge Instructions Follow Up With: Karen Salomon, MANAGER [employer] [Advanced Practice Nurse] - - Diet and Activity Activity: resume usual activities as tolerated Diet: low salt diet
[2018-11-27] MEDS: Fluconazole 200 MG/100 ML 200 MG/100 ML BAG IVPB SCH (12:35)
[2018-11-27 14:56] VITALS: BP 163/72
== END 2018-11-27 16:27 | disposition home or self-care (01) | DRG 690 ==
LOC: EMEROOARM 14:21 → 3ANU 14:21 → SUATTDRO 18:52 → 3ANU 20:11 → SUATTDRO 11-26 14:42
PROVIDERS: ADMIT Student in an Organized Health Care Education/Training Program; ATTEND Internal Medicine

== ENCOUNTER 2018-12-01 09:47 | Observation (INO) ==
[2018-12-01] MEDS ORDERED: Isovue-370 500 ML BOTTLE IVP ONE (10:27)
[2018-12-01 10:36] LABS: Basophils % 0.3 %; Eosinophils # 0.2 K/mcL (0.0-0.6); Eosinophils % 6.5 %; Hematocrit 28.9 % (35.3-44.9); Hemoglobin 9.5 g/dL (11.5-15.4); Immature Granulocytes % 0.3 % (0-4); Lymphocytes # 0.9 K/mcL (0.6-4.6); Lymphocytes % 23.1 %; Mean Corpuscular HGB Conc 32.9 g/dL (31.6-35.5); Mean Corpuscular Hemoglobin 34.7 pg (28.0-33.3); Mean Corpuscular Volume 105.5 fL (83.0-100.0); Monocytes # 0.5 K/mcL (0.0-1.3); Monocytes % 13.9 %; Neutrophils # 2.1 K/mcL (1.6-8.9); Platelet Count 141 K/mcL (140-400); Red Blood Count 2.74 M/mcL (3.82-4.97); Red Cell Distribution Width 12.4 % (11.5-14.5); Segmented Neutrophils % 55.9 %
[2018-12-01 10:47] LABS: INR 1.1; Prothrombin Time 11.9 Seconds (9.4-12.1)
[2018-12-01 10:55] LABS: Albumin 3.1 g/dL (3.5-5.7); Albumin/Globulin Ratio 1.4 (1.1-2.2); Bilirubin,Total 0.3 mg/dL (0.3-1.0); Globulin 2.2 g/dL (2.4-3.5); Potassium 3.9 mEq/L (3.5-5.1); Total Protein 5.3 g/dL (6.4-8.9)
--- NOTE | 2018-12-01 11:02 | Emergency Department Note ---
Disposition Clinical Impression: Lower GI bleed Disposition: Admitted As Inpatient Referrals: Karen Salomon, COPY CUTTER [Primary Care Provider] - Forms: ED Satisfaction Letter Time of Disposition: 12:00 General Adult HPI - General Chief complaint: ED Nausea/Vomiting/Diarrhea Stated complaint: Diarrhea / Bloody Stools Time Seen by Provider: 12/01/18 10:09 Source: patient Limitations: no limitations Nursing Notes Reviewed: Yes Vital Signs Reviewed: Yes - History of Present Illness HPI Narrative: Complete history is unobtainable due to patient's dementia. Family member at the bedside provides partial history. Patient is an 88-year-old female with past medical history of dementia, anemia, recent C. difficile infection the presents for chief complaint of bloody diarrhea this morning. Patient was apparently a little more confused than usual overnight, but has otherwise been acting appropriately. She has not been in any pain. She had a normal soft bowel movement yesterday. This was followed by red blood mixed with loose diarrhea this morning. No sick contacts. No new food or travel. No fevers. No remitting or exacerbating factors. No anticoagulant use or trauma. Patient has recently been on Diflucan and amoxicillin. No history of abdominal surgery or hernias. Pain Scale: 0 - Related Data Home Medications Medication Instructions Recorded Confirmed Atenolol [Tenormin] 100 mg PO DAILY 10/29/15 11/24/18 Cranberry Fruit Extract [Cranberry] 405 mg PO BID 10/29/15 11/24/18 Donepezil [Aricept] 10 mg PO HS 10/29/15 11/24/18 Ferrous Sulfate 325 mg PO BID 02/28/16 11/24/18 amLODIPine [Norvasc] 5 mg PO DAILY 06/03/18 11/24/18 Docusate [Colace] 100 mg PO BID PRN 10/02/18 11/24/18 Cholecalciferol (D-3) [Vitamin D] 2,000 unit PO DAILY 11/23/18 11/24/18 Lactose-Reduced Food [Boost] 237 ml PO AD 11/23/18 11/24/18 Levothyroxine Sodium [Levo-T] 25 mcg PO DAILY 11/23/18 11/24/18 Memantine HCl [Namenda Xr] 21 mg PO DAILY 11/23/18 11/24/18 Multivit-Min/FA/Lycopen/Lutein 1 each PO DAILY 11/23/18 11/24/18 [Adults 50+ Multivitamin Tablet] Polyethylene Glycol 3350 [MiraLAX] 17 gm PO DAILY 11/23/18 11/24/18 Promethazine [Phenergan] 25 mg PO Q6H PRN 11/23/18 11/24/18 Ranitidine Oral Soln [Zantac] 150 mg PO DAILY 11/23/18 11/24/18 Previous Rx's Medication Instructions Recorded Aspirin 81 mg PO DAILY tab.chew 03/02/16 Anastrozole [Arimidex] 1 mg PO DAILY 30 Days #30 tablet 06/10/18 Allergies Allergy/AdvReac Type Severity Reaction Status Date / Time ciprofloxacin [From Cipro] AdvReac Diarrhea Verified 11/23/18 14:35 Review of Systems: As Per HPI Limitations: ROS unobtainable due to patients medical condition Past Medical History - Past Medical History Source: obtained from family Medical history: Reports: cancer, CHF, dementia, hyperlipidemia, hypertension, renal disease, other Surgical history: Reports: orthopedic, other, other, vascular surgery Psychiatric history: Reports: no psych history CNA PCT history: Reports: non-contributory - Social History Smoking Status: Never smoker Smokeless Tobacco Status: No Alcohol use: Reports: none Drug use: Reports: none Physical Exam - General Limitations: no limitations General appearance: alert, in no apparent distress - Head Head exam: atraumatic, normocephalic, normal inspection - Eye Eye exam: Present: normal appearance, PERRL, EOMI - ENT ENT exam: normal exam, normal oropharynx, mucous membranes moist - Neck Neck exam: Present: normal inspection, full ROM, trachea midline - Chest Chest inspection: Present: normal inspection, symmetric chest wall rise - Respiratory Respiratory exam: Present: normal lung sounds bilaterally. Absent: respiratory distress - Cardiovascular Cardiovascular exam: Present: regular rate, normal rhythm - Abdominal Exam Abdominal exam: Present: soft, tenderness (Diffuse mild lower abdominal tenderness to palpation.) - Rectal Exam Rectal exam: Present: bloody stool, other (No inflamed hemorrhoids.) - Extremities Exam Extremities exam: Present: normal inspection, full ROM - Neurological Exam Neurological exam: Present: alert, other (Disoriented) - Skin Skin exam: Present: warm, dry Course Course Narrative: Patient without any bloody diarrhea here, but did have grossly bloody stool on rectal exam. She has been on antibiotics recently so he ordered a C. difficile test, but she has not had stool here. CT scan of the abdomen and pelvis was performed without IV contrast due to CK D and did not show any acute abnormality. Patient had stable hemoglobin. Patient admitted for further evaluation and management of her GI bleed. Vital Signs Temperature 97.4 F L 12/01/18 09:49 Pulse Rate 51 12/01/18 09:49 Respiratory Rate 18 12/01/18 09:49 Blood Pressure 119/74 12/01/18 09:49 O2 Sat by Pulse Oximetry 96 12/01/18 09:49 Temperature 97.4 F L 12/01/18 09:49 Pulse Rate 51 12/01/18 09:49 Respiratory Rate 18 12/01/18 09:49 Blood Pressure 119/74 12/01/18 09:49 O2 Sat by Pulse Oximetry 96 12/01/18 09:49 Oxygen Delivery Oxygen Delivery Room Air Medical Decision Making - Lab Data Result diagrams: 12/01/18 10:24 12/01/18 10:24 Lab Results 12/01/18 12/01/18 12/01/18 Range/Units 10:24 10:24 10:24 WBC 3.7 L (4.3-11.1) K/mcL RBC 2.74 L (3.82-4.97) M/mcL Hgb 9.5 L (11.5-15.4) g/dL Hct 28.9 L (35.3-44.9) % MCV 105.5 H (83.0-100.0) fL MCH 34.7 H (28.0-33.3) pg MCHC 32.9 (31.6-35.5) g/dL RDW 12.4 (11.5-14.5) % Plt Count 141 (140-400) K/mcL MPV 11.0 (9.4-12.4) fL Immature Gran % 0.3 (0-4) % Seg Neutrophils % 55.9 % Lymphocytes % 23.1 % Monocytes % 13.9 % Eosinophils % 6.5 % Basophils % 0.3 % Neutrophils # 2.1 (1.6-8.9) K/mcL Lymphocytes # 0.9 (0.6-4.6) K/mcL Monocytes # 0.5 (0.0-1.3) K/mcL Eosinophils # 0.2 (0.0-0.6) K/mcL Basophils # 0.0 (0.0-0.2) K/mcL PT 11.9 (9.4-12.1) Seconds INR 1.1 Sodium 138 (136-145) mEq/L Potassium 3.9 (3.5-5.1) mEq/L Chloride 104 (98-107) mEq/L Carbon Dioxide 27 (23-29) mEq/L BUN 22 (8-23) mg/dL Creatinine 1.41 H (0.60-1.20) mg/dL Est GFR ( Amer) 43 L (> 60) Est GFR (Non-Af Amer) 35 L (> 60) BUN/Creatinine Ratio 16 (6-26) Glucose 118 H (70-105) mg/dL Calculated Osmolality 290 (280-300) Calcium 9.0 (8.6-10.3) mg/dL Total Bilirubin 0.3 (0.3-1.0) mg/dL AST 18 (13-39) Units/L ALT 12 (7-52) Units/L Alkaline Phosphatase 69 (34-104) Units/L Serum Total Protein 5.3 L (6.4-8.9) g/dL Albumin 3.1 L (3.5-5.7) g/dL Globulin 2.2 L (2.4-3.5) g/dL Albumin/Globulin Ratio 1.4 (1.1-2.2) Urine Color (Yellow) Urine Clarity (Clear) Urine pH (5.0-8.0) pH Units Ur Specific [place] (1.010-1.025) Urine Protein (Neg-Trace) mg/dL Urine Glucose (UA) (Normal) mg/dL Urine Ketones (Negative) mg/dL Urine Blood (Negative) Urine Nitrite (Negative) Urine Bilirubin (Negative) Urine Urobilinogen (Normal) mg/dL Ur Leukocyte Esterase (Negative) Urine Microscopic RBC (0-3) per hpf Urine Microscopic WBC (0-3) per hpf Ur Squamous Epith Cells (None-Few) per lpf Urine Bacteria (None-Few) per hpf Hyaline Casts (None-Few) per lpf Ur Culture Indicated? (NO) Blood Type Antibody Screen 12/01/18 12/01/18 Range/Units 10:24 11:51 WBC (4.3-11.1) K/mcL RBC (3.82-4.97) M/mcL Hgb (11.5-15.4) g/dL Hct (35.3-44.9) % MCV (83.0-100.0) fL MCH (28.0-33.3) pg MCHC (31.6-35.5) g/dL RDW (11.5-14.5) % Plt Count (140-400) K/mcL MPV (9.4-12.4) fL Immature Gran % (0-4) % Seg Neutrophils % % Lymphocytes % % Monocytes % % Eosinophils % % Basophils % % Neutrophils # (1.6-8.9) K/mcL Lymphocytes # (0.6-4.6) K/mcL Monocytes # (0.0-1.3) K/mcL Eosinophils # (0.0-0.6) K/mcL Basophils # (0.0-0.2) K/mcL PT (9.4-12.1) Seconds INR Sodium (136-145) mEq/L Potassium (3.5-5.1) mEq/L Chloride (98-107) mEq/L Carbon Dioxide (23-29) mEq/L BUN (8-23) mg/dL Creatinine (0.60-1.20) mg/dL Est GFR ( Amer) (> 60) Est GFR (Non-Af Amer) (> 60) BUN/Creatinine Ratio (6-26) Glucose (70-105) mg/dL Calculated Osmolality (280-300) Calcium (8.6-10.3) mg/dL Total Bilirubin (0.3-1.0) mg/dL AST (13-39) Units/L ALT (7-52) Units/L Alkaline Phosphatase (34-104) Units/L Serum Total Protein (6.4-8.9) g/dL Albumin (3.5-5.7) g/dL Globulin (2.4-3.5) g/dL Albumin/Globulin Ratio (1.1-2.2) Urine Color Yellow (Yellow) Urine Clarity Clear (Clear) Urine pH 5.5 (5.0-8.0) pH Units Ur Specific [place] 1.013 (1.010-1.025) Urine Protein Negative (Neg-Trace) mg/dL Urine Glucose (UA) Normal (Normal) mg/dL Urine Ketones Negative (Negative) mg/dL Urine Blood Negative (Negative) Urine Nitrite Negative (Negative) Urine Bilirubin Negative (Negative) Urine Urobilinogen Normal (Normal) mg/dL Ur Leukocyte Esterase Trace H (Negative) Urine Microscopic RBC 0-3 (0-3) per hpf Urine Microscopic WBC 5-15 H (0-3) per hpf Ur Squamous Epith Cells Many H (None-Few) per lpf Urine Bacteria None Seen (None-Few) per hpf Hyaline Casts Few (None-Few) per lpf Ur Culture Indicated? YES A (NO) Blood Type O NEGATIVE Antibody Screen NEGATIVE
[2018-12-01 12:01] LABS: Bilirubin,Urine Negative (Negative); Blood,Urine Negative (Negative); Clarity,Urine Clear (Clear); Color,Urine Yellow (Yellow); Glucose,Urine (UA) Normal (Normal); Ketones,Urine Negative (Negative); Leukocyte Esterase,Urine Trace (Negative); Nitrite,Urine Negative (Negative); PH,Urine 5.5 pH Units (5.0-8.0); Protein,Urine Negative (Neg-Trace); Specific Gravity,Urine 1.013 (1.010-1.025); Urobilinogen,Urine Normal (Normal)
[2018-12-01 12:02] LABS: Bacteria,Urine None Seen per hpf (None-Few); Hyaline Casts,Urine Few per lpf (None-Few); RBC,Urine 0-3 per hpf (0-3); Squamous Epithelial Cell,Urine Many per lpf (None-Few)
[2018-12-01] MEDS ORDERED: traMADol 50 MG TABLET PO PRN (12:24)
[2018-12-01] MEDS ORDERED: Ondansetron 4 MG/2 ML VIAL IVP PRN (12:24)
[2018-12-01] MEDS ORDERED: Naloxone 0.4 MG/ML INJ IVP PRN (12:24)
[2018-12-01] MEDS ORDERED: D5% in 0.9% NACL 1,000 ML IVC SCH (12:30)
[2018-12-01 12:57] LABS: Basophils % 0.5 %; Eosinophils # 0.2 K/mcL (0.0-0.6); Eosinophils % 4.8 %; Hematocrit 28.6 % (35.3-44.9); Hemoglobin 9.8 g/dL (11.5-15.4); Lymphocytes # 1.1 K/mcL (0.6-4.6); Lymphocytes % 25.7 %; Mean Corpuscular HGB Conc 34.3 g/dL (31.6-35.5); Mean Corpuscular Hemoglobin 34.9 pg (28.0-33.3); Mean Corpuscular Volume 101.8 fL (83.0-100.0); Monocytes # 0.7 K/mcL (0.0-1.3); Monocytes % 16.7 %; Neutrophils # 2.1 K/mcL (1.6-8.9); Platelet Count 103 K/mcL (140-400); Red Blood Count 2.81 M/mcL (3.82-4.97); Red Cell Distribution Width 12.3 % (11.5-14.5); Segmented Neutrophils % 51.3 %
--- NOTE | 2018-12-01 15:09 | Internal Med History&Physical ---
Date of Encounter: 12/01/18 Time of Encounter: 15:04 Internal Medicine - H&P: HPI Chief complaint: bloody dirrhea Admitted From: Home Plans for Post Hospital Care: Home History of present illness: Ms. Nice is a 88 year old female PMH of CHF, dementia, hyperlipidemia, hypertension, CKD. Patient was brought to the hospital due to bloody diarrhea. Information obtained from patient's daughter at bedside. She reports the patient had an episode of bloody diarrhea this morning, she described the as watery with bright red blood. Reports that the patient usually moves her bowel everyday and denies similar episodes in the past. Denied vomiting, reports that the patient complained of having heart burn like type of abdominal discomfort which was relieved by some PPI. Started that the patient had not moved her bowel again today. Unclear if the patient had ever had a colonoscopy, but she is almost certain she has not. Past Med Surg Social Fam HX - Past Medical History Medical history: cancer, CHF, dementia, hyperlipidemia, hypertension, renal d isease, other Additional medical history: right breast cancer Psychiatric history: no psych history - Past Surgical History Surgical History: orthopedic, other, other, vascular surgery Additional surgical history: vein stripping. left wrist - Social History Smoking Status: Never smoker Smokeless Tobacco Status: No Alcohol use: none Drug use: none - Family History Mother Living Status: Hx Family Cardiac Disorders: Yes Internal Medicine - H&P: Meds Atenolol [Tenormin] 100 mg PO DAILY 10/29/15 [History] Cranberry Fruit Extract [Cranberry] 405 mg PO DAILY 10/29/15 [History] Donepezil [Aricept] 10 mg PO HS 10/29/15 [History] Ferrous Sulfate 325 mg PO BID 02/28/16 [History] Aspirin 81 mg PO DAILY tab.chew 03/02/16 [Rx] amLODIPine [Norvasc] 5 mg PO DAILY 06/03/18 [History] Anastrozole [Arimidex] 1 mg PO DAILY 30 Days #30 tablet 06/10/18 [Rx] Docusate [Colace] 100 mg PO BID PRN 10/02/18 [History] Cholecalciferol (D-3) [Vitamin D] 2,000 unit PO DAILY 11/23/18 [History] Lactose-Reduced Food [Boost] 237 ml PO AD 11/23/18 [History] Levothyroxine Sodium [Levo-T] 25 mcg PO DAILY 11/23/18 [History] Memantine HCl [Namenda Xr] 21 mg PO DAILY 11/23/18 [History] Multivit-Min/FA/Lycopen/Lutein [Adults 50+ Multivitamin Tablet] 1 each PO DAILY 11/23/18 [History] Polyethylene Glycol 3350 [MiraLAX] 17 gm PO DAILY 11/23/18 [History] Promethazine [Phenergan] 25 mg PO Q6H PRN 11/23/18 [History] Ranitidine Oral Soln [Zantac] 75 mg PO DAILY 11/23/18 [History] Allergy/AdvReac Type Severity Reaction Status Date / Time ciprofloxacin [From Cipro] AdvReac Diarrhea Verified 11/23/18 14:35 All Systems PM: A 10-system review of systems was performed and is negative for pertinent find ings except as documented above in the HPI. - Constitutional Constitutional: no chills, no malaise - EENT Eyes: no blurry vision, no irritation, no loss of vision, no pain - Cardiovascular Cardiovascular ROS IM: no chest pain, no dyspnea - Respiratory Respiratory: no cough, no dyspnea, no wheezing - Gastrointestinal Gastrointestinal: diarrhea, loose stools, no abdominal pain, no nausea, no vomiting - Genitourinary Genitourinary: no hematuria - Musculoskeletal Musculoskeletal ROS IM: no muscle weakness - Integumentary Integumentary IM: no erythema - Neurological Neurological ROS: no headache(s) - Psychiatric Psychiatric: memory loss, no irritability - Endocrine Endocrine IM: no fatigue - Allergic/Immunologic Allergic/Immunologic: no GI upset with certain foods - Constitutional Vitals: Temp Pulse Resp BP Pulse Ox 97.4 F L 53 18 149/60 100 12/01/18 09:49 12/01/18 13:00 12/01/18 14:08 12/01/18 14:08 12/01/18 13:00 Exam: Vitals: Reviewed General: Alert and oriented to person, not time or place. No distress HEENT: Dry mucus membrane, EOM, pupils equal, round and reactive. Cardiovascular: RRR, normal S1 & S2, no rubs, murmurs or gallops. No JVD. Pulse regular. Lungs: CTA b/l, no wheezes or crackles. Abdomen: Soft, non-tender, no rigidity. Extremities: No deformity, no edema or tenderness, no joint swelling or clubbing. Neurological: No acute focal neurological abnormalities Rest of the physical exam is non contributory Internal Med - H&P Results - Labs CBC & Chem 7: 12/01/18 12:48 12/01/18 10:24 Labs: Short CBC 12/01/18 12/01/18 Range/Units 10:24 12:48 WBC 3.7 L 4.1 L (4.3-11.1) K/mcL Hgb 9.5 L 9.8 L (11.5-15.4) g/dL Hct 28.9 L 28.6 L (35.3-44.9) % Plt Count 141 103 L (140-400) K/mcL Neutrophils # 2.1 2.1 (1.6-8.9) K/mcL BMP 12/01/18 10:24 Sodium 138 Potassium 3.9 Chloride 104 Carbon Dioxide 27 BUN 22 Creatinine 1.41 H Glucose 118 H Calcium 9.0 Liver Function 12/01/18 Range/Units 10:24 Total Bilirubin 0.3 (0.3-1.0) mg/dL AST 18 (13-39) Units/L ALT 12 (7-52) Units/L Alkaline Phosphatase 69 (34-104) Units/L Albumin 3.1 L (3.5-5.7) g/dL Urine 12/01/18 Range/Units 11:51 Urine Color Yellow (Yellow) Urine Clarity Clear (Clear) Urine pH 5.5 (5.0-8.0) pH Units Ur Specific [place] 1.013 (1.010-1.025) Urine Protein Negative (Neg-Trace) mg/dL Urine Glucose (UA) Normal (Normal) mg/dL - Impressions ITS Impressions Abdomen/Pelvis CT 12/01/18 10:27 IMPRESSION: 1. Stable appearing bilateral nephrolithiasis with left renal pelvis calculus which is nonobstructing. 2. Possible gallbladder sludge or stones. No acute inflammatory process evident. 3. Calcific atherosclerotic disease aorta. 4. Degenerative changes predominate L5-S1 with grade 1 degenerative anterolisthesis L5 on S1. 5. Remainder of the unenhanced CT abdomen/pelvis appears unremarkable. 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 PT/INR Serial CBC Q8HRs Type and screen consider transfusing if Hb <7, or Hct <23 or patient becomes symptomatic (2) Acute renal failure superimposed on stage 3 chronic kidney disease Current Visit: No Status: Acute Assessment and plan: Likely secondary to decreased preload. Patient is started on gentle IV hydration. We will reassess kidney function tomorrow morning. Qualifiers: Acute renal failure type: unspecified Qualified Code(s): N17.9 - Acute kidney failure, unspecified; N18.3 - Chronic kidney disease, stage 3 (moderate) (3) DVT prophylaxis Current Visit: No Status: Acute Assessment and plan: No chemical DVT prophylaxis due to bright red blood per rectum. Intermittent pneumatic compression for DVT prophylaxis. (4) Anemia Current Visit: No Status: Chronic Assessment and plan: Plan of care as per problem #1. Qualifiers: Anemia type: unspecified type Qualified Code(s): D64.9 - Anemia, unspecified (5) Dementia Current Visit: No Status: Chronic Assessment and plan: Continue memantine 10 mg by mouth twice a day. Hold donepezil due to bradycardia. Qualifiers: Dementia type: unspecified type Dementia behavioral disturbance: without behavioral disturbance Qualified Code(s): F03.90 - Unspecified dementia without behavioral disturbance (6) Essential (primary) hypertension Current Visit: No Status: Chronic Assessment and plan: Patient on atenolol 100 mg by mouth daily. Hold beta fredy due to bra dycardia. Continue amlodipine 5 mg by mouth daily. (7) Hyperlipidemia Current Visit: No Status: Chronic Qualifiers: Hyperlipidemia type: unspecified Qualified Code(s): E78.5 - Hyperlipidemia, unspecified (8) Hypothyroidism Current Visit: No Status: Chronic Assessment and plan: Patient is on levothyroxine 25 mcg/PO daily Qualifiers: Hypothyroidism type: unspecified Qualified Code(s): E03.9 - Hypothyroidism, unspecified (9) Congestive heart failure Current Visit: Yes Status: Chronic Assessment and plan: Patient not on acute exacerbation. Strict intake and output. Qualifiers: Heart failure type: unspecified Heart failure chronicity: chronic Qu alified Code(s): I50.9 - Heart failure, unspecified - Time Spent With Patient Total time spent is greater than 50% in coordination of care (as documented) at patient's floor/unit and/or counseling patient: Greater than 35 minutes (45)
[2018-12-01] MEDS: Pantoprazole 40 MG VIAL IVP SCH (17:38)
[2018-12-01 20:18] LABS: Basophils % 0.3 %; Eosinophils # 0.2 K/mcL (0.0-0.6); Eosinophils % 6.1 %; Hematocrit 27.8 % (35.3-44.9); Lymphocytes % 27.3 %; Mean Corpuscular HGB Conc 32.4 g/dL (31.6-35.5); Mean Corpuscular Hemoglobin 34.1 pg (28.0-33.3); Mean Corpuscular Volume 105.3 fL (83.0-100.0); Mean Platelet Volume 10.8 fL (9.4-12.4); Monocytes # 0.6 K/mcL (0.0-1.3); Monocytes % 15.2 %; Neutrophils # 1.9 K/mcL (1.6-8.9); Platelet Count 143 K/mcL (140-400); Red Blood Count 2.64 M/mcL (3.82-4.97); Red Cell Distribution Width 12.5 % (11.5-14.5); Segmented Neutrophils % 51.1 %
[2018-12-02 05:48] LABS: Calcium 8.7 mg/dL (8.6-10.3); Magnesium 2.2 mg/dL (1.6-2.6); Phosphorous 3.4 mg/dL (2.7-4.5); Potassium 3.5 mEq/L (3.5-5.1)
[2018-12-02] MEDS: Pantoprazole 40 MG VIAL IVP SCH (06:17)
[2018-12-02] MEDS ORDERED: Levothyroxine 25 MCG TABLET PO SCH (06:30)
[2018-12-02 08:04] LABS: Hematocrit 29.6 % (35.3-44.9); Hemoglobin 9.7 g/dL (11.5-15.4); Mean Corpuscular HGB Conc 32.8 g/dL (31.6-35.5); Mean Corpuscular Hemoglobin 34.5 pg (28.0-33.3); Mean Corpuscular Volume 105.3 fL (83.0-100.0); Mean Platelet Volume 11.6 fL (9.4-12.4); Platelet Count 150 K/mcL (140-400); Red Blood Count 2.81 M/mcL (3.82-4.97); Red Cell Distribution Width 12.5 % (11.5-14.5)
[2018-12-02] MEDS ORDERED: amLODIPine 5 MG TABLET PO SCH (09:00)
--- NOTE | 2018-12-02 09:29 | Discharge Summary ---
Orders not resulted at time of discharge: Pending orders 12/01/18 10:59 C diff [C.difficile Toxin PCR (>=2yo)] [MOLMIC] Stat 12/01/18 11:51 Culture,Urine [RM] Stat Date of Encounter: 12/02/18 Time of Encounter: 09:25 - Discharge Diagnosis (1) Lower GI bleed Priority: Primary Status: Suspected (2) Acute renal failure superimposed on stage 3 chronic kidney disease Priority: Secondary Status: Resolved Qualifiers: Acute renal failure type: unspecified Qualified Code(s): N17.9 - Acute kidney failure, unspecified; N18.3 - Chronic kidney disease, stage 3 (moderate) (3) DVT prophylaxis Priority: Secondary Status: Acute (4) Anemia Priority: Secondary Status: Chronic Qualifiers: Anemia type: unspecified type Qualified Code(s): D64.9 - Anemia, unspecified (5) Dementia Priority: Secondary Status: Chronic Qualifiers: Dementia type: unspecified type Dementia behavioral disturbance: without behavioral disturbance Qualified Code(s): F03.90 - Unspecified dementia without behavioral disturbance (6) Essential (primary) hypertension Priority: Secondary Status: Chronic (7) Hyperlipidemia Priority: Secondary Status: Chronic Qualifiers: Hyperlipidemia type: unspecified Qualified Code(s): E78.5 - Hyperlipidemia, unspecified (8) Hypothyroidism Priority: Secondary Status: Chronic Qualifiers: Hypothyroidism type: unspecified Qualified Code(s): E03.9 - Hypothyroidism, unspecified (9) Congestive heart failure Priority: Secondary Status: Chronic Qualifiers: Heart failure type: unspecified Heart failure chronicity: chronic Qualified Code(s): I50.9 - Heart failure, unspecified Hospital course: Ms. Nice is a 88 year old female PMH of CHF, dementia, hyperlipidemia, hypertension, CKD. Patient was brought to the hospital due to bloody diarrhea. Per patient daughter the patient had one episode of blood diarrhea at home, described as bright read blood. Since that episode, the patient had not move her bowel. H&H monitor for 24 HRs with no drop in H&H. Patient was also found to have a mild ROSS, was started on IV fluids with creat back to WNL. GI was consulted: recommended outpatient work up. Patient is hemodynamically stable to be discharged home with home services. - Time Spent with Patient Total time spent providing and/or coordinating discharge services: Time spent: Greater than 30 minutes (35) - Discharge Medications Prescriptions: Continued Donepezil [Aricept] 10 mg PO HS Cranberry Fruit Extract [Cranberry] 405 mg PO DAILY Atenolol [Tenormin] 100 mg PO DAILY Ferrous Sulfate 325 mg PO BID Aspirin 81 mg PO DAILY tab.chew amLODIPine [Norvasc] 5 mg PO DAILY Anastrozole [Arimidex] 1 mg PO DAILY 30 Days #30 tablet Docusate [Colace] 100 mg PO BID PRN PRN Reason: Constipation Lactose-Reduced Food [Boost] 237 ml PO AD Levothyroxine Sodium [Levo-T] 25 mcg PO QAM Cholecalciferol (D-3) [Vitamin D] 2,000 unit PO DAILY Polyethylene Glycol 3350 [MiraLAX] 17 gm PO DAILY Ranitidine Oral Soln [Zantac] 75 mg PO BID Promethazine [Phenergan] 25 mg PO Q6H PRN PRN Reason: Nausea And Vomiting Multivit-Min/FA/Lycopen/Lutein [Adults 50+ Multivitamin Tablet] 1 each PO DAILY Memantine HCl [Namenda Xr] 21 mg PO DAILY Home Medications: Atenolol [Tenormin] 100 mg PO DAILY 10/29/15 [History] Cranberry Fruit Extract [Cranberry] 405 mg PO DAILY 10/29/15 [History] Donepezil [Aricept] 10 mg PO HS 10/29/15 [History] Ferrous Sulfate 325 mg PO BID 02/28/16 [History] Aspirin 81 mg PO DAILY tab.chew 03/02/16 [Rx] amLODIPine [Norvasc] 5 mg PO DAILY 06/03/18 [History] Anastrozole [Arimidex] 1 mg PO DAILY 30 Days #30 tablet 06/10/18 [Rx] Docusate [Colace] 100 mg PO BID PRN 10/02/18 [History] Cholecalciferol (D-3) [Vitamin D] 2,000 unit PO DAILY 11/23/18 [History] Lactose-Reduced Food [Boost] 237 ml PO AD 11/23/18 [History] Levothyroxine Sodium [Levo-T] 25 mcg PO QAM 11/23/18 [History] Memantine HCl [Namenda Xr] 21 mg PO DAILY 11/23/18 [History] Multivit-Min/FA/Lycopen/Lutein [Adults 50+ Multivitamin Tablet] 1 each PO DAILY 11/23/18 [History] Polyethylene Glycol 3350 [MiraLAX] 17 gm PO DAILY 11/23/18 [History] Promethazine [Phenergan] 25 mg PO Q6H PRN 11/23/18 [History] Ranitidine Oral Soln [Zantac] 75 mg PO BID 11/23/18 [History] Allergies/Adverse Reactions: Allergy/AdvReac Type Severity Reaction Status Date / Time ciprofloxacin [From Cipro] AdvReac Diarrhea Verified 11/23/18 14:35 Date of admission: 12/01/18 13:04 Primary care physician: Karen Salomon CNP Consults: 12/01/18 12:28 Consult to Gastroenterology [CONS] Routine Consulting Provider: Gastroenterology Gretel Reason for Consult: blood in the stool Call Completed: No 12/01/18 15:19 Consult to Accounts Administrator [CONS] Routine Reason for SW Consult: Discharge planning, home with daughter. - Constitutional Vitals: Temp Pulse Resp BP Pulse Ox 97.7 F 48 16 131/70 98 12/02/18 05:33 12/02/18 05:33 12/02/18 05:33 12/02/18 05:33 12/02/18 05:33 Exam: Vitals: Reviewed General: Alert and oriented to person, not time or place. No distress. pleasantly demented. HEENT: Mucus membrane moist Cardiovascular: RRR, normal S1 & S2, no rubs, murmurs or gallops. No JVD. Pulse regular. Lungs: CTA b/l, no wheezes or crackles. Abdomen: Soft, non-tender, no rigidity. Extremities: No edema Neurological: No acute focal neurological abnormalities Rest of the physical exam is non contributory - Patient Status Disposition: Home Health Service Condition: Fair Functional capacity at discharge: independent ambulation Overall status at discharge: patient is back to baseline - Discharge Instructions Follow Up With: Karen Salomon CNP [Primary Care Provider] - (Web request. Office will call patient with date and time of appointment. Thank you) - Diet and Activity Activity: as per physical therapy Diet: low salt diet
--- NOTE | 2018-12-02 09:32 | Physician Discharge Referral ---
Home Health/Hosp Referral Info Transfer to: Home Health - Diagnosis (1) Lower GI bleed Priority: Primary Status: Suspected (2) Acute renal failure superimposed on stage 3 chronic kidney disease Priority: Secondary Status: Resolved (3) DVT prophylaxis Priority: Secondary Status: Acute (4) Anemia Priority: Secondary Status: Chronic (5) Dementia Priority: Secondary Status: Chronic (6) Essential (primary) hypertension Priority: Secondary Status: Chronic (7) Hyperlipidemia Priority: Secondary Status: Chronic (8) Hypothyroidism Priority: Secondary Status: Chronic (9) Congestive heart failure Priority: Secondary Status: Chronic - Respiratory Orders None Smoking Cessation: Smoking cessation has been advised. For more information, call the [place] Tobacco Quit Line at 6-083-EEYJ-NOW. - Diet/Nutrition Diet/Nutrition Orders: Regular - Activity Activity Orders: Ambulate - Services Needed Following services are medically necessary services: Home Health Aide, Physical Therapy, Occupational Therapy - Transfer Medications Home Medications: Atenolol [Tenormin] 100 mg PO DAILY 10/29/15 [History] Cranberry Fruit Extract [Cranberry] 405 mg PO DAILY 10/29/15 [History] Donepezil [Aricept] 10 mg PO HS 10/29/15 [History] Ferrous Sulfate 325 mg PO BID 02/28/16 [History] Aspirin 81 mg PO DAILY tab.chew 03/02/16 [Rx] amLODIPine [Norvasc] 5 mg PO DAILY 06/03/18 [History] Anastrozole [Arimidex] 1 mg PO DAILY 30 Days #30 tablet 06/10/18 [Rx] Docusate [Colace] 100 mg PO BID PRN 10/02/18 [History] Cholecalciferol (D-3) [Vitamin D] 2,000 unit PO DAILY 11/23/18 [History] Lactose-Reduced Food [Boost] 237 ml PO AD 11/23/18 [History] Levothyroxine Sodium [Levo-T] 25 mcg PO DAILY 11/23/18 [History] Memantine HCl [Namenda Xr] 21 mg PO DAILY 11/23/18 [History] Multivit-Min/FA/Lycopen/Lutein [Adults 50+ Multivitamin Tablet] 1 each PO DAILY 11/23/18 [History] Polyethylene Glycol 3350 [MiraLAX] 17 gm PO DAILY 11/23/18 [History] Promethazine [Phenergan] 25 mg PO Q6H PRN 11/23/18 [History] Ranitidine Oral Soln [Zantac] 75 mg PO DAILY 11/23/18 [History] Allergies/Adverse Reactions: Allergy/AdvReac Type Severity Reaction Status Date / Time ciprofloxacin [From Cipro] AdvReac Diarrhea Verified 11/23/18 14:35 Certification: Further, I certify that my clinical findings support that this patient is homebound (i.e. absences from home require considerable and taxing effort and are for medical reasons or islam services or infrequently or short duration when for other reasons) because: Homebound Reason: Patient requires assistance of a person or device to safely leave home Attestation: My signature below is to certify that this patient is under my care and that I, or nurse practitioner, or a physician's high school assistant football coach working with me, has a [id number] encounter with this patient.
[2018-12-02 11:38] VITALS: BP 135/74
--- NOTE | 2018-12-02 14:52 | Gastroenterology Consult Note ---
Date of Encounter: 12/02/18 Time of Encounter: 11:10 - Assessment and plan (1) BRBPR (bright red blood per rectum) Current Visit: Yes Status: Acute Assessment and plan: CT A/P showed possible gallbladder sludge/stone but no acute inflammatory process noted. Hgb 9.5 on admission and this morning Hgb 9.7. Baseline Hgb 9-10. No further episodes of bleeding. Plan for colonoscopy as outpatient. Follow up with Dr. Arechiga in 2-3 weeks. - Time Spent With Patient Total time spent is greater than 50% in coordination of care (as documented) at patient's floor/unit and/or counseling patient: GI History of Present Illness - Data of Consult Patient: new to practice Consult date: 12/02/18 Requesting Physician: Roberto Spivey MD - Consult Narrative Reason for consult: BRBPR History of present illness: Ms. Nice is a 88 year old female with PMHx of dementia, hyperlipidemia, hypertension, CKD who was brought to the hospital due to one episode of bloody diarrhea. Information by cheart review and daughter at bedside. Daughter states the patient has never had rectal bleeding before. The patient normally has daily BM and on 12/01 had one episode of BRBPR. She has had no further episodes of BRBPR . CT A/P showed possible gallbladder sludge/stone but no acute inflammatory process noted. Hgb 9.5 on admission and this morning Hgb 9.7. Baseline Hgb 9-10. Procedures: EGD 06/01/2008 Dr. Singer: Gastritis. NSAIDs: ASA Anticoagulation: None Past Med Surg Social Fam HX - Past Medical History Medical history: cancer, CHF, dementia, hyperlipidemia, hypertension, renal disease, other Additional medical history: right breast cancer Psychiatric history: no psych history - Past Surgical History Surgical History: orthopedic, other, other, vascular surgery Additional surgical history: vein stripping. left wrist - Social History Smoking Status: Never smoker Smokeless Tobacco Status: No Alcohol use: none Drug use: none - Family History Mother Living Status: Hx Family Cardiac Disorders: Yes - Gastrointestinal Gastrointestinal: Present: as per HPI - Constitutional Constitutional: as per HPI - EENT Eyes: as per HPI Ears: Present: as per HPI Nose, mouth and throat: Present: as per HPI - Cardiovascular Cardiovascular ROS: Present: as per HPI - Respiratory Respiratory IM: Present: as per HPI - Genitourinary Genitourinary: Absent: change in color, Urinary frequency - Neurological ROS Neurological GI: Present: as per HPI - Hematologic/Lymphatic Hematologic/Lymphatic pediatric: Present: as per HPI - Musculoskeletal Musculoskeletal ROS GI: Present: as per HPI - Integumentary Integumentary GI: Present: as per HPI - Psychiatric ROS Psychiatric GI: Present: as per HPI - Endocrine Endocrine IM: Present: as per HPI - Constitutional Vitals: Temp Pulse Resp BP Pulse Ox 98.2 F 49 16 135/74 97 12/02/18 11:30 12/02/18 11:30 12/02/18 11:30 12/02/18 11:30 12/02/18 11:30 General appearance: Present: cooperative, A&O X 1, no acute distress - Head Head exam: Present: atraumatic, normocephalic - Eye Eye exam: Present: normal appearance, sclera anicteric - ENT ENT exam: Present: mucous membranes dry - Neck Neck exam general surgery: Present: normal inspection, trachea midline - Respiratory Respiratory exam: Present: CTAB. Absent: rales, rhonchi, wheezes - Cardiovascular Cardiovascular exam: Present: RRR, +S1, +S2 - GI/Abdominal GI/Abdominal exam: Present: soft, no peritoneal signs. Absent: distended, firm, guarding, tenderness - Rectal Rectal exam: Present: deferred - Extremities Exam Extremities exam: Present: warm - Neurological Exam Neurological exam: Present: no focal deficits - Psychiatric Psychiatric exam: Present: normal affect, normal mood - Skin Skin exam: Present: dry, intact, normal color, warm Results - Labs CBC & Chem 7: 12/02/18 04:54 12/02/18 04:54 Labs: Last Result 12/02/18 04:54 Calcium 8.7 Entire Visit 12/02/18 04:54 Hgb 9.7 L Hct 29.6 L - ABG ABG results: PT/INR, D-dimer PT 11.9 Seconds (9.4-12.1) 12/01/18 10:24 Consult Discharge Plan - Plan Referrals: Karen Salomon, FUEL RETROFITTING TECHNICIAN [Primary Care Provider] - (Web request. Office will call patient with date and time of appointment. Thank you)
== END 2018-12-02 18:12 | disposition home or self-care (01) ==
LOC: 3ANU 09:47 → EMEROOARM 09:47 → SUATTDRO 13:04 → 3ANU 14:15
PROVIDERS: ADMIT Internal Medicine; ATTEND Internal Medicine

== ENCOUNTER 2019-01-12 16:49 | Observation (INO) ==
--- NOTE | 2019-01-12 17:03 | Emergency Department Note ---
Disposition Clinical Impression: Altered mental status Qualifiers: Altered mental status type: unspecified Qualified Code(s): R41.82 - Altered mental status, unspecified Disposition: Admitted As Inpatient Condition: Good Time of Disposition: 21:16 General Adult HPI - General Stated complaint: General weakness Time Seen by Provider: 01/12/19 16:54 Source: patient, family Mode of arrival: ambulatory Limitations: altered mental status (Patient demented at baseline) Nursing Notes Reviewed: Yes Vital Signs Reviewed: Yes - History of Present Illness HPI Narrative: 88-year-old female past medical history of heart failure, chronic kidney disease, hypertension, dementia presenting for 5 days of generalized malaise, lethargy, anorexia. Patient was treated proximal leg 5 days ago for a UTI with Macrobid. Daughter bedside says that since this time the patient has progressively become more lethargic and sleeps for most of the day. Daughter states she has not noted any unilateral weakness or any concerning signs for a focal neurological deficit just states that the patient has been less able to tolerate daily activities and has appeared more tired. Patient is only minimally able to respond history of present illness and review systems questioning but does note that she does not have any pain, specifically chest pain or abdominal pain nausea or vomiting. No headaches Onset (ago): day(s) - Related Data Home Medications Medication Instructions Recorded Confirmed Atenolol [Tenormin] 100 mg PO DAILY 10/29/15 01/12/19 Cranberry Fruit Extract [Cranberry] 405 mg PO DAILY 10/29/15 01/12/19 Donepezil [Aricept] 10 mg PO HS 10/29/15 01/12/19 Ferrous Sulfate 325 mg PO BID 02/28/16 01/12/19 amLODIPine [Norvasc] 5 mg PO DAILY 06/03/18 01/12/19 Docusate [Colace] 100 mg PO BID PRN 10/02/18 01/12/19 Cholecalciferol (D-3) [Vitamin D] 2,000 unit PO DAILY 11/23/18 01/12/19 Lactose-Reduced Food [Boost] 237 ml PO AD 11/23/18 01/12/19 Levothyroxine Sodium [Levo-T] 25 mcg PO QAM 11/23/18 01/12/19 Memantine HCl [Namenda Xr] 21 mg PO DAILY 11/23/18 01/12/19 Multivit-Min/FA/Lycopen/Lutein 1 each PO DAILY 11/23/18 01/12/19 [Adults 50+ Multivitamin Tablet] Polyethylene Glycol 3350 [MiraLAX] 17 gm PO DAILY 11/23/18 01/12/19 Ranitidine Oral Soln [Zantac] 75 mg PO BID 11/23/18 01/12/19 Previous Rx's Medication Instructions Recorded Aspirin 81 mg PO DAILY tab.chew 03/02/16 Anastrozole [Arimidex] 1 mg PO DAILY 30 Days #30 tablet 06/10/18 Allergies Allergy/AdvReac Type Severity Reaction Status Date / Time ciprofloxacin [From Cipro] AdvReac Diarrhea Verified 11/23/18 14:35 Review of Systems: Patient only minimally able to take part in review of systems/history of present illness questioning. Patientshe has no headache, no chest pain, no shortness of breath abdominal pain nausea or vomiting. All systems ED: reviewed and negative except as stated. 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 Anterior neck is supple without swelling. *Chest: Symmetric chest wall rise *Heart: Cardiac rhythm and rate are regular with S1 and S2 , no S3 or S4 appreciated, no murmurs, gallops, rubs, or clicks. *Lungs: Lungs are clear to auscultation bilaterally, without accessory muscle use or prolonged expiratory phase. No wheezes, rhonchi or stridor appreciated. Abdomen: Abdomen is flat, soft to palpation, normal bowel sounds. No abdominal bruit auscultated. Non-distended, non-rigid, no organomegaly, no ascites appreciated. No pulsatile mass, no tenderness or guarding to palpation in all four quadrants, no rebound Extremities: Normal capillary refill without evidence of pedal edema, joint swelling or erythema. Pulses/motor intact in all 4 extremities. Psychiatric exam: Patient displays a normal affect and mood for the environment. No overt signs of hallucination. Integumentary: warm, dry, intact, normal color. No rash, cyanosis, diaphoresis, erythema, or pallor - General Limitations: altered mental status General appearance: alert, in no apparent distress Course Course Narrative: Labs including CBC, chemistries, coags, urinalysis, C. difficile workup, CT scan abdomen pelvis Broad-spectrum antibiotics Vital Signs Temperature 98.2 F 01/12/19 16:53 Pulse Rate 50 01/12/19 16:53 Respiratory Rate 14 01/12/19 16:53 Blood Pressure 178/70 01/12/19 16:53 O2 Sat by Pulse Oximetry 97 01/12/19 16:53 Temperature 98.2 F 01/12/19 17:06 Pulse Rate 49 01/12/19 17:06 Respiratory Rate 12 01/12/19 17:06 Blood Pressure 178/70 01/12/19 17:06 O2 Sat by Pulse Oximetry 98 01/12/19 17:06 Oxygen Delivery Oxygen Delivery Room Air Medical Decision Making - [facility] Narrative Medical decision making narrative: Urinalysis shows UTI which is failed outpatient therapy There is a fecal impaction noted on CT scan, Otherwise laboratory, imaging, EKG showed no acute pathology. Patient be admitted to hospitalist medicine service for further evaluation and management of symptomatic urinary tract infection which is failed outpatient therapy. Patient and her daughter at bedside verbalizes understanding and agreement with this plan. Patient is hemodynamically stable time of admission. Dr. Bo accepting admission. - Lab Data Lab results reviewed: Yes I reviewed the patient's lab results. Result diagrams: 01/12/19 17:30 01/12/19 17:30 Lab Results 01/12/19 01/12/19 01/12/19 Range/Units 17:30 17:30 17:30 WBC 5.4 (4.3-11.1) K/mcL RBC 3.24 L (3.82-4.97) M/mcL Hgb 11.1 L (11.5-15.4) g/dL Hct 33.5 L (35.3-44.9) % MCV 103.4 H (83.0-100.0) fL MCH 34.3 H (28.0-33.3) pg MCHC 33.1 (31.6-35.5) g/dL RDW 12.6 (11.5-14.5) % Plt Count 148 (140-400) K/mcL MPV 10.6 (9.4-12.4) fL Immature Gran % 0.4 (0-4) % Seg Neutrophils % 65.6 % Lymphocytes % 18.9 % Monocytes % 11.7 % Eosinophils % 3.0 % Basophils % 0.4 % Neutrophils # 3.6 (1.6-8.9) K/mcL Lymphocytes # 1.0 (0.6-4.6) K/mcL Monocytes # 0.6 (0.0-1.3) K/mcL Eosinophils # 0.2 (0.0-0.6) K/mcL Basophils # 0.0 (0.0-0.2) K/mcL PT 11.2 (9.4-12.1) Seconds INR 1.0 APTT 28.8 (26.0-36.0) Seconds Sodium 141 (136-145) mEq/L Potassium 3.7 (3.5-5.1) mEq/L Chloride 105 (98-107) mEq/L Carbon Dioxide 24 (23-29) mEq/L BUN 24 H (8-23) mg/dL Creatinine 1.24 H (0.60-1.20) mg/dL Est GFR ( Amer) 50 L (> 60) Est GFR (Non-Af Amer) 41 L (> 60) BUN/Creatinine Ratio 19 (6-26) Glucose 103 (70-105) mg/dL Calculated Osmolality 296 (280-300) Lactic Acid (0.5-2.2) mmol/L Calcium 9.1 (8.6-10.3) mg/dL Total Bilirubin 0.5 (0.3-1.0) mg/dL Direct Bilirubin 0.1 (0.0-0.2) mg/dL Indirect Bilirubin 0.4 (0.0-1.2) mg/dL AST 17 (13-39) Units/L ALT 7 (7-52) Units/L Alkaline Phosphatase 67 (34-104) Units/L Troponin I 0.03 (< 0.04) ng/mL Serum Total Protein 5.5 L (6.4-8.9) g/dL Albumin 3.2 L (3.5-5.7) g/dL Globulin 2.3 L (2.4-3.5) g/dL Albumin/Globulin Ratio 1.4 (1.1-2.2) TSH 2.793 (0.340-5.600) mcIU/mL Urine Color (Yellow) Urine Clarity (Clear) Urine pH (5.0-8.0) pH Units Ur Specific Fred (1.010-1.025) Urine Protein (Neg-Trace) mg/dL Urine Glucose (UA) (Normal) mg/dL Urine Ketones (Negative) mg/dL Urine Blood (Negative) Urine Nitrite (Negative) Urine Bilirubin (Negative) Urine Urobilinogen (Normal) mg/dL Ur Leukocyte Esterase (Negative) Urine Microscopic RBC (0-3) per hpf Urine Microscopic WBC (0-3) per hpf Ur Squamous Epith Cells (None-Few) per lpf Urine Bacteria (None-Few) per hpf Hyaline Casts (None-Few) per lpf Ur Culture Indicated? (NO) Urine Opiates Screen (Npcoht=764) ng/mL Ur Barbiturates Screen (Jffgkb=868) ng/mL Ur Phencyclidine Scrn (Cutoff=25) ng/mL Ur Amphetamines Screen (Tdyvfm=2328) ng/mL U Benzodiazepines Scrn (Xwlgyl=314) ng/mL Urine Cocaine Screen (Cutoff= 300) ng/mL U Marijuana (THC) Screen (Cutoff = 50) ng/mL Ur Drug Screen Interp Ethyl Alcohol < 10 (Less than 10) mg/dL 01/12/19 01/12/19 01/12/19 Range/Units 17:30 18:05 18:05 WBC (4.3-11.1) K/mcL RBC (3.82-4.97) M/mcL Hgb (11.5-15.4) g/dL Hct (35.3-44.9) % MCV (83.0-100.0) fL MCH (28.0-33.3) pg MCHC (31.6-35.5) g/dL RDW (11.5-14.5) % Plt Count (140-400) K/mcL MPV (9.4-12.4) fL Immature Gran % (0-4) % Seg Neutrophils % % Lymphocytes % % Monocytes % % Eosinophils % % Basophils % % Neutrophils # (1.6-8.9) K/mcL Lymphocytes # (0.6-4.6) K/mcL Monocytes # (0.0-1.3) K/mcL Eosinophils # (0.0-0.6) K/mcL Basophils # (0.0-0.2) K/mcL PT (9.4-12.1) Seconds INR APTT (26.0-36.0) Seconds Sodium (136-145) mEq/L Potassium (3.5-5.1) mEq/L Chloride (98-107) mEq/L Carbon Dioxide (23-29) mEq/L BUN (8-23) mg/dL Creatinine (0.60-1.20) mg/dL Est GFR ( Amer) (> 60) Est GFR (Non-Af Amer) (> 60) BUN/Creatinine Ratio (6-26) Glucose (70-105) mg/dL Calculated Osmolality (280-300) Lactic Acid 1.4 (0.5-2.2) mmol/L Calcium (8.6-10.3) mg/dL Total Bilirubin (0.3-1.0) mg/dL Direct Bilirubin (0.0-0.2) mg/dL Indirect Bilirubin (0.0-1.2) mg/dL AST (13-39) Units/L ALT (7-52) Units/L Alkaline Phosphatase (34-104) Units/L Troponin I (< 0.04) ng/mL Serum Total Protein (6.4-8.9) g/dL Albumin (3.5-5.7) g/dL Globulin (2.4-3.5) g/dL Albumin/Globulin Ratio (1.1-2.2) TSH (0.340-5.600) mcIU/mL Urine Color Yellow (Yellow) Urine Clarity Clear (Clear) Urine pH 6.5 (5.0-8.0) pH Units Ur Specific Fred 1.010 (1.010-1.025) Urine Protein 30 H (Neg-Trace) mg/dL Urine Glucose (UA) Normal (Normal) mg/dL Urine Ketones Trace H (Negative) mg/dL Urine Blood Negative (Negative) Urine Nitrite Negative (Negative) Urine Bilirubin Negative (Negative) Urine Urobilinogen Normal (Normal) mg/dL Ur Leukocyte Esterase Large H (Negative) Urine Microscopic RBC 5-15 H (0-3) per hpf Urine Microscopic WBC TNTC H (0-3) per hpf Ur Squamous Epith Cells Many H (None-Few) per lpf Urine Bacteria None Seen (None-Few) per hpf Hyaline Casts None Seen (None-Few) per lpf Ur Culture Indicated? YES A (NO) Urine Opiates Screen Negative (Lfcjtq=695) ng/mL Ur Barbiturates Screen Negative (Iimequ=105) ng/mL Ur Phencyclidine Scrn Negative (Cutoff=25) ng/mL Ur Amphetamines Screen Negative (Iczgkr=6948) ng/mL U Benzodiazepines Scrn Negative (Bjewch=848) ng/mL Urine Cocaine Screen Negative (Cutoff= 300) ng/mL U Marijuana (THC) Screen Negative (Cutoff = 50) ng/mL Ur Drug Screen Interp See Below Ethyl Alcohol (Less than 10) mg/dL - Radiology Data Radiology results reviewed: Yes I reviewed the patient's radiology results. Chest X-Ray 01/12/19 17:00 IMPRESSION: 1. Technically limited LPO projection with the patient's chin and neck obscuring the left lung apex. 2. No definite acute pulmonary disease. 3. Calcific atherosclerosis aorta. 4. Cardiomegaly. Follow-up full inspiration PA and lateral chest may be useful for better characterization of pulmonary findings. D/ / Naveed Shea / Naveed Shea Interpreting Provider: Naveed Shea Abdomen/Pelvis CT 01/12/19 18:55 IMPRESSION: 1. Large amount of stool within the rectum can be seen with fecal impaction. 2. No acute abnormality. 3. Bilateral renal calculi. 4. Small bilateral pleural effusions. D/ / Vickey Durham MD / Vickey Durham MD Interpreting Provider: Vickey Durham MD - EKG Data EKG #1 EKG attestation: Yes I reviewed and interpreted this EKG. EKG results narrative: Patient EKG shows sinus bradycardia with a heart rate of 49 bpm, MN interval of 190 ms, QRS duration of 95 ms, QT/QTc intervals 438/396 ms respectively. There are no significant ST segment elevations, depressions, pathologic Q waves, there are abnormal T-wave inversions noted in lead aVL, which appear isolated this lead and consistent with prior, there are no signs of acute ischemic change. This EKG performed today is generally consistent with prior EKG performed 11/16/2018.
--- NOTE | 2019-01-12 17:41 | Emergency Department Note ---
Disposition Clinical Impression: Altered mental status Qualifiers: Altered mental status type: unspecified Qualified Code(s): R41.82 - Altered mental status, unspecified Disposition: Admitted As Inpatient Condition: Good Referrals: Karen Salomon CNP [Primary Care Provider] - Time of Disposition: 17:41 General Adult HPI - General Chief complaint: ED General Medical Stated complaint: General weakness Time Seen by Provider: 01/12/19 16:54 Source: patient - History of Present Illness Pain Scale: 0 - Related Data Home Medications Medication Instructions Recorded Confirmed Atenolol [Tenormin] 100 mg PO DAILY 10/29/15 12/02/18 Cranberry Fruit Extract [Cranberry] 405 mg PO DAILY 10/29/15 12/02/18 Donepezil [Aricept] 10 mg PO HS 10/29/15 12/02/18 Ferrous Sulfate 325 mg PO BID 02/28/16 12/02/18 amLODIPine [Norvasc] 5 mg PO DAILY 06/03/18 12/02/18 Docusate [Colace] 100 mg PO BID PRN 10/02/18 12/02/18 Cholecalciferol (D-3) [Vitamin D] 2,000 unit PO DAILY 11/23/18 12/02/18 Lactose-Reduced Food [Boost] 237 ml PO AD 11/23/18 12/01/18 Levothyroxine Sodium [Levo-T] 25 mcg PO QAM 11/23/18 12/02/18 Memantine HCl [Namenda Xr] 21 mg PO DAILY 11/23/18 12/02/18 Multivit-Min/FA/Lycopen/Lutein 1 each PO DAILY 11/23/18 12/02/18 [Adults 50+ Multivitamin Tablet] Polyethylene Glycol 3350 [MiraLAX] 17 gm PO DAILY 11/23/18 12/02/18 Promethazine [Phenergan] 25 mg PO Q6H PRN 11/23/18 12/02/18 Ranitidine Oral Soln [Zantac] 75 mg PO BID 11/23/18 12/02/18 Previous Rx's Medication Instructions Recorded Aspirin 81 mg PO DAILY tab.chew 03/02/16 Anastrozole [Arimidex] 1 mg PO DAILY 30 Days #30 tablet 06/10/18 Allergies Allergy/AdvReac Type Severity Reaction Status Date / Time ciprofloxacin [From Cipro] AdvReac Diarrhea Verified 11/23/18 14:35 Past Medical History - Past Medical History Medical history: Reports: cancer, CHF, dementia, hyperlipidemia, hypertension, renal disease, other Surgical history: Reports: orthopedic, other, other, vascular surgery Psychiatric history: Reports: no psych history 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 - Social History Smoking Status: Never smoker Smokeless Tobacco Status: No Alcohol use: Reports: none Drug use: Reports: none Physical Exam - General General appearance: alert Course Vital Signs Temperature 98.2 F 01/12/19 16:53 Pulse Rate 50 01/12/19 16:53 Respiratory Rate 14 01/12/19 16:53 Blood Pressure 178/70 01/12/19 16:53 O2 Sat by Pulse Oximetry 97 01/12/19 16:53 Temperature 98.2 F 01/12/19 17:06 Pulse Rate 49 01/12/19 17:06 Respiratory Rate 12 01/12/19 17:06 Blood Pressure 178/70 01/12/19 17:06 O2 Sat by Pulse Oximetry 98 01/12/19 17:06 Oxygen Delivery Oxygen Delivery Room Air Attestation Statement - Attestation Attestation: I examined this patient and my medical decision-making was reviewed with the Resident Physician. I agree with the documented findings, disposition and treatment plan as described except to the extent set forth below. 88 year old female presents to the ED via EMS from private home with daughter at bedside. She has a history of c.diff and othewrise is currenlty being treated for UTI. Elvis has a histroy of dementia and otherwise is oriented only ot person at this time. Elvis denies pain at this time. wE will search for infectiosu source of worsening dementia and gregory admit to medicne. Daughter states that she does appaer confused but not too far from her baseline and this is typically how she appears when she has a UTI
[2019-01-12 17:50] LABS: Basophils % 0.4 %; Eosinophils # 0.2 K/mcL (0.0-0.6); Hematocrit 33.5 % (35.3-44.9); Hemoglobin 11.1 g/dL (11.5-15.4); Immature Granulocytes % 0.4 % (0-4); Lymphocytes % 18.9 %; Mean Corpuscular HGB Conc 33.1 g/dL (31.6-35.5); Mean Corpuscular Hemoglobin 34.3 pg (28.0-33.3); Mean Corpuscular Volume 103.4 fL (83.0-100.0); Mean Platelet Volume 10.6 fL (9.4-12.4); Monocytes # 0.6 K/mcL (0.0-1.3); Monocytes % 11.7 %; Neutrophils # 3.6 K/mcL (1.6-8.9); Platelet Count 148 K/mcL (140-400); Red Blood Count 3.24 M/mcL (3.82-4.97); Red Cell Distribution Width 12.6 % (11.5-14.5); Segmented Neutrophils % 65.6 %; White Blood Count 5.4 K/mcL (4.3-11.1)
[2019-01-12 17:59] LABS: Prothrombin Time 11.2 Seconds (9.4-12.1)
[2019-01-12 18:01] LABS: Activated Partial Thrombo Time 28.8 Seconds (26.0-36.0)
[2019-01-12 18:10] LABS: Alanine Aminotransferase 7 Units/L (7-52); Albumin 3.2 g/dL (3.5-5.7); Albumin/Globulin Ratio 1.4 (1.1-2.2); Alkaline Phosphatase 67 Units/L (34-104); Aspartate Amino Transferase 17 Units/L (13-39); BUN/Creatinine Ratio 19 (6-26); Bilirubin,Direct 0.1 mg/dL (0.0-0.2); Bilirubin,Indirect 0.4 mg/dL (0.0-1.2); Bilirubin,Total 0.5 mg/dL (0.3-1.0); Blood Urea Nitrogen 24 mg/dL (8-23); Calcium 9.1 mg/dL (8.6-10.3); Carbon Dioxide 24 mEq/L (23-29); Chloride 105 mEq/L (98-107); Ethanol < 10 mg/dL (Less than 10); Globulin 2.3 g/dL (2.4-3.5); Glucose 103 mg/dL (70-105); Osmolality,Calculated 296 (280-300); Potassium 3.7 mEq/L (3.5-5.1); Sodium 141 mEq/L (136-145); Total Protein 5.5 g/dL (6.4-8.9); Troponin I 0.03 ng/mL (< 0.04); eGFR For African Americans 50 (> 60); eGFR For Non-African Americans 41 (> 60)
[2019-01-12 18:18] LABS: Bilirubin,Urine Negative (Negative); Blood,Urine Negative (Negative); Clarity,Urine Clear (Clear); Color,Urine Yellow (Yellow); Glucose,Urine (UA) Normal (Normal); Ketones,Urine Trace mg/dL (Negative); Leukocyte Esterase,Urine Large (Negative); Nitrite,Urine Negative (Negative); PH,Urine 6.5 pH Units (5.0-8.0); Protein,Urine 30 mg/dL (Neg-Trace); Urobilinogen,Urine Normal (Normal)
[2019-01-12 18:23] LABS: Bacteria,Urine None Seen per hpf (None-Few); Hyaline Casts,Urine None Seen per lpf (None-Few); Squamous Epithelial Cell,Urine Many per lpf (None-Few); WBC,Urine TNTC per hpf (0-3)
[2019-01-12 18:23] LABS: Thyroid Stimulating Hormone 2.793 mcIU/mL (0.340-5.600)
[2019-01-12 18:26] LABS: Amphetamine Screen,Urine Negative ng/mL (Cutoff=1000); Barbiturate Screen,Urine Negative ng/mL (Cutoff=200); Benzodiazepines Screen,Urine Negative ng/mL (Cutoff=200); Cannabinoid Screen,Urine Negative ng/mL (Cutoff = 50); Cocaine Screen,Urine Negative ng/mL (Cutoff= 300); Opiate Screen,Urine Negative ng/mL (Cutoff=300); Phencyclidine Screen,Urine Negative ng/mL (Cutoff=25)
[2019-01-12] MEDS ORDERED: Isovue-370 500 ML BOTTLE IVP ONE (18:55)
[2019-01-12] MEDS ORDERED: Piperacillin/Tazobactam 3.375 GM in 0.9 % Sodium Chloride Mini Bag 100 ML IVPB ONE (19:35)
[2019-01-12] MEDS ORDERED: Acetaminophen 325 MG TABLET PO PRN (21:17)
--- NOTE | 2019-01-12 22:31 | Internal Med History&Physical ---
Date of Encounter: 01/12/19 Time of Encounter: 22:29 Internal Medicine - H&P: HPI Chief complaint: ams Admitted From: Long-term Nursing Facility Plans for Post Hospital Care: Transfer Senior Living Facility History of present illness: Sary Nice is an 88-year-old woman with multiple comorbidities including grade 2 invasive ductal carcinoma of the right breast diagnosed in January 2017 receiving neoadjuvant hormone therapy treatment currently on Arimidex, dementia, frequent UTIs who has been admitted here a plethora of times mainly the complaint of worsening mental status and fatigue. She is again brought in by her daughter who states that she seems a bit more confused than her baseline and has not been eating or drinking much at the nursing facility. She says she was recently started on treatment with nitrofurantoin for a UTI. No fever or chills have been reported. She is unable to verbalize if she has any dysuria or abdominal pain. In the ER she was seen clinically and hemodynamically stable. Lab work was grossly unrevealing with normal hematologic and chemistry parameters but a UA showing large leukocyte esterase and pyuria. Of note her last urine culture from 6 days ago was negative. She received a dose of Zosyn and is admitted for further care. On my assessment she is clinically well appearing but not conversant. Vitals: Reviewed General: Obese white woman who is well-appearing and not in acute distress. Skin: Warm and supple. HEENT: Slightly dry mucous membranes. No conjunctivae pallor. Neck: No lymphadenopathy. No JVD. No carotid bruits. No palpable thyroid. Chest: Normal thoracic expansion. Normal breath sounds. Clear to auscultation. Heart: Normal S1 & S2; rhythmic. No rubs or murmurs. Abdomen: Non-distended, soft and non-tender to palpation. No peritoneal reaction. Extremities: No clubbing, cyanosis or edema. No calf tenderness. Normal distal pulses. Neurological: Does not respond to my commands. Psych: Affect flat. Assessment/Plan 1. Altered mental status: It is quite unclear what her baseline mental status is however as per her daughter her intake has just been poor and seemingly less conversant which prompted her concern for possible underlying infection. On my assessment she has no signs of skin/soft tissue infection or respiratory symp toms concerning for pneumonia nor positive x-ray. Her UA does indicate either a persistence or recent infection as she has no systemic signs of illness therefore we will discontinue Zosyn especially given her prior history of C. difficile infections. Pending urine culture she can be on oral amoxic illin/clavulanate in the interim until otherwise indicated by a change in her status or lab findings. Her mental status decline may be more secondary to dehydration than anything else therefore will give her fluids overnight and assess her response in the morning. 2. CKD: Stable. Avoid nephrotoxic agents. 3. Dementia: Continue donepezil and mematine. Frequent reorientation. 4. DVT prophylaxis: On mechanical prophylaxis due to GI bleed history from a month ago. Past Med Surg Social Fam HX - Past Medical History Medical history: cancer, CHF, dementia, hyperlipidemia, hypertension, renal disease, other Additional medical history: right breast cancer Psychiatric history: no psych history - Past Surgical History Surgical History: orthopedic, other, other, vascular surgery Additional surgical history: 2011 Wrist Fx - Social History Smoking Status: Never smoker Smokeless Tobacco Status: No Alcohol use: none Drug use: none - Family History Mother Living Status: Hx Family Cardiac Disorders: Yes Internal Medicine - H&P: Meds Atenolol [Tenormin] 100 mg PO DAILY 10/29/15 [History] Cranberry Fruit Extract [Cranberry] 405 mg PO DAILY 10/29/15 [History] Donepezil [Aricept] 10 mg PO HS 10/29/15 [History] Ferrous Sulfate 325 mg PO BID 02/28/16 [History] Aspirin 81 mg PO DAILY tab.chew 03/02/16 [Rx] amLODIPine [Norvasc] 5 mg PO DAILY 06/03/18 [History] Anastrozole [Arimidex] 1 mg PO DAILY 30 Days #30 tablet 06/10/18 [Rx] Docusate [Colace] 100 mg PO BID PRN 10/02/18 [History] Cholecalciferol (D-3) [Vitamin D] 2,000 unit PO DAILY 11/23/18 [History] Lactose-Reduced Food [Boost] 237 ml PO AD 11/23/18 [History] Levothyroxine Sodium [Levo-T] 25 mcg PO QAM 11/23/18 [History] Memantine HCl [Namenda Xr] 21 mg PO DAILY 11/23/18 [History] Multivit-Min/FA/Lycopen/Lutein [Adults 50+ Multivitamin Tablet] 1 each PO DAILY 11/23/18 [History] Polyethylene Glycol 3350 [MiraLAX] 17 gm PO DAILY 11/23/18 [History] Ranitidine Oral Soln [Zantac] 75 mg PO BID 11/23/18 [History] Allergy/AdvReac Type Severity Reaction Status Date / Time ciprofloxacin [From Cipro] AdvReac Diarrhea Verified 11/23/18 14:35 All Systems PM: A 10-system review of systems was performed and is negative for pertinent findings except as documented above in the HPI. - Constitutional Vitals: Temp Pulse Resp BP Pulse Ox 98.2 F 51 14 163/74 98 01/12/19 17:06 01/12/19 22:26 01/12/19 22:26 01/12/19 22:26 01/12/19 22:26 Exam: . Internal Med - H&P Results - Labs CBC & Chem 7: 01/12/19 17:30 01/12/19 17:30 Labs: Short CBC 01/12/19 Range/Units 17:30 WBC 5.4 (4.3-11.1) K/mcL Hgb 11.1 L (11.5-15.4) g/dL Hct 33.5 L (35.3-44.9) % Plt Count 148 (140-400) K/mcL Neutrophils # 3.6 (1.6-8.9) K/mcL BMP 01/12/19 17:30 Sodium 141 Potassium 3.7 Chloride 105 Carbon Dioxide 24 BUN 24 H Creatinine 1.24 H Glucose 103 Calcium 9.1 Cardiac Enzymes 01/12/19 Range/Units 17:30 Troponin I 0.03 (< 0.04) ng/mL Liver Function 01/12/19 Range/Units 17:30 Total Bilirubin 0.5 (0.3-1.0) mg/dL Direct Bilirubin 0.1 (0.0-0.2) mg/dL AST 17 (13-39) Units/L ALT 7 (7-52) Units/L Alkaline Phosphatase 67 (34-104) Units/L Albumin 3.2 L (3.5-5.7) g/dL Urine 01/12/19 Range/Units 18:05 Urine Color Yellow (Yellow) Urine Clarity Clear (Clear) Urine pH 6.5 (5.0-8.0) pH Units Ur Specific [place] 1.010 (1.010-1.025) Urine Protein 30 H (Neg-Trace) mg/dL Urine Glucose (UA) Normal (Normal) mg/dL - Impressions ITS Impressions Chest X-Ray 01/12/19 17:00 IMPRESSION: 1. Technically limited LPO projection with the patient's chin and neck obscuring the left lung apex. 2. No definite acute pulmonary disease. 3. Calcific atherosclerosis aorta. 4. Cardiomegaly. Follow-up full inspiration PA and lateral chest may be useful for better characterization of pulmonary findings. D/ / Naveed Shea / Naveed Shea Interpreting Provider: Naveed Shea Abdomen/Pelvis CT 01/12/19 18:55 IMPRESSION: 1. Large amount of stool within the rectum can be seen with fecal impaction. 2. No acute abnormality. 3. Bilateral renal calculi. 4. Small bilateral pleural effusions. D/ / Vickey Durham MD / Vickey Durham MD Interpreting Provider: Vickey Durham MD - Time Spent With Patient Total time spent is greater than 50% in coordination of care (as documented) at patient's floor/unit and/or counseling patient: Greater than 35 minutes
[2019-01-12] MEDS: Ringers Solution, Lactated 1,000 ML IVC SCH (23:48)
[2019-01-13 07:15] LABS: Basophils % 0.6 %; Eosinophils # 0.2 K/mcL (0.0-0.6); Eosinophils % 3.8 %; Hematocrit 32.9 % (35.3-44.9); Hemoglobin 10.8 g/dL (11.5-15.4); Immature Granulocytes % 0.2 % (0-4); Lymphocytes # 1.4 K/mcL (0.6-4.6); Lymphocytes % 26.5 %; Mean Corpuscular HGB Conc 32.8 g/dL (31.6-35.5); Mean Corpuscular Hemoglobin 34.3 pg (28.0-33.3); Mean Corpuscular Volume 104.4 fL (83.0-100.0); Mean Platelet Volume 11.1 fL (9.4-12.4); Monocytes # 0.7 K/mcL (0.0-1.3); Monocytes % 12.4 %; Platelet Count 160 K/mcL (140-400); Red Blood Count 3.15 M/mcL (3.82-4.97); Red Cell Distribution Width 12.6 % (11.5-14.5); Segmented Neutrophils % 56.5 %; White Blood Count 5.2 K/mcL (4.3-11.1)
[2019-01-13 07:33] LABS: Calcium 8.8 mg/dL (8.6-10.3); Potassium 3.4 mEq/L (3.5-5.1)
[2019-01-13] MEDS: Ringers Solution, Lactated 1,000 ML IVC SCH (09:32)
[2019-01-13] MEDS ORDERED: NON-FORMULARY MEDICATION 1 EACH EACH (Lactose-Reduced Food [Boost] 237 ML) PO SCH (12:00)
--- NOTE | 2019-01-13 12:06 | Internal Med Progress Note ---
Hospitalist Progress Note - Encounter Date of Encounter: 01/13/19 Time of Encounter: 09:50 - Subjective Interval History: Pt was seen and examined at bed side. Pt is more alert, awake and o to self only.. She still looks very confused. Talked to pt's daughter at bed side, who thinks pt is still not at baseline. She had one regular BM this morning - Exam Vitals: Temp Pulse Resp BP Pulse Ox 98.2 F 52 18 151/81 99 01/13/19 10:53 01/13/19 10:53 01/13/19 10:53 01/13/19 10:53 01/13/19 10:53 Exam: Gen: Alert, awake, Oriented to self only.. Confused Chest: Diminished breath sounds B/L, No wheezing, No crackles, No rales Heart: S1S2+ RRR No murmurs Abd: Soft, NT, BS +, No organomegaly Ext: No edema, pulses are palpable, No calf tenderness Neuro : No acute focal neuro deficits noticed, other than confusion / altered mental status Skin: No rash. - Assessment and Plan (1) UTI (urinary tract infection) Current Visit: No Status: Acute Assessment and Plan: UA - abnormal concerning for UTI changed abx to Rocephin since Augmentin might causing diarrhea will f/u on urine cx (2) Acute delirium Current Visit: No Status: Acute Assessment and Plan: Mostly due to toxic encephalopathy with UTI cont symptomatic and supportive care on IV abx gentle IV hydration (3) Acute kidney injury Current Visit: No Status: Acute Assessment and Plan: Noticed mild ROSS with CKD-3 Improved Cr / GFR seems to be at baseline (4) CKD (chronic kidney disease), stage III Current Visit: No Status: Chronic (5) Chronic diastolic heart failure Current Visit: No Status: Chronic Assessment and Plan: stable not in exacerbation resumed all home meds (6) Dementia Current Visit: No Status: Chronic Assessment and Plan: high risk for sun down syndrome resumed home meds will give PO Haldol PRN for delirium (7) Essential (primary) hypertension Current Visit: No Status: Chronic Assessment and Plan: resumed home meds (8) Hyperlipidemia Current Visit: No Status: Chronic Assessment and Plan: on statin (9) Diarrhea Current Visit: No Status: Acute Assessment and Plan: could be de to Augmentin abx changed to Rocephin cont close monitoring if Diarrhea persists, will check for C. Diff - Time Spent with Patient Total time spent is greater than 50% in coordination of care (as documented) at patient's floor/unit and/or counseling patient: Internal Medicine: Result - Labs CBC & Chem 7: 01/13/19 06:04 01/13/19 06:04 Labs: Short CBC 01/12/19 01/13/19 Range/Units 17:30 06:04 WBC 5.4 5.2 (4.3-11.1) K/mcL Hgb 11.1 L 10.8 L (11.5-15.4) g/dL Hct 33.5 L 32.9 L (35.3-44.9) % Plt Count 148 160 (140-400) K/mcL Neutrophils # 3.6 3.0 (1.6-8.9) K/mcL BMP 01/12/19 01/13/19 17:30 06:04 Sodium 141 141 Potassium 3.7 3.4 L Chloride 105 104 Carbon Dioxide 24 27 BUN 24 H 19 Creatinine 1.24 H 1.06 Glucose 103 88 Calcium 9.1 8.8 Cardiac Enzymes 01/12/19 Range/Units 17:30 Troponin I 0.03 (< 0.04) ng/mL Liver Function 01/12/19 Range/Units 17:30 Total Bilirubin 0.5 (0.3-1.0) mg/dL Direct Bilirubin 0.1 (0.0-0.2) mg/dL AST 17 (13-39) Units/L ALT 7 (7-52) Units/L Alkaline Phosphatase 67 (34-104) Units/L Albumin 3.2 L (3.5-5.7) g/dL Urine 01/12/19 Range/Units 18:05 Urine Color Yellow (Yellow) Urine Clarity Clear (Clear) Urine pH 6.5 (5.0-8.0) pH Units Ur Specific [place] 1.010 (1.010-1.025) Urine Protein 30 H (Neg-Trace) mg/dL Urine Glucose (UA) Normal (Normal) mg/dL - ABG Interpretation ABG results: PT/INR, D-dimer PT 11.2 Seconds (9.4-12.1) 01/12/19 17:30 - Impressions Impressions Chest X-Ray 01/12/19 17:00 IMPRESSION: 1. Technically limited LPO projection with the patient's chin and neck obscuring the left lung apex. 2. No definite acute pulmonary disease. 3. Calcific atherosclerosis aorta. 4. Cardiomegaly. Follow-up full inspiration PA and lateral chest may be useful for better characterization of pulmonary findings. D/ / Naveed Shea / Naveed Shea Interpreting Provider: Naveed Shea Abdomen/Pelvis CT 01/12/19 18:55 IMPRESSION: 1. Large amount of stool within the rectum can be seen with fecal impaction. 2. No acute abnormality. 3. Bilateral renal calculi. 4. Small bilateral pleural effusions. D/ / Vickey Durham MD / Vickey Durham MD Interpreting Provider: Vickey Durham MD Consult Discharge Plan - Plan Referrals: Karen Salomon, BILLING ASSOCIATE [Primary Care Provider] - 01/20/19 9:00 am (1) UTI (urinary tract infection) Qualifiers: Urinary tract infection type: acute cystitis Hematuria presence: with hematuria Qualified Code(s): N30.01 - Acute cystitis with hematuria (6) Dementia Qualifiers: Dementia type: unspecified type Dementia behavioral disturbance: without behavioral disturbance Qualified Code(s): F03.90 - Unspecified dementia without behavioral disturbance (8) Hyperlipidemia Qualifiers: Hyperlipidemia type: unspecified Qualified Code(s): E78.5 - Hyperlipidemia, unspecified (9) Diarrhea Qualifiers: Diarrhea type: unspecified type Qualified Code(s): R19.7 - Diarrhea, unspecified
[2019-01-13] MEDS ORDERED: Ondansetron 4 MG/2 ML VIAL IVP PRN (12:58)
[2019-01-13] MEDS: cefTRIAXone 1,000 MG in Water for inj. (sterile) 20 ML 10 ML IVP SCH (13:48)
[2019-01-13] MEDS: Aspirin 81 MG TAB.CHEW PO SCH (13:50)
[2019-01-13] MEDS: Anastrozole 1 MG TABLET PO SCH (13:50)
[2019-01-13] MEDS: amLODIPine 5 MG TABLET PO SCH (13:51)
--- NOTE | 2019-01-13 17:46 | Electrocardiograph Report ---
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
[2019-01-14] MEDS: Levothyroxine 25 MCG TABLET PO SCH (06:14)
[2019-01-14] MEDS ORDERED: CRANBERRY FRUIT EXTRACT 405 MG PO SCH (09:00)
[2019-01-14] MEDS ORDERED: MEMANTINE HCL 21 MG PO SCH (09:00)
[2019-01-14] MEDS ORDERED: Haloperidol Lactate 5 MG/ML VIAL IVP PRN (09:43)
[2019-01-14] MEDS: Multivit/Ca/Min/Fe/FA 1 TAB TABLET PO SCH (10:00)
[2019-01-14] MEDS: Cholecalciferol (D-3) 1,000 UNIT TABLET PO SCH (10:00)
[2019-01-14] MEDS: amLODIPine 5 MG TABLET PO SCH (10:00)
[2019-01-14] MEDS: Anastrozole 1 MG TABLET PO SCH (10:00)
[2019-01-14] MEDS: cefTRIAXone 1,000 MG in Water for inj. (sterile) 20 ML 10 ML IVP SCH ×2 (10:00→19:15)
[2019-01-14] MEDS: Aspirin 81 MG TAB.CHEW PO SCH (10:00)
--- NOTE | 2019-01-14 12:38 | Internal Med Progress Note ---
Hospitalist Progress Note - Encounter Date of Encounter: 01/14/19 Time of Encounter: 09:30 - Subjective Interval History: Ms. Hamilton is a 88 y/o F with known PMH of Dementia, HTN, CKD-3, grade 2 invasive ductal carcinoma of the right breast diagnosed in January 2017 receiving neoadjuvant hormone therapy treatment currently on Arimidex and recurrent UTI pt was brounght into ER with AMS and generlized weakness. She does have abnomral UA. She was admitted in the hospital and placed her on empirical abx IV Rocephin. She is little sleepy today and still confused , getting agitated at times. - Exam Vitals: Temp Pulse Resp BP Pulse Ox 98.4 F 54 17 156/73 100 01/14/19 07:11 01/14/19 07:11 01/14/19 07:11 01/14/19 07:11 01/14/19 07:11 Exam: Gen: Alert, awake, Oriented to self only.. Confused and agitated Chest: Diminished breath sounds B/L, No wheezing, No crackles, No rales Heart: S1S2+ RRR No murmurs Abd: Soft, NT, BS +, No organomegaly Ext: No edema, pulses are palpable, No calf tenderness Neuro : No acute focal neuro deficits noticed, other than confusion / altered mental status Skin: No rash. - Assessment and Plan (1) UTI (urinary tract infection) Current Visit: No Status: Acute Assessment and Plan: UA - abnormal concerning for UTI Cont Augmentin Urine cx - No growth however due to her symptoms and recurrent UTI, will treat with 5 days Abx (2) Acute delirium Current Visit: No Status: Acute Assessment and Plan: Mostly due to toxic encephalopathy with UTI cont symptomatic and supportive care started her on Haldol PRN (3) Acute kidney injury Current Visit: No Status: Acute Assessment and Plan: Noticed mild ROSS with CKD-3 Improved Cr / GFR seems to be at baseline (4) CKD (chronic kidney disease), stage III Current Visit: No Status: Chronic (5) Chronic diastolic heart failure Current Visit: No Status: Chronic Assessment and Plan: stable not in exacerbation resumed all home meds (6) Dementia Current Visit: No Status: Chronic Assessment and Plan: high risk for sun down syndrome resumed home meds On Haldol PRN for delirium Will start her on Seroquel (7) Essential (primary) hypertension Current Visit: No Status: Chronic Assessment and Plan: Cont home meds Fairly controlled on IV Hydralazine PRN (8) Hyperlipidemia Current Visit: No Status: Chronic Assessment and Plan: on statin (9) Diarrhea Current Visit: No Status: Acute Assessment and Plan: could be de to Augmentin abx changed to Rocephin resolved - Time Spent with Patient Total time spent is greater than 50% in coordination of care (as documented) at patient's floor/unit and/or counseling patient: Internal Medicine: Result - Labs CBC & Chem 7: 01/13/19 06:04 01/13/19 06:04 - ABG Interpretation ABG results: PT/INR, D-dimer PT 11.2 Seconds (9.4-12.1) 01/12/19 17:30 Consult Discharge Plan - Plan Referrals: Karen Salomon, CHIEF DESIGN DRAFTER [Primary Care Provider] - 01/20/19 9:00 am (1) UTI (urinary tract infection) Qualifiers: Urinary tract infection type: acute cystitis Hematuria presence: with hematuria Qualified Code(s): N30.01 - Acute cystitis with hematuria (6) Dementia Qualifiers: Dementia type: unspecified type Dementia behavioral disturbance: without behavioral disturbance Qualified Code(s): F03.90 - Unspecified dementia without behavioral disturbance (8) Hyperlipidemia Qualifiers: Hyperlipidemia type: unspecified Qualified Code(s): E78.5 - Hyperlipidemia, unspecified (9) Diarrhea Qualifiers: Diarrhea type: unspecified type Qualified Code(s): R19.7 - Diarrhea, unspecified
[2019-01-15] MEDS: Levothyroxine 25 MCG TABLET PO SCH (06:23)
[2019-01-15] MEDS ORDERED: CefTRIAXone 1,000 MG VIAL ONE (09:56)
[2019-01-15] MEDS: Cholecalciferol (D-3) 1,000 UNIT TABLET PO SCH (09:58)
[2019-01-15] MEDS: Aspirin 81 MG TAB.CHEW PO SCH (09:59)
[2019-01-15] MEDS: Anastrozole 1 MG TABLET PO SCH (09:59)
[2019-01-15] MEDS: Multivit/Ca/Min/Fe/FA 1 TAB TABLET PO SCH (09:59)
[2019-01-15] MEDS: amLODIPine 5 MG TABLET PO SCH (09:59)
[2019-01-15] MEDS: cefTRIAXone 1,000 MG in Water for inj. (sterile) 20 ML 10 ML IVP SCH (09:59)
--- NOTE | 2019-01-15 11:47 | Discharge Summary ---
- NOTES TO OUTPATIENT PROVIDER Notes to Outpatient Provider: f/u with PCP in one week. Date of Encounter: 01/15/19 Time of Encounter: 11:43 - Discharge Diagnosis (1) UTI (urinary tract infection) Priority: Primary Status: Acute Qualifiers: Urinary tract infection type: acute cystitis Hematuria presence: with hematuria Qualified Code(s): N30.01 - Acute cystitis with hematuria (2) Acute delirium Priority: Primary Status: Acute (3) Acute kidney injury Priority: Primary Status: Acute (4) CKD (chronic kidney disease), stage III Priority: Secondary Status: Chronic (5) Chronic diastolic heart failure Priority: Secondary Status: Chronic (6) Dementia Priority: Secondary Status: Chronic Qualifiers: Dementia type: unspecified type Dementia behavioral disturbance: without behavioral disturbance Qualified Code(s): F03.90 - Unspecified dementia without behavioral disturbance (7) Essential (primary) hypertension Priority: Secondary Status: Chronic (8) Hyperlipidemia Priority: Secondary Status: Chronic Qualifiers: Hyperlipidemia type: unspecified Qualified Code(s): E78.5 - Hyperlipidemia, unspecified (9) Diarrhea Priority: Secondary Status: Acute Qualifiers: Diarrhea type: unspecified type Qualified Code(s): R19.7 - Diarrhea, unspecified Hospital course: Ms. Hamilton is a 88 y/o F with known PMH of Dementia, HTN, CKD-3, grade 2 invasive ductal carcinoma of the right breast diagnosed in January 2017 receiving neoadjuvant hormone therapy treatment currently on Arimidex and recurrent UTI pt was brought into ER with AMS and generalized weakness. She did have abnormal UA. She was admitted in the hospital and placed her on empirical abx IV Rocephin. She did have few episodes of agitation / delirium mostly due to toxic encep halopathy with UTI and advanced dementia. She was placed on Seroquel and give Haldol PRN. Today she is resting comfortably. Her urine cx did not grow any bacteria, however with her symptoms and abnormal UA, will treat her 5 days course of abx . She was evaluated by PT / OT for her physical deconditioning. who recommend ECF placement for short term rehab. So will d/c her to ECF in stable condition today. - Time Spent with Patient Total time spent providing and/or coordinating discharge services: - Discharge Medications Prescriptions: New Haloperidol [Haldol] 0.5 mg PO BID PRN #10 tablet PRN Reason: Agitation Cephalexin [Keflex] 500 mg PO TID #9 capsule Quetiapine Fumarate [Seroquel] 25 mg PO HS #30 tablet Continued Donepezil [Aricept] 10 mg PO HS Cranberry Fruit Extract [Cranberry] 405 mg PO DAILY Atenolol [Tenormin] 100 mg PO DAILY Ferrous Sulfate 325 mg PO BID amLODIPine [Norvasc] 5 mg PO DAILY Anastrozole [Arimidex] 1 mg PO DAILY 30 Days #30 tablet Docusate [Colace] 100 mg PO BID Levothyroxine Sodium [Levo-T] 25 mcg PO QAM Cholecalciferol (D-3) [Vitamin D] 2,000 unit PO DAILY Ranitidine Oral Soln [Zantac] 75 mg PO BID Multivit-Min/FA/Lycopen/Lutein [Adults 50+ Multivitamin Tablet] 1 tab PO DAILY Memantine HCl [Namenda Xr] 21 mg PO DAILY Aspirin [Adult Aspirin Regimen] 81 mg PO DAILY Polyethylene Glycol 3350 [MiraLax bowel prep] 17 gm PO DAILY PRN PRN Reason: Constipation Discontinued Nitrofurantoin Macrocrystal [Nitrofurantoin] 100 mg PO BID Home Medications: Atenolol [Tenormin] 100 mg PO DAILY 10/29/15 [History] Cranberry Fruit Extract [Cranberry] 405 mg PO DAILY 10/29/15 [History] Donepezil [Aricept] 10 mg PO HS 10/29/15 [History] Ferrous Sulfate 325 mg PO BID 02/28/16 [History] amLODIPine [Norvasc] 5 mg PO DAILY 06/03/18 [History] Anastrozole [Arimidex] 1 mg PO DAILY 30 Days #30 tablet 06/10/18 [Rx] Docusate [Colace] 100 mg PO BID 10/02/18 [History] Cholecalciferol (D-3) [Vitamin D] 2,000 unit PO DAILY 11/23/18 [History] Levothyroxine Sodium [Levo-T] 25 mcg PO QAM 11/23/18 [History] Memantine HCl [Namenda Xr] 21 mg PO DAILY 11/23/18 [History] Multivit-Min/FA/Lycopen/Lutein [Adults 50+ Multivitamin Tablet] 1 tab PO DAILY 11/23/18 [History] Ranitidine Oral Soln [Zantac] 75 mg PO BID 11/23/18 [History] Aspirin [Adult Aspirin Regimen] 81 mg PO DAILY 01/13/19 [History] Polyethylene Glycol 3350 [MiraLax bowel prep] 17 gm PO DAILY PRN 01/13/19 [Hist ory] Cephalexin [Keflex] 500 mg PO TID #9 capsule 01/15/19 [Rx] Haloperidol [Haldol] 0.5 mg PO BID PRN #10 tablet 01/15/19 [Rx] Quetiapine Fumarate [Seroquel] 25 mg PO HS #30 tablet 01/15/19 [Rx] Allergies/Adverse Reactions: Allergy/AdvReac Type Severity Reaction Status Date / Time ciprofloxacin [From Cipro] AdvReac Diarrhea Verified 11/23/18 14:35 Date of admission: 01/12/19 20:59 Primary care physician: Karen Salomon CNP Consults: 01/13/19 13:10 Consult to Occupational Therapy [CONS] Routine Comment: Evaluate, develop and implement POC Reason for Consult: WEAKNESS Does patient have active BEDREST order?: No Is patient medically & hemodynamically stable?: Yes Consult to Physical Therapy [CONS] Routine Comment: Evaluate, develop and implement POC Reason for Consult: WEAKNESS Does patient have active BEDREST order?: No Is patient medically & hemodynamically stable?: Yes 01/15/19 08:31 Consult to Reuse Technician [CONS] Routine Reason for SW Consult: PT/OT RECOMMEND SNF - Constitutional Vitals: Temp Pulse Resp BP Pulse Ox 97.7 F 79 15 167/70 95 01/15/19 06:35 01/15/19 06:35 01/15/19 06:35 01/15/19 06:35 01/15/19 06:35 General appearance: Present: cooperative, A&O X 1, no acute distress, answers questions appropriately Exam: Gen: Alert, awake, Oriented to self only.. resting comfortably Chest: Diminished breath sounds B/L, No wheezing, No crackles, No rales Heart: S1S2+ RRR No murmurs Abd: Soft, NT, BS +, No organomegaly Ext: No edema, pulses are palpable, No calf tenderness Neuro : No acute focal neuro deficits noticed, other than altered mental status Skin: No rash. - Patient Status Disposition: Transfer SNF Condition: Good Overall status at discharge: patient is back to baseline - Discharge Instructions Follow Up With: Karen Salomon CNP [Primary Care Provider] - 01/20/19 9:00 am - Diet and Activity Activity: as per physical therapy, increase activity as tolerated Diet: low salt diet
--- NOTE | 2019-01-15 11:49 | Physician Discharge Referral ---
ExtendedCare Referral Info Transfer To: ECF Provider in Charge after Transfer: PCP Institutional Level of Care: Skilled - Diagnosis (1) UTI (urinary tract infection) Status: Acute (2) Acute delirium Status: Acute (3) Acute kidney injury Status: Acute (4) CKD (chronic kidney disease), stage III Status: Chronic (5) Chronic diastolic heart failure Status: Chronic (6) Dementia Status: Chronic (7) Essential (primary) hypertension Status: Chronic (8) Hyperlipidemia Status: Chronic (9) Diarrhea Status: Acute - Transfer Medications Prescriptions: Haloperidol [Haldol] 0.5 mg PO BID PRN #10 tablet PRN Reason: Agitation Cephalexin [Keflex] 500 mg PO TID #9 capsule Quetiapine Fumarate [Seroquel] 25 mg PO HS #30 tablet Home Medications: Atenolol [Tenormin] 100 mg PO DAILY 10/29/15 [History] Cranberry Fruit Extract [Cranberry] 405 mg PO DAILY 10/29/15 [History] Donepezil [Aricept] 10 mg PO HS 10/29/15 [History] Ferrous Sulfate 325 mg PO BID 02/28/16 [History] amLODIPine [Norvasc] 5 mg PO DAILY 06/03/18 [History] Anastrozole [Arimidex] 1 mg PO DAILY 30 Days #30 tablet 06/10/18 [Rx] Docusate [Colace] 100 mg PO BID 10/02/18 [History] Cholecalciferol (D-3) [Vitamin D] 2,000 unit PO DAILY 11/23/18 [History] Levothyroxine Sodium [Levo-T] 25 mcg PO QAM 11/23/18 [History] Memantine HCl [Namenda Xr] 21 mg PO DAILY 11/23/18 [History] Multivit-Min/FA/Lycopen/Lutein [Adults 50+ Multivitamin Tablet] 1 tab PO DAILY 11/23/18 [History] Ranitidine Oral Soln [Zantac] 75 mg PO BID 11/23/18 [History] Aspirin [Adult Aspirin Regimen] 81 mg PO DAILY 01/13/19 [History] Polyethylene Glycol 3350 [MiraLax bowel prep] 17 gm PO DAILY PRN 01/13/19 [Hist ory] Cephalexin [Keflex] 500 mg PO TID #9 capsule 01/15/19 [Rx] Haloperidol [Haldol] 0.5 mg PO BID PRN #10 tablet 01/15/19 [Rx] Quetiapine Fumarate [Seroquel] 25 mg PO HS #30 tablet 01/15/19 [Rx] Allergies/Adverse Reactions: Allergy/AdvReac Type Severity Reaction Status Date / Time ciprofloxacin [From Cipro] AdvReac Diarrhea Verified 11/23/18 14:35 - Respiratory Orders Smoking Cessation: Smoking cessation has been advised. For more information, call the [place] Tobacco Quit Line at 9-249-ERNL-NOW. CERTIFICATION: I certify that the transfer of the above named patient to an Extended Care Facility is necessary for the continuing treatment of the diagnosis listed. The above information is true and accurate reflection of patient's current condition. Confidential - Redisclosure prohibited without a patient's written consent.
[2019-01-16 03:13] LABS: Hematocrit 30.3 % (35.3-44.9); Mean Corpuscular Hemoglobin 33.9 pg (28.0-33.3); Mean Corpuscular Volume 102.7 fL (83.0-100.0); Platelet Count 127 K/mcL (140-400); Red Blood Count 2.95 M/mcL (3.82-4.97); Red Cell Distribution Width 12.8 % (11.5-14.5); White Blood Count 3.7 K/mcL (4.3-11.1)
[2019-01-16 03:37] LABS: Calcium 8.5 mg/dL (8.6-10.3); Potassium 3.3 mEq/L (3.5-5.1)
[2019-01-16] MEDS: Levothyroxine 25 MCG TABLET PO SCH (05:38)
[2019-01-16] MEDS: Cholecalciferol (D-3) 1,000 UNIT TABLET PO SCH (09:18)
[2019-01-16] MEDS: amLODIPine 5 MG TABLET PO SCH (09:18)
[2019-01-16] MEDS: Aspirin 81 MG TAB.CHEW PO SCH (09:18)
[2019-01-16] MEDS: Multivit/Ca/Min/Fe/FA 1 TAB TABLET PO SCH (09:18)
[2019-01-16] MEDS: cefTRIAXone 1,000 MG in Water for inj. (sterile) 20 ML 10 ML IVP SCH (09:18)
[2019-01-16] MEDS: Anastrozole 1 MG TABLET PO SCH (09:18)
[2019-01-16 12:05] VITALS: BP 96/64
--- NOTE | 2019-01-16 12:11 | Internal Med Progress Note ---
Hospitalist Progress Note - Encounter Date of Encounter: 01/16/19 Time of Encounter: 11:55 - Subjective Interval History: Ms. Hamilton is a 88 y/o F with known PMH of Dementia, HTN, CKD-3, grade 2 invasive ductal carcinoma of the right breast diagnosed in January 2017 receiving neoadjuvant hormone therapy treatment currently on Arimidex and recurrent UTI pt was brought into ER with AMS and generalized weakness. She did have abnormal UA. She was admitted in the hospital and placed her on empirical abx IV Rocephin. She did have few episodes of agitation / delirium mostly due to toxic encephalopathy with UTI and advanced dementia. She was placed on Seroquel and give Haldol PRN. Today she is resting comfortably. Her urine cx did not grow any bacteria, however with her symptoms and abnormal UA, will treat her 5 days course of abx . She was evaluated by PT / OT for her physical deconditioning. who recommend ECF placement for short term rehab. She was not able to go to ECF y/d, since there were no bed available for the ECF requested by family. Patient was seen and examined at bedside today . She is more alert, awake and oriented to self . She denied any chest pain/shortness of breath .No events over night. - Exam Vitals: Temp Pulse Resp BP Pulse Ox 98.0 F 75 18 128/76 98 01/16/19 06:52 01/16/19 06:52 01/16/19 06:52 01/16/19 06:52 01/16/19 06:52 Exam: Gen: Alert, awake, Oriented to self only.. resting comfortably Chest: Diminished breath sounds B/L, No wheezing, No crackles, No rales Heart: S1S2+ RRR No murmurs Abd: Soft, NT, BS +, No organomegaly Ext: No edema, pulses are palpable, No calf tenderness Neuro : No acute focal neuro deficits noticed, other than altered mental status Skin: No rash. - Assessment and Plan (1) UTI (urinary tract infection) Current Visit: No Status: Acute Assessment and Plan: UA - abnormal concerning for UTI Urine cx - No growth however due to her symptoms and recurrent UTI, will treat with 5 days Abx (2) Acute delirium Current Visit: No Status: Acute Assessment and Plan: Mostly due to toxic encephalopathy with UTI cont symptomatic and supportive care on Haldol PRN cont Seroquel (3) Acute kidney injury Current Visit: No Status: Acute Assessment and Plan: Noticed mild ROSS with CKD-3 Improved Cr / GFR seems to be at baseline (4) CKD (chronic kidney disease), stage III Current Visit: No Status: Chronic (5) Chronic diastolic heart failure Current Visit: No Status: Chronic Assessment and Plan: stable not in exacerbation resumed all home meds (6) Dementia Current Visit: No Status: Chronic Assessment and Plan: high risk for sun down syndrome resumed home meds On Haldol PRN for delirium Will start her on Seroquel (7) Essential (primary) hypertension Current Visit: No Status: Chronic Assessment and Plan: Cont home meds Fairly controlled on IV Hydralazine PRN (8) Hyperlipidemia Current Visit: No Status: Chronic Assessment and Plan: on statin (9) Diarrhea Current Visit: No Status: Acute Assessment and Plan: resolved - Time Spent with Patient Total time spent is greater than 50% in coordination of care (as documented) at patient's floor/unit and/or counseling patient: Internal Medicine: Result - Labs CBC & Chem 7: 01/16/19 02:41 01/16/19 02:41 Labs: Short CBC 01/16/19 Range/Units 02:41 WBC 3.7 L (4.3-11.1) K/mcL Hgb 10.0 L (11.5-15.4) g/dL Hct 30.3 L (35.3-44.9) % Plt Count 127 L (140-400) K/mcL BMP 01/16/19 02:41 Sodium 142 Potassium 3.3 L Chloride 107 Carbon Dioxide 26 BUN 18 Creatinine 1.18 Glucose 84 Calcium 8.5 L - ABG Interpretation ABG results: PT/INR, D-dimer PT 11.2 Seconds (9.4-12.1) 01/12/19 17:30 Consult Discharge Plan - Plan Referrals: Karen Salomon, CUSTOMER ADVISOR [Primary Care Provider] - 01/20/19 9:00 am Prescriptions: Haloperidol [Haldol] 0.5 mg PO BID PRN #10 tablet PRN Reason: Agitation Cephalexin [Keflex] 500 mg PO TID #9 capsule Quetiapine Fumarate [Seroquel] 25 mg PO HS #30 tablet (1) UTI (urinary tract infection) Qualifiers: Urinary tract infection type: acute cystitis Hematuria presence: with hematuria Qualified Code(s): N30.01 - Acute cystitis with hematuria (6) Dementia Qualifiers: Dementia type: unspecified type Dementia behavioral disturbance: without behavioral disturbance Qualified Code(s): F03.90 - Unspecified dementia without behavioral disturbance (8) Hyperlipidemia Qualifiers: Hyperlipidemia type: unspecified Qualified Code(s): E78.5 - Hyperlipidemia, unspecified (9) Diarrhea Qualifiers: Diarrhea type: unspecified type Qualified Code(s): R19.7 - Diarrhea, unspecified
== END 2019-01-16 14:30 ==
LOC: 3BNU 16:49 → EMEROOARM 16:49 → SUATTDRO 20:59 → 3BNU 22:54
PROVIDERS: ADMIT Internal Medicine; ATTEND Family Medicine